=== PATIENT | female | born 1980 ===

== ENCOUNTER 2024-04-07 18:38 | Emergency (ER) | payer SELFPAY ==
[2024-04-07 18:41] VITALS: BP 190/98; PULSE 89; TEMP 37.2; O2SAT 98; BMI 36.6
[2024-04-07 18:57] LABS: Bilirubin Urine SMALL (NEGATIVE); Blood Urine LARGE (NEGATIVE); Clarity Urine CLEAR (CLEAR); Color Urine DK. BROWN (YELLOW); Glucose Urine UA NEGATIVE (NEGATIVE); Ketones Urine TRACE mg/dL (NEGATIVE); Leukocyte Esterase Urine TRACE (NEGATIVE); Nitrite Urine POSITIVE (NEGATIVE); Protein Urine >=300 mg/dL (NEG/TRACE); Specific Gravity Urine >=1.030 (1.005-1.025); pH Urine 6.5 (5.0-9.0)
[2024-04-07 18:58] LABS: Urine Microscopic Indicated YES
[2024-04-07 18:59] LABS: HCG Qualitative Urine* NEGATIVE (NEGATIVE); Internal Control Within Normal Limits
[2024-04-07] MEDS: PHENAZOPYRIDINE 100 MG TABLET 200 MG PO (19:05)
[2024-04-07 19:06] LABS: Bacteria Urine SMALL #/HPF (NONE SEEN); Mucus Urine NONE SEEN (NONE SEEN); RBC Urine >100 #/HPF (0-2)
[2024-04-07 19:08] LABS: Cast Seen? NONE SEEN #/LPF (NONE SEEN); Crystals Seen? None Seen #/HPF (None Seen); Squamous Epithelial Cell Urine RARE #/LPF (NONE/RARE); Urine Culture Indicated YES
[2024-04-07] MEDS: SULFAMETHOXAZOLE/TRIMETHOPRIM 800-160 MG TABLET 1 TAB PO (19:20)
--- NOTE | 2024-04-07 20:42 | ED_ITS ---
HPI - Female Genitourinary General Chief complaint: Urogenital-Female Stated complaint: UTI SYMPTOMS Time Seen by Provider: 04/07/24 18:43 Source: patient Mode of arrival: walk-in Limitations: no limitations History of Present Illness HPI Narrative: 43-year-old female presents to the emergency department with complaint of dysuria. Onset about an hour prior to arrival. Has had associated discolored urine, urinary frequency, constant pressure in her bladder region. Denies any fever, chills, nausea, vomiting, abdominal pain, back pain. History of urine infections in the past. Quality:?Burning, pressure Severity:?Moderate Timing:?As above, constant Context: Normal setting and activity? Modifying factors:?worse with urinating Associated symptoms: as above Related Data Previous Rx's ?Medication ?Instructions ?Recorded phenazopyridine 200 mg tablet 200 mg PO Q8H 6 doses #6 tabs 04/07/24 (Pyridium) sulfamethoxazole 800 1 tab PO BID 5 days #10 tabs 04/07/24 mg-trimethoprim 160 mg tablet (Bactrim DS) Allergies Allergy/AdvReac Type Severity Reaction Status Date / Time Penicillins Allergy Severe Hives Verified 04/07/24 18:45 Review of Systems ROS Constitutional Denies: fever or chills Cardiovascular Denies: chest pain Respiratory Denies: shortness of breath Gastrointestinal Denies: abdominal pain, nausea or vomiting Genitourinary Reports: painful urination, urinary frequency, blood in urine and pelvic pain; Denies: vaginal bleeding or vaginal discharge Exam Constitutional Vital Signs, click to edit/add: Last Vital Signs Temp 99.0 F 04/07/24 18:41 Pulse 89 04/07/24 18:41 Resp 18 04/07/24 18:41 BP 190/98 H 04/07/24 18:41 Pulse Ox 98 04/07/24 18:41 O2 Del Method Room Air 04/07/24 18:41 Documenting provider has reviewed patient's vital signs: yes Common normals: no apparent distress, oriented x3 and alert General appearance: not in distress [facility] Common normals: normocephalic and head/scalp atraumatic Head and scalp: normocephalic and atraumatic Respiratory Common normals: normal respiratory effort and clear to auscultation bilaterally Effort & inspection: able to speak in complete sentences Auscultation: clear to auscultation bilaterally Cardio Common normals: regular rate, regular rhythm and no murmurs Rate: regular rate Rhythm: regular rhythm GI Common normals: Normal to inspection, nondistended, normoactive bowel sounds present, soft to palpation and non-tender Palpation: soft Common normals: no CVA tenderness Bladder/kidney exam: no CVA tenderness Back & Pelvis Common normals: no CVA tenderness Neuro Common normals: oriented x3, moves all extremities, no focal motor deficits and gait normal Sensorium/orientation: alert Course Vital Signs Vital signs: Vital Signs Temperature 99.0 F 04/07/24 18:41 Pulse Rate 89 04/07/24 18:41 Respiratory Rate 18 04/07/24 18:41 Blood Pressure 190/98 H 04/07/24 18:41 Pulse Oximetry 98 04/07/24 18:41 Oxygen Delivery Method Room Air 04/07/24 18:41 Temperature 99.0 F 04/07/24 18:41 Pulse Rate 89 04/07/24 18:41 Respiratory Rate 18 04/07/24 18:41 Blood Pressure 190/98 H 04/07/24 18:41 Pulse Oximetry 98 04/07/24 18:41 Oxygen Delivery Method Room Air 04/07/24 18:41 MDM - Female Genitourinary MDM Narrative Medical decision making narrative: This is a pleasant 43-year-old female presents to the emergency department complete she chief complaint of dysuria. Described as burning. Has constant pressure in bladder region as well. Onset about an hour prior to arrival. Has had associated urinary frequency and discoloration of the urine. Denies any fever, chills, nausea, vomiting, back or flank pain, vaginal discharge. On arrival, afebrile, vital signs are stable. On exam, nontoxic, well-appearing patient in no distress. Heart regular rate and rhythm. Lung sounds clear and equal bilaterally. Abdomen soft, nontender. No CVA tenderness. Urinalysis reveals evidence of infection with nitrates, white blood cells, red blood cells. Culture was ordered. test was negative. Favor cystitis Kidney stones, pyelonephritis less likely based on history and physical exam Patient was given dose of Pyridium and Bactrim in the emergency department Disposition ? The patient was discharged. Plan: Patient will be discharged to home. Condition at time of disposition: stable Prescription for Bactrim and Pyridium sent to her pharmacy. Advised to follow up with primary provider. Advised to return for any worsening and/or development of new, concerning signs or symptoms PLEASE NOTE: Portions of the medical record may have been produced using electronic scientific laboratory supervisor and may contain errors with respect to translation of words which may not have been identified prior to finalization of the chart. Medical Records Attestation: I reviewed the patient's medical records. Lab Data Attestation: I reviewed the patient's lab results. Labs: Lab Results 04/07/24 Range/Units 18:46 Urine Color Dk. brown (YELLOW) Urine Clarity Clear (CLEAR) Urine pH 6.5 (5.0-9.0) Ur Specific [place] >=1.030 A (1.005-1.025) Urine Protein >=300 A (NEG/TRACE) mg/dL Urine Glucose (UA) Negative (NEGATIVE) mg/dL Urine Ketones Trace A (NEGATIVE) mg/dL Urine Occult Blood Large A (NEGATIVE) Urine Nitrite Positive A (NEGATIVE) Urine Bilirubin Small A (NEGATIVE) Urine Urobilinogen 1.0 (0.2-1.0) EU/dL Ur Leukocyte Esterase Trace A (NEGATIVE) Urine RBC >100 A (0-2) #/HPF Urine WBC 5-10 A (NONE SEEN) #/HPF Ur Squamous Epith Cells Rare (NONE/RARE) #/LPF Urine Crystals None seen (None Seen) #/HPF Urine Bacteria Small A (NONE SEEN) #/HPF Urine Casts None seen (NONE SEEN) #/LPF Urine Mucus None seen (NONE SEEN) Ur Culture Indicated? Yes Urine HCG, Qual Negative (NEGATIVE) Discharge Plan Discharge Stand Alone Forms: Portal Instructions Chief Complaint: Urogenital-Female Clinical Impression: Cystitis, Dysuria Patient Disposition: Home, Self-Care Time of Disposition Decision: 19:23 Condition: Good Mode of Transportation: Private Vehicle Prescriptions / Home Meds: New sulfamethoxazole-trimethoprim [Bactrim DS] 800-160 mg tablet 1 tab PO BID 5 Days Qty: 10 0RF phenazopyridine [Pyridium] 200 mg tablet 200 mg PO Q8H Qty: 6 0RF Print Language: Slovenian Instructions: Urinary Tract Infection in Women (ED) Referrals: Vu Childs MD [Physician] - 1 week Discharge Date/Time: 04/07/24 19:51
== END 2024-04-07 19:51 | disposition home or self-care (01) ==
PROVIDERS: Physician Assistant; Emergency Provider Emergency Medicine
DX: N30.90 Cystitis, unspecified without hematuria (principal); R30.0 Dysuria
CPT/HCPCS: 81001; 84703; 87086; 99283

== ENCOUNTER 2024-05-27 20:39 | Emergency (ER) | payer OTHER, SELFPAY ==
[2024-05-27 20:44] VITALS: BP 198/93; PULSE 79; TEMP 36.8; O2SAT 98; BMI 39.5
--- OUTSIDE RECORDS SUMMARY | 2024-05-27 20:48 | XMS_ITS | CCD ---
Author Organization [facility] Care Team Providers Care Skein Straightener Name Role Phone No, Physician Unavailable Unavailable Dilip Christensen Primary Care Provider Unavailable Primary Care Provider UnavailCYDNEY Plunkett Referring Unavailable No Family, Physician Primary Care Unavailable Dilip Christensen MD Primary Care Provider DILIP CHRISTENSEN Primary Care Unavailable SENAIT MINAYA Attending Unavailable NONA YUNG Admitting Unavailable NONA YUNG Referring Unavailable DILIP CHRISTENSEN Primary Care Unavailable FAZAL WALKER Attending Unavailable Dilip Christensen MD Primary Care Provider [phone] MANI SCHAFFER Attending Unavailable DILIP CHRISTENSEN Primary Care Unavailable MANI SCHAFFER Attending Unavailable FLORESITA JENKINS Referring Unavaila ble DILIP CHRISTENSEN Primary Care Unavailable Floresita Jenkins Primary Care Provider Renee Koehlera Lucrecia Unavailable Hi Hull Unavailable Unavailable Unavailable Unavailable Zakia DESIGN AGENT, CNM L Attending Unavailable ERIKA Koehler Ashyoava L Unavailable [phone] Jennifer King MD Unavailable [phone] Floresita Jenkins Primary Care Provider [phone] Zakia JAMES Asheena L Unavailable Jennifer King MD Unavailable VANDANA DUMONT Attending Unav ailable ONE, TRAUMA Consulting Unavailable DILIP CHRISTENSEN Primary Care Unavailable VANDANA DUMONT Admitting Unav ailable VANDANA DUMONT Referring Unav ailable DILIP CHRISTENSEN Primary Care Unavailable Sussy ULRICH, Dilip Primary Care Provider Dilip Christensen MD Unavailable [facility], sarah Schafer Unavailable [facility], Ye Unavailable *Insured Unavailable Unavailable Blanco CNM, Bhavya Unavailable DIET/NUTRITIONAL COUNSELING, *[facility] Unavailable Unavailable [facility] Unavailable [facility] Unavailable [facility] Unavailable Denzel LUGO, Sterling Unavailable BENEFITS MANAGER, *[facility] Unavailable [facility] Unavailable [employer], [facility], [place] Unavailab le Gregory PLANNER CHIEF, Floresita Unavailable [phone] [facility]ga Walsh Unavailable zzz. Farhana ULRICH, Isiah Unavailable Toya ROGEL, Melissa Unavailable Unavailable Brandi ROGEL, Lucie Unavailable Unavailable Jeff ROGEL, Abdisammjake Unavailable Unavailab le blas. Rex ROGEL, Garearl Unavailable Unavaila ble zzz. Yfn RETORT SETTER, Miranda Unavailable Unavailab le zzz. Jami ROGEL, Wendy Unavailable Unavailabl e param. Hattie Mayo Unavailable Unavailable zzz. Vishnu ROGEL, Ligia Unavailable Unavailable zneto. Sussy ULRICH, Dilip Unavailable [phone] [facility], Braeden Schafer Unavailable [facility], [place] Unavailable Unavailable Unavailable Kiko MA, Katarina Unavailable Unavailab le Patrick ROGEL, Patricia Unavailable YE Donald Referring Unavailable BENNY CRENSHAW Attending Unavailable Brian ROGEL, Mariel Unavailable Unavailable ADRIÁN TALBOT Attending Unavail able SUN, QIXIN Primary Care Unavailable ADRIÁN TALBOT Attending Unavail able SUN, QIXIN Primary Care Unavailable GREGORY FLORESITA, FLORESITA~[id number] GREGORY Primar y Care Unavailable MARY PADILLA~[id number] Attending Unavailable GREGORY FLORESITA, FLORESITA~[id number] GREGORY Primar y Care Unavailable JORGE LUIS GORDON Attending Unavailable GREGORY FLORESITA, FLORESITA~[id number] GREOGRY Primar y Care Unavailable TIGRE SONG Attending Unavailabl e GREGORY FLORESITA, FLORESITA~[id number] GREGORY Primar y Care Unavailable GREGORY FLORESITA, FLORESITA~[id number] GREGORY Primar y Care Unavailable PAPITO HOFFMAN Attending Unavailable GREGORY FLORESITA, FLORESITA~[id number] GREGORY Primar y Care Unavailable BEAR TREY~[id number], BEAR M ARCUS~[id number] BEAR Attending Unavailable Gregory [facility], Floresita Unavailable Veronika Merino MA, Mariel Unavailable [facility] nav[facility] z[facility]. Ye Dominguez CNP Unavailable zzz. Olga Garcia CNP Unavailable [phone] zzz. Brandi ROGEL, Lucie Unavailable Unavailab le zzz. Patrick ROGEL, Patricia Unavailable U navailable zzz. Veronika Merino MA Mariel Unavailable Unavailable zzz. Ora PLANNER CHIEF, [place] Unavailable NICHOLE HO Referring Unavaila ble NICHOLE HO Referring Unavaila ble Anna FRANCIS, Hardy Unavailable [facility] Derek JAMES Unavailable Ruben ROGEL, Patricia Unavailable Unavailable SUN, QIXIN Primary Care Unavailable ROSALIND LÓPEZ Attending Unavailable ONE, TRAUMA Consulting Unavailable SANTIAGO GARCIA Attending Un available SUN, QIXIN Primary Care Unavailable SUN, QIXIN Primary Care Unavailable JAYY CARRANZA Attending Unavai lable SUN, QIXIN Primary Care Unavailable SANTIAGO GARCIA Referring Un available SANTIAGO GARCIA Admitting Un available SUN, QIXIN Primary Care Unavailable SYSTEM, PROVIDER NOT IN Referring Unavaila ble SYSTEM, PROVIDER NOT IN Admitting Unavaila ble Unavailable Primary Care Provider UnavailEhsan Stone Attending Unavailable Christos Christian Attending Unavailable SASHA ALVAREZ Attending Unavailable Allergies Allergy Classification Reported Allergen(s) Allergy Type Date of Onset Reaction(s) Facility Penicillins (antibiotic) (3 sources) Penicillins; Translations: [PENICILLINS] Drug Allergy 5 [facility] (15 sources) Penicillins; Translations: [PENICILLINS] Propensity to adverse reactions to drug 5 [facility] (2 sources) Penicillins Propensity to adverse reactions to drug 5 [facility] (20 sources) Latex; Translations: [LATEX] Propensity to adverse reactions 2 Swelling [facility] (20 sources) Penicillins Propensity to adverse reactions 5 Hives [facility] (14 sources) Bee Venom Protein (Honey Bee); Translations: [BEE VENOM PROTEIN (HONEY BEE)] Propensity to adverse reactions 1 Angioedema, Unknown [facility] (12 sources) Bee pollen Drug Allergy 3 Other (See Comments) [facility]; [facility] @ [facility] Work Phone: (11 sources) Latex Gloves Small *MEDICAL DEVICES AND SUPPLIES* Chest pain [facility]; [facility] @ [facility] Work Phone: (4 sources) Penicillins [facility]; Armaan Hernandez Work Phone: (1 source) Bee pollen; Translations: [BEE POLLEN] Propensity to adverse reactions to drug (disorder) 3 [facility] (1 source) Bee/Wasp/Ant venom; Translations: [Bee Stings] Propensity to adverse reactions (disorder) [facility] Repository Medications Current Medications Medication Drug Class(es) Dates Sig (Normalized) Sig (Original) [id number] actuat albuterol 0.09 mg/actuat metered dose inhaler (5 sources) beta2-Adrenergic Agonist Start: 10-07-2019 take 2 puff(s) by inhalation every six hours as needed for wheezing albuterol 90 mcg/actuation inhaler Inhale 2 (two) puffs every 6 (six) hours as needed for wheezing . 1 Inhaler 0 10/07/2019 Active albuterol 90 mcg/actuation inhaler (3 sources) Start: 10-07-2019 take 2 puff(s) by inhalation every six hours as needed for wheezing albuterol 90 mcg/actuation inhaler Inhale 2 (two) puffs every 6 (six) hours as needed for wheezing . 1 Inhaler 0 10/07/2019 Active Start: 10-07-2019 End: 10-14-2019 take 2 puff(s) by inhalation every six hours as needed for wheezing albuterol 90 mcg/actuation inhaler Inhale 2 (two) puffs every 6 (six) hours as needed for wheezing . 1 Inhaler 0 10/07/2019 10/14/2019 Active cefdinir 300 mg oral capsule (2 sources) Cephalosporin Antibacterial Start: 01-12-2019 End: 01-22-2019 take 1 capsule by mouth twice daily cefdinir (OMNICEF) 300 MG capsule Take 1 (one) capsule (300 mg total) by mouth 2 (two) times a day for 10 days . 20 capsule 0 01/12/2019 01/22/2019 Active cephalexin 500 mg oral capsule (4 sources) Cephalosporin Antibacterial Start: 09-17-2023 End: 09-27-2023 take 1 capsule by mouth four times daily cephalexin (KEFLEX) 500 mg capsule Take 1 capsule (500 mg total) by mouth 4 (four) times a day for 10 days. 40 capsule 0 09/17/2023 09/27/2023 Active Start: 09-17-2023 End: 09-17-2023 take 500 mg by mouth once 500 mg, oral, Once, On Sat at 1135, For 1 dose Indication: Skin/Soft Tissue Start: 12-22-2019 End: 01-01-2020 take 1 capsule by mouth four times daily cephALEXin (KEFLEX) 500 MG capsule Take 1 (one) capsule (500 mg total) by mouth 4 (four) times a day for 10 days . 40 capsule 0 12/22/2019 01/01/2020 Active cholecalciferol 0.025 mg oral tablet (20 sources) Vitamin D Start: 09-22-2021 take 1 tablet by mouth once daily Vitamin D (Cholecalciferol) 25 MCG (1000 UT) Oral Tablet ; 1 (one) Tablet daily for 0 days Quantity: 90 {Tablet} Refills: 4 Ordered: 18-Apr-2023 ERIKA Jenkins Start: 18-Apr-2023 cyclobenzaprine hydrochloride 10 mg oral tablet (20 sources) Muscle Relaxant Start: 04-16-2023 take 1 tablet by mouth twice daily as needed Cyclobenzaprine HCl 10 MG Oral Tablet ; 1 (one) Tablet two times daily, as needed for 0 days Quantity: 60 {Tablet} Refills: 1 Ordered: 16-Apr-2023 ERIKA Nguyen Start: 16-Apr-2023 Comments: Medication taken as needed. Start: 01-15-2019 End: 04-15-2023 take 1 tablet by mouth three times daily as needed for muscle spasms cyclobenzaprine (FLEXERIL) 10 MG tablet Take 1 (one) tablet (10 mg total) by mouth 3 (three) times a day as needed for muscle spasms . 21 tablet 0 04/05/2019 04/15/2023 Discontinued Comment on above: Medication taken as needed. docusate sodium 100 mg oral capsule (1 source) Start: 2 End: 2 take 1 capsule by mouth twice daily docusate sodium (Colace) 100 mg capsule Take 1 capsule (100 mg total) by mouth 2 (two) times a day for 10 days. 20 each 0 02/24/2022 03/06/2022 Active doxycycline hyclate 100 mg oral tablet (1 source) Tetracycline-class Drug Start: 0 End: 0 take 1 tablet by mouth twice daily doxycycline hyclate (VIBRA-TABS) 100 MG tablet Take 1 (one) tablet (100 mg total) by mouth 2 (two) times a day for 10 days . 20 tablet 0 10/07/2019 10/17/2019 Active gabapentin 300 mg oral capsule (7 sources) Anti-epileptic Agent Start: 9 take 1 capsule by mouth three times daily gabapentin (NEURONTIN) 300 MG capsule Take 1 (one) capsule (300 mg total) by mouth 3 (three) times a day . 0 06/15/2019 Active ibuprofen 600 mg oral tablet (20 sources) Nonsteroidal Anti-inflammatory Drug Start: 2 End: 2 take 1 tablet by mouth every six hours as needed ibuprofen (ADVIL,MOTRIN) 600 mg tablet Take 1 tablet (600 mg total) by mouth every 6 (six) hours if needed for mild pain for up to 10 days. 40 tablet 0 02/24/2022 03/06/2022 Active Start: 02-21-2020 End: 02-21-2020 ibuprofen (ADVIL,MOTRIN) tab let 400 mg Start: 10-07-2019 End: 10-07-2019 ibuprofen (ADVIL,MOTRIN) tab let 400 mg Start: 02-19-2019 End: 04-05-2019 take 1 tablet by mouth every six hours as needed ibuprofen (ADVIL,MOTRIN) 600 MG tablet Take 1 (one) tablet (600 mg total) by mouth every 6 (six) hours as needed for pain . 20 tablet 0 02/19/2019 04/05/2019 Discontinued (Therapy completed) Start: 02-19-2019 End: 02-19-2019 ibuprofen (ADVIL,MOTRIN) tab let 400 mg Start: 01-08-2018 End: 01-28-2018 take 1 tablet by mouth three times daily as needed for headache IBU 600 MG Oral Tablet ; 1 (one) Tablet three times daily as needed for headache for 0 days Quantity: 30 {Tablet} Refills: 1 Ordered: 28-Jan-2018 LIANG Ramsay Start: 08-Jan-2018 End: 28-Jan-2018 Status: Inactive Comments: Medication taken as needed. Comment on above: Medication taken as needed. lidocaine hydrochloride 10 mg/ml topical lotion (7 sources) Antiarrhythmic, Amide Local Anesthetic Start: 09-21-2021 Minerin External Lotion ; 1 (one) application daily for 0 days Quantity: 1 {Milliliter} Refills: 2 Ordered: 21-Sep-2021 ERIKA Jenkins Start: 21-Sep-2021 Start: 01-12-2019 End: 02-11-2019 lidocaine (XYLOCAINE) 2 % je lly Apply topically 3 (three) times a day as needed . 30 mL 0 01/12/2019 02/11/2019 Active Start: 01-12-2019 End: 01-12-2019 lidocaine HCl (UROJET) 2 % a pplicator 1 application losartan potassium 25 mg oral tablet (1 source) Angiotensin 2 Receptor Mari Start: 12-31-2022 take 1 tablet by mouth once daily losartan (COZAAR) 25 MG tablet Take 1 (one) tablet (25 mg total) by mouth daily . 30 tablet 0 12/31/2022 Active meloxicam 15 mg oral tablet (20 sources) Nonsteroidal Anti-inflammatory Drug Start: 09-21-2021 take 1 tablet by mouth once daily Meloxicam 15 MG Oral Tablet ; 1 (one) Tablet daily for 0 days Quantity: 30 {Tablet} Refills: 1 Ordered: 21-Sep-2021 ERIKA Jenkins Start: 21-Sep-2021 take 1 tablet by mouth once sunny y meloxicam (MOBIC) 7.5 MG tablet Take 1 (one) tablet (7.5 mg total) by mouth daily . 0 Active metroNIDAZOLE 500 mg oral tablet (7 sources) Nitroimidazole Antimicrobial Start: 04-09-2022 take 1 tablet by mouth twice daily metroNIDAZOLE 500 MG Oral Tablet ; 1 (one) Tablet Tablet two times daily for 0 days Quantity: 14 {Tablet} Refills: 0 Ordered: 09-Apr-2022 MD Jennifer King Start: 09-Apr-2022 Start: 04-03-2022 take 1 tablet by [facility] twice daily metroNIDAZOLE 500 MG Oral Tablet ; 1 (one) Tablet two times daily for 7 days Quantity: 14 {Tablet} Refills: 0 Ordered: 03-Apr-2022 John Koehler Start: 03-Apr-2022 Minerin Creme External Cream (17 sources) Start: 04-18-2023 Minerin Creme External Cream ; 1 Application as directed for 0 days Quantity: 1 {Applicator} Refills: 2 Ordered: 18-Apr-2023 ERIKA Jenkins Start: 18-Apr-2023 Minerin External Lotion (14 sources) Start: 09-21-2021 Minerin Information Technology Specialist al Lotion ; 1 (one) application daily for 0 days Quantity: 1 {Milliliter} Refills: 2 Ordered: 21-Sep-2021 ERIKA Jenkins Start: 21-Sep-2021 naproxen 500 mg oral tablet (12 sources) Nonsteroidal Anti-inflammatory Drug Start: 05-25-2023 End: 06-01-2023 take 1 tablet by mouth twice daily at mealtime naproxen (NAPROSYN) 500 mg tablet Take 1 tablet (500 mg total) by mouth 2 (two) times a day with meals for 7 days. 14 each 0 05/25/2023 06/01/2023 Active Start: 04-05-2019 End: 04-12-2019 take 1 tablet by mouth twice daily at mealtime naproxen (EC NAPROSYN) 500 MG EC tablet Take 1 (one) tablet (500 mg total) by mouth 2 (two) times a day with meals for 7 days . 14 tablet 0 04/05/2019 04/12/2019 Active Start: 01-15-2019 End: 01-15-2019 naproxen (NAPROSYN) tablet 5 00 mg Start: 01-15-2019 End: 01-25-2019 take 1 tablet by mouth twice daily as needed naproxen (NAPROSYN) 500 MG tablet Take 1 (one) tablet (500 mg total) by mouth 2 (two) times a day as needed . 20 tablet 0 01/15/2019 01/25/2019 Active Start: 01-08-2019 End: 01-13-2019 take 1 tablet by mouth twice daily at mealtime naproxen (EC NAPROSYN) 500 MG EC tablet Take 1 (one) tablet (500 mg total) by mouth 2 (two) times a day with meals for 5 days . 10 tablet 0 01/08/2019 01/13/2019 Active take 1 tablet by mouth once napr oxen sodium (Aleve) 220 mg tablet Take 1 tablet (220 mg total) by mouth every 12 (twelve) hours if needed for mild pain. OTC 0 Active norethindrone 0.35 mg oral tablet (6 sources) Start: 04-13-2022 take 1 tablet by mouth once daily Norethindrone 0.35 MG Oral Tablet ; 1 (one) Tablet Tablet daily for 0 days Quantity: 28 {Tablet} Refills: 12 Ordered: 13-Apr-2022 Hi Hull Start: 13-Apr-2022 ondansetron 4 mg disintegrating oral tablet (1 source) Serotonin-3 Receptor Antagonist Start: 12-07-2022 End: 12-11-2022 apply 1 tablet topically every eight hours for nausea ondansetron ODT (ZOFRAN-ODT) 4 mg disintegrating tablet Dissolve 1 tablet (4 mg total) on top of the tongue every 8 (eight) hours if needed for nausea or vomiting for up to 4 days. 12 tablet 0 12/07/2022 12/11/2022 Active 24 hr oxybutynin chloride 10 mg extended release oral tablet (2 sources) Cholinergic Muscarinic Antagonist Start: 01-11-2024 oxyBUTYnin chloride ER 10 mg tablet,extended release 24 hr ; 1 (one) tablet daily for 90 days Quantity: 90 {Tablet} Refills: 1 Ordered: 21-Jan-2024 ERIKA Steele Start: 11-Jan-2024 oxyCODONE hydrochloride 5 mg oral tablet (8 sources) Opioid Agonist Start: 02-24-2022 End: 02-24-2022 take 1 tablet by mouth every four hours oxyCODONE (ROXICODONE) 5 mg immediate release tablet Take 1 tablet (5 mg total) by mouth every 4 (four) hours if needed (Breakthrough pain). Max Daily Amount: 30 mg 15 tablet 0 02/24/2022 Active petrolatum 610 mg/ml topical cream (4 sources) Start: 04-18-2023 Minerin Creme External Cream ; 1 Application as directed for 0 days Quantity: 1 {Applicator} Refills: 2 Ordered: 18-Apr-2023 ERIKA Jenkins Start: 18-Apr-2023 Start: 09-22-2021 Minerin Creme External Cream ; 1 Application as directed for 0 days Quantity: 1 {Applicator} Refills: 2 Ordered: 22-Sep-2021 JUAN F Isaac Start: 22-Sep-2021 predniSONE 20 mg oral tablet (3 sources) Start: 01-11-2024 take 3 tablets by mouth once daily, then take 2 tablets by mouth once daily, then take 1 tablet by mouth once daily predniSONE 20 mg tablet ; 1 (one) Tablet uad for 15 days Quantity: 30 {Tablet} Refills: 0 Ordered: 21-Jan-2024 ERIKA Steele Start: 11-Jan-2024 Comments: Take 3 tabs po daily x 5 days, then 2 tabs po daily x 5 days, then 1 tab po daily x 5 days Start: 04-15-2023 End: 04-24-2023 predniSONE (DELTASONE) 10 MG tablet Indications: Lateral epicondylitis of left elbow Take 4 tabs PO QD x 3d, then 2 tabs PO QD x 2, then 1 tab PO QD x 2d then stop . 18 tablet 0 04/15/2023 04/24/2023 Active Comment on above: Take 3 tabs po daily x 5 days, then 2 tabs po daily x 5 days, then 1 tab po daily x 5 days Rollator Ultra-Light Miscellaneous (14 sources) Start: 10-10-2021 Rollator Ultra-Light Miscellaneous ; as directed for 0 days Quantity: 1 {Each} Refills: 0 Ordered: 10-Oct-2021 JUAN F Isaac Start: 10-Oct-2021 Completed/Discontinued Medications Medication Drug Class(es) Dates Sig (Normalized) Sig (Original) albuterol 0.833 mg/ml / ipratropium bromide 0.167 mg/ml inhalant solution (1 source) Anticholinergic, beta2-Adrenergic Agonist Start: 10-07-2019 End: 10-07-2019 ipratropium-albute rol (DUO-NEB) 0.5-2.5 mg/3 ml nebulizer solution 3 mL amoxicillin 500 mg oral capsule (20 sources) Penicillin-class Antibacterial Start: 07-02-2018 End: 12-16-2018 take 1 capsule by mouth three times daily Amoxicillin 500 MG Oral Capsule ; 1 (one) Capsule Capsule three times daily for 0 days Quantity: 21 {Capsule} Refills: 0 Ordered: 16-Dec-2018 JUAN F Botello Start: 02-Jul-2018 End: 16-Dec-2018 Status: Inactive benzoyl peroxide 50 mg/ml medicated liquid soap (2 sources) Start: 12-07-2021 End: 04-15-2023 benzoyl peroxide (BENZAC AC) 5 % external wash Use as a wash to the affected areas once daily . 226 g 11 12/07/2021 04/15/2023 Discontinued blood pressure test kit-large cuff (17 sources) Start: 05-29-2023 End: 01-08-2024 blood pressure test kit-large cuff ; 1 (one) kit daily for 0 days Quantity: 1 Kit Refills: 0 Ordered: 08-Jan-2024 PENNY Castillo Start: 29-May-2023 End: 08-Jan-2024 Status: Inactive Start: 05-29-2023 blood pressure test kit-large cuff ; 1 (one) kit daily for 0 days Quantity: 1 Kit Refills: 0 Ordered: 29-May-2023 JUAN F Alfaro Start: 29-May-2023 Start: 05-29-2023 blood pressure test kit-large cuff ; 1 (one) kit daily for 0 days Quantity: 1 Kit Refills: 0 Ordered: 29-May-2023 JUAN F Collins Start: 29-May-2023 Start: 05-29-2023 blood pressure test kit-large cuff ; 1 (one) kit daily for 0 days Quantity: 1 Kit Refills: 0 Ordered: 29-May-2023 JUAN F Torres Start: 29-May-2023 Start: 05-29-2023 blood pressure test kit-large cuff ; 1 (one) kit daily for 0 days Quantity: 1 Kit Refills: 0 Ordered: 29-May-2023 ERIKA Dominguez Start: 29-May-2023 calcium chloride 0.0014 meq/ ml / potassium chloride 0.004 meq/ml / sodium chloride 0.103 meq/ml / sodium lactate 0.028 meq/ml injectable solution (1 source) Start: 02-24-2022 End: 02-24-2022 lactated Ringer's infusion Cane Miscellaneous (17 sources) Start: 07-24-2018 End: 03-12-2019 Cane Miscellaneous ; 1 (one) Each Each as directed for 0 days Quantity: 1 {Each} Refills: 0 Ordered: 12-Mar-2019 JUAN F Ospina Start: 24-Jul-2018 End: 12-Mar-2019 Status: Inactive Start: 07-24-2018 End: 03-12-2019 Cane Miscellaneous ; 1 (one) Each Each as directed for 0 days Quantity: 1 {Each} Refills: 0 Ordered: 12-Mar-2019 JUAN F Paz Start: 24-Jul-2018 End: 12-Mar-2019 Status: Inactive clindamycin 10 mg/ml topical lotion (4 sources) Lincosamide Antibacterial Start: 12-07-2021 End: 04-15-2023 clindamycin (CLEOCIN T) 1 % lotion AAA QD . 60 mL 3 12/07/2021 04/15/2023 Discontinued Start: 01-08-2019 End: 01-18-2019 take 2 capsules by mouth four times daily clindamycin (CLEOCIN) 150 MG capsule Take 2 (two) capsules (300 mg total) by mouth 4 (four) times a day for 10 days . 80 capsule 0 01/08/2019 01/12/2019 Discontinued codeine phosphate 2 mg/ml / guaiFENesin 20 mg/ml oral solution (8 sources) Opioid Agonist Start: 12-06-2014 End: 04-05-2019 take 10 mL by mouth four times daily as needed for cough guaiFENesin-codeine (TUSSI-ORGANIDIN NR) 10-100 mg/5 mL syrup Take 10 mL by mouth 4 (four) times a day as needed for cough. 240 mL 0 12/06/2014 04/05/2019 Discontinued (Therapy completed) dicyclomine hydrochloride 10 mg oral capsule (1 source) Anticholinergic Start: 01-12-2019 End: 01-12-2019 dicyclomine (BENTYL) capsule 10 mg diphenhydrAMINE (1 source) Histamine-1 Receptor Antagonist Start: 02-24-2022 End: 02-24-2022 diphenhydrAMINE (BENADRYL) injection 25 mg fluticasone propionate 0.05 mg/actuat metered dose nasal spray (1 source) Corticosteroid Start: 04-11-2022 End: 04-15-2023 take 2 spray(s) nasal route once daily fluticasone propionate (FLONASE) 50 mcg/actuation nasal spray Indications: Environmental and seasonal allergies Instill 2 (two) sprays into each nostril daily . 16 g 0 04/11/2022 04/15/2023 Discontinued 250 ml glucose 50 mg/ml / sodium chloride 9 mg/ml injection (1 source) Start: 02-24-2022 End: 02-24-2022 dextrose 5 % and sodium chloride 0.9 % bolus 1,000 mL 2 ml glycopyrrolate 0.2 mg/ml injection (1 source) Start: 02-24-2022 End: 02-24-2022 glycopyrrolate (ROBINUL) injection 0.1 mg hydroCHLOROthiazide 25 mg oral tablet (20 sources) Thiazide Diuretic take 1 mg by mouth once daily HydroCHLOROthiazide 25 MG Oral Tablet ; daily (25 MG) Status: Inactive hydroCHLOROthiazide 12.5 mg / lisinopril 20 mg oral tablet (20 sources) Thiazide Diuretic, Angiotensin Converting Enzyme Inhibitor Start: 03-17-2019 End: 09-16-2023 lisinopriL 20 mg-hydrochlorothiazide 12.5 mg tablet ; 2 (two) Tablet daily for 90 days Quantity: 180 {Tablet} Refills: 0 Ordered: 18-Jun-2023 ERIKA Sandoval Start: 18-Jun-2023 End: 16-Sep-2023 Status: Inactive Comments: Increase in dose. Start: 12-16-2018 End: 02-21-2020 lisinopril-hydrochlorothiazi de (PRINZIDE,ZESTORETIC) 10-12.5 mg per tablet Comment on above: Increase in dose. hydroCHLOROthiazide 25 mg / triamterene 37.5 mg oral capsule (20 sources) Potassium-sparin g Diuretic, Thiazide Diuretic Start: 07-02-20 End: 07-02-20 18 take 1 capsule by mouth once daily Dyazide 37.5-25 MG Oral Capsule ; 1 (one) Capsule daily for 0 days Quantity: 30 {Capsule} Refills: 3 Ordered: 02-Jul-2018 MD Dilip Balderrama Start: 02-Jul-2018 End: 02-Jul-2018 Status: Discontinued 0.5 ml HYDROmorphone hydrochloride 1 mg/ml prefilled syringe (3 sources) Opioid Agonist Start: 02-25-20 End: 02-25-20 HYDROmorphone (DILAUDID) injection 0.5 mg Start: 02-24-2022 End: 02-24-2022 HYDROmorphone (DILAUDID) 0.5 mg/0.5 mL injection - ADS Override Pull Start: 06-29-2018 End: 06-29-2018 HYDROmorphone (DILAUDID) inj ection 1 mg 1 ml ketorolac tromethamine 30 mg/ml injection (1 source) Nonsteroidal Anti-inflammatory Drug, Cyclooxygenase Inhibitor Start: 06-29-2018 End: 06-29-2018 ketorolac (TORADOL) injection 30 mg labetalol hydrochloride 5 mg/ml injectable solution (1 source) beta-Adrenergic Mari Start: 05-25-2023 End: 05-25-2023 labetalol (NORMODYNE) injection 10 mg lisinopril 5 mg oral tablet (20 sources) Angiotensin Converting Enzyme Inhibitor Start: 07-02-2018 End: 07-02-2018 take 1 tablet by mouth once daily Lisinopril 5 MG Oral Tablet ; 1 (one) Tablet daily for 0 days Quantity: 30 {Tablet} Refills: 1 Ordered: 02-Jul-2018 MD Dilip Balderrama Start: 02-Jul-2018 End: 02-Jul-2018 Status: Discontinued Start: 02-03-2018 End: 05-25-2023 take 1 tablet by mouth once daily lisinopriL (PRINIVIL,ZESTRIL) 20 mg tablet Take 1 tablet (20 mg total) by mouth 1 (one) time each day. 0 02/03/2018 05/25/2023 Discontinued (Entered in Error) 2 ml metoclopramide 5 mg/ml injection (1 source) Dopamine-2 Receptor Antagonist Start: 02-24-2022 End: 02-24-2022 metoclopramide (REGLAN) injection 10 mg Minerin lotion (3 sources) Start: 09-21-2021 End: 01-08-2024 Minerin lotion ; 1 (one) application daily for 0 days Quantity: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 mmol/L Normal 96 - 10 6 mmol/L [facility]; [address] Work Phone: Comment on above: PATIENT WAS FASTINGP ERFORMED BY: BELLO Labtere FletcherJmqsup1395 [address] RoadDublin [place] [id number] Information: SRC: Cholesterol [Mass/Vol] 176 mg/dL Normal 100 - 199 mg/dL [facility]; [address] Work Phone: Comment on above: PATIENT WAS FASTINGP ERFORMED BY: BELLO Labconasir FletcherPstunx3893 New RoadDublin [place] [id number] Cholesterol in HDL [Mass/Vol] 39 mg/dL Abnormal [facility]; [address] Work Phone: Comment on above: PATIENT WAS FASTINGP ERFORMED BY: BELLO Labconasir FletcherJbceiv4312 [address] RoadDublin [place] [id number] Cholesterol in LDL [Mass/Vol] 108 mg/dL Abnormal 0 - 99 mg/dL [facility]; [address] Work Phone: Comment on above: PATIENT WAS FASTINGP ERFORMED BY: BELLO [facility] Mdpxns1894 [address] RoadDublin [place] [id number] Cholesterol in VLDL [Mass/Vol] 29 mg/dL Normal 5 - 40 mg/dL [facility]; [address] Work Phone: Comment on above: PATIENT WAS FASTINGP ERFORMED BY: BELLO Pena6370 [facility] [id number] CO2 [Moles/Vol] 23 mmol/L Normal 20 - 29 mmol/L [facility]; [address] Work Phone: Comment on above: PATIENT WAS FASTINGP ERFORMED BY: BELLO Benitez Juhira3496 [facility] [id number] Information: SRC: Cobalamin (Vitamin B12) [Mass/Vol] 364 pg/mL Normal 232 - 1245 pg/mL [facility]; [address] Work Phone: Comment on above: PATIENT WAS FASTINGP ERFORMED BY: Eli Xzmcpo8803 [facility] [id number] Information: SRC: Creatinine [Mass/Vol] 0.65 mg/dL Normal 0.57 - 1.00 mg/dL [facility]; [address] Work Phone: Comment on above: PATIENT WAS FASTINGP ERFORMED BY: Eli Yeocio1149 [facility] [id number] Information: SRC: GFR/1.73 sq M.predicted among blacks CKD-EPI (S/P/Bld) [Vol rate/Area] 129 mL/min/1.73 Normal [facility]; [address] Work Phone: Comment on above: In accordance with recommendations from the NKF-ASN Task force, [facility] is in the process of updating its eGFR calculation to the 2020 CKD-EPI creatinine equation that estimates kidney function without a race variable. PATIENT WAS FASTINGP ERFORMED BY: BELLO Benitez Qrdkqu6129 [facility] [id number] Information: SRC: GFR/1.73 sq M.predicted among non-blacks CKD-EPI (S/P/Bld) [Vol rate/Area] 112 mL/min/1.73 Normal [facility]; [address] Work Phone: Comment on above: PATIENT WAS FASTINGP ERFORMED BY: [facility] LabsUnion County General HospitalWurkly6446 New UiTVWakeMed [facility] Hospital [id number] Information: SRC: Globulin (S) [Mass/Vol] 2.2 g/dL Normal 1.5 - 4.5 g/dL [facility]; [address] Work Phone: Comment on above: PATIENT WAS FASTINGP ERFORMED BY: [facility] MalibuIQWakeMed North Hospital [id number] Information: SRC: Glucose [Mass/Vol] 85 mg/dL Normal 65 - 99 mg/dL [facility]; [address] Work Phone: Comment on above: PATIENT WAS FASTINGP ERFORMED BY: [facility] Stemgent New UiTVWakeMed North Hospital [id number] Information: SRC: HCG.intact+Beta subunit Qn <1 Normal [facility]; [address] Work Phone: Comment on above: Female (Non- ) 0 - 5 (Postmenopausal) 0 - 8 . Female () Weeks of Gestation 3 6 - 71 4 10 - 750 5 217 - 1638 6 158 - 91448 7 9422 -504947 8 64933 -891973 9 67462 -646483 29560 -519730 12 03730 -834335 14 91626 - 95482 15 25561 - 92583 16 5305 - 17947 17 9229 - 10352 18 5936 - 68428Roche ECLIA methodology PATIENT WAS FASTINGP ERFORMED BY: [facility] Nzttpt9131 New UiTVWakeMed North Hospital [id number] Potassium [Moles/Vol] 4.7 mmol/L Normal 3.5 - 5.2 mmol/L [facility]; [address] Work Phone: Comment on above: PATIENT WAS FASTINGP ERFORMED BY: [facility] DevicesSouthPointe HospitalPqxfnp1813 [place] [id number] Information: SRC: Protein [Mass/Vol] 6.1 g/dL Normal 6.0 - 8.5 g/dL [facility]; [address] Work Phone: Comment on above: PATIENT WAS FASTINGP ERFORMED BY: BELLO Labconasir FletcherHimyam4085 [facility] [id number] Information: SRC: Sodium [Moles/Vol] 142 mmol/L Normal 134 - 144 mmol/L [facility]; [address] Work Phone: Comment on above: PATIENT WAS FASTINGP ERFORMED BY: BELLO [facility] Gratxp1507 [facility] [id number] Information: SRC: Triglyceride [Mass/Vol] 166 mg/dL Abnormal 0 - 149 mg/dL [facility]; [address] Work Phone: Comment on above: PATIENT WAS FASTINGP ERFORMED BY: BELLO [facility] Cuzzvb2326 [facility] [id number] TSH Qn 1.920 {uIU/mL} Normal 0.450 - 4.500 {uIU/mL} [facility]; [address] Work Phone: Comment on above: PATIENT WAS FASTINGP ERFORMED BY: BELLO Labconasir FletcherZyjddu1550 [facility] [id number] Urea nitrogen [Mass/Vol] 7 mg/dL Normal 6 - 20 mg/dL [facility]; [address] Work Phone: Comment on above: PATIENT WAS FASTINGP ERFORMED BY: BELLO [facility] [id number] [facility] [id number] Information: SRC: Urea nitrogen/Creatinine [Mass ratio] 11 mg/mg Normal 9 - 23 [facility]; [address] Work Phone: Comment on above: PATIENT WAS FASTINGP ERFORMED BY: BELLO [facility] Klsdcc6827 [facility] [id number] Information: SRC: Laboratory - Hematology and Cell countson 09-21-2021 Basophils (Bld) [#/Vol] 0.0 10*3/uL Normal 0.0 - 0.2 {x10E3/uL} [facility]; [address] Work Phone: Comment on above: PATIENT WAS FASTINGP ERFORMED BY: Marinelayer70 True Link FinancialWakeMed [facility] Hospital [id number] Information: SRC: Basophils/100 WBC (Bld) 0 % Normal [facility]; [address] Work Phone: Comment on above: PATIENT WAS FASTINGP ERFORMED BY: Proxible MalibuIQWakeMed North Hospital [id number] Information: SRC: Eosinophils (Bld) [#/Vol] 0.2 10*3/uL Normal 0.0 - 0.4 {x10E3/uL} [facility]; [address] Work Phone: Comment on above: PATIENT WAS FASTINGP ERFORMED BY: InstantQuestWakeMed North Hospital [id number] Information: SRC: Eosinophils/100 WBC (Bld) 3 % Normal [facility]; [address] Work Phone: Comment on above: PATIENT WAS FASTINGP ERFORMED BY: InstantQuestWakeMed North Hospital [id number] Information: SRC: Erythrocyte distribution width (RBC) [Ratio] 11.8 % Normal 11.7 - 15.4 % [facility]; [address] Work Phone: Comment on above: PATIENT WAS FASTINGP ERFORMED BY: Proxible Fitlci6772 True Link FinancialWakeMed North Hospital [id number] Information: SRC: HbA1c (Bld) [Mass fraction] 5.5 % Normal 4.8 - 5.6 % [facility]; [address] Work Phone: Comment on above: . Prediabetes: 5.7 - 6.4 Diabetes: >6.4 Glycemic control for adults with diabetes: <7.0 PATIENT WAS FASTINGP ERFORMED BY: BELLO [place] 1689370 [facility] [id number] Information: SRC: Hematocrit (Bld) [Volume fraction] 38.9 % Normal 34.0 - 46.6 % [facility]; [address] Work Phone: Comment on above: PATIENT WAS FASTINGP ERFORMED BY: [address] [id number] Information: SRC: Hemoglobin (Bld) [Mass/Vol] 13.3 g/dL Normal 11.1 - 15.9 g/dL [facility]; [address] Work Phone: Comment on above: PATIENT WAS FASTINGP ERFORMED BY: BELLO [place] 1689370 [facility] [id number] Information: SRC: Immature granulocytes (Bld) [#/Vol] 0.0 10*3/uL Normal 0.0 - 0.1 {x10E3/uL} [facility]; [address] Work Phone: Comment on above: PATIENT WAS FASTINGP ERFORMED BY: BELLO [place] 1689370 [facility] [id number] Information: SRC: Immature granulocytes/100 WBC (Bld) 0 % Normal [facility]; [address] Work Phone: Comment on above: PATIENT WAS FASTINGP ERFORMED BY: [place] [id number] [facility] [id number] Information: SRC: Lymphocytes (Bld) [#/Vol] 2.6 10*3/uL Normal 0.7 - 3.1 {x10E3/uL} [facility]; [address] Work Phone: Comment on above: PATIENT WAS FASTINGP ERFORMED BY: BELLO [place] 1689370 [facility] [id number] Information: SRC: Lymphocytes/100 WBC (Bld) 31 % Normal [facility]; [address] Work Phone: Comment on above: PATIENT WAS FASTINGP ERFORMED BY: [place] [id number] [facility] [id number] Information: SRC: MCH (RBC) [Entitic mass] 32.5 pg Normal 26.6 - 33.0 pg [facility]; [address] Work Phone: Comment on above: PATIENT WAS FASTINGP ERFORMED BY: Lab[address] [facility], [facility] [id number] Information: SRC: MCHC (RBC) [Mass/Vol] 34.2 g/dL Normal 31.5 - 35.7 g/dL [facility]; [address] Work Phone: Comment on above: PATIENT WAS FASTINGP ERFORMED BY: [address] [facility] [id number] Information: SRC: MCV (RBC) [Entitic vol] 95 fL Normal 79 - 97 fL [facility]; [address] Work Phone: Comment on above: PATIENT WAS FASTINGP ERFORMED BY: [place] [id number] [facility] [id number] Information: SRC: Monocytes (Bld) [#/Vol] 0.6 10*3/uL Normal 0.1 - 0.9 {x10E3/uL} [facility]; [address] Work Phone: Comment on above: PATIENT WAS FASTINGP ERFORMED BY: [place] [id number] [facility] [id number] Information: SRC: Monocytes/100 WBC (Bld) 6 % Normal [facility]; [address] Work Phone: Comment on above: PATIENT WAS FASTINGP ERFORMED BY: [place] 2730570 [place] [facility], [facility] [id number] Information: SRC: Neutrophils (Bld) [#/Vol] 5.1 10*3/uL Normal 1.4 - 7.0 {x10E3/uL} [facility]; [address] Work Phone: Comment on above: PATIENT WAS FASTINGP ERFORMED BY: [facility] Aspzkb5685 [facility] [id number] Information: SRC: Neutrophils/100 WBC (Bld) 60 % Normal [facility]; [address] Work Phone: Comment on above: PATIENT WAS FASTINGP ERFORMED BY: [facility]hed[facility] Cxqrdl1413 [facility] [id number] Information: SRC: Platelets (Bld) [#/Vol] 274 10*3/uL Normal 150 - 450 {x10E3/uL} [facility]; [address] Work Phone: Comment on above: PATIENT WAS FASTINGP ERFORMED BY: [address] [id number] Information: SRC: RBC (Bld) [#/Vol] 4.09 10*6/uL Normal 3.77 - 5.2 8 {x10E6/uL} [facility]; [address] Work Phone: Comment on above: PATIENT WAS FASTINGP ERFORMED BY: [facility] Qadedv6367 [facility] [id number] Information: SRC: WBC (Bld) [#/Vol] 8.6 10*3/uL Normal 3.4 - 10.8 {x10E3/uL} [facility]; [address] Work Phone: Comment on above: PATIENT WAS FASTINGP ERFORMED BY: [place] [id number] [facility] [id number] Information: SRC: Laboratory - Microbiology an d Antimicrobial susceptibilityon 09-21-2021 C. trachomatis rRNA ANA+probe Ql (Unsp spec) Negative Normal [facility]; [address] Work Phone: Comment on above: PERFORMED BY: = [employer] [address] [id number] Information: SRC:UR HCV IgG IA Ql <0.1 Normal 0.0 - 0.9 {s/co_ratio} [facility]; [address] Work Phone: Comment on above: PATIENT WAS FASTINGP ERFORMED BY: Nanoferencelin6370 [facility] [id number] HIV 1+2 Ab+HIV1 p24 Ag IA Ql Non-Reactive Normal [facility]; [address] Work Phone: Comment on above: HIV NegativeHIV-1/HI V-2 antibodies and HIV-1 p24 antigen were NOT detected.There is no laboratory evidence of HIV infection. PATIENT WAS FASTINGP ERFORMED BY: [employer]ics6370 [facility] [id number] N. gonorrhoeae rRNA ANA+probe Ql (Unsp spec) Negative Normal [facility]; [address] Work Phone: Comment on above: PERFORMED BY: =Banno[address] [id number] Information: SRC:UR T. vaginalis rRNA ANA+probe Ql (Unsp spec) Negative Normal [facility]; [address] Work Phone: Comment on above: PERFORMED BY: =Banno[address] [id number] Information: SRC:UR ED Pat Eduon 02-12-2021 ED Pat [address] [id number] Emergency Department Discharge Instructions LOW MARKHAM , Please provide this information to your Primary Care/Specialist Name : LOW MARKHAM Current Date : 02/11/2021 23:40:48 : 1980 Primary Care Physician : Dilip Christensen MD Diagnosis: Follow-Up Instructions: LOW MARKHAM has been given these follow-up instructions: FOLLOW-UP APPOINTMENTS: Provider: Specialty: Address: Date: Dilip Christensen MD Family [facility] [address] [address] (2) 1 to 2 days Comment: Call for an Appointment Laboratory Orders: Name: Status: CBC with Differential Completed Basic Metabolic Panel Completed Urinalysis with Microscopic Automatic Completed HCG Quantitative Completed Hepatic Function Panel Completed Lipase Completed Magnesium Level Completed Troponin I High Sensitivity Completed GFRaa Completed GFRbb Completed Urinalysis Microscopic Completed Radiology Orders: None Ordered Diagnostic Tests: Name: Status: ECG 12 Lead Completed Procedure(s) and Patient Education(s) : Gastritis, Adult EMERGENCY SERVICES MEDICATION LIST Lista de Medicaciones de los Servicios de Emergencia Name LOW MARKHAM [facility]N [facility]-[id number] PLEASE READ THE FOLLOWING REGARDING YOUR MEDICATIONS Based on the information available during your visit we have given you the medication instructions below. Continue taking medications you took prior to your visit unless you have been told to change. Please share this information with your own doctor. Carry a list of your medications with you in case of an emergency. Update it when medications are stopped, doses are changed, or new medications (including fuqz-mek-mhmmgft products) are added. If you have any questions, check with your doctor. Por la informaci??n disponible jenn moise visita, las instrucciones de medicaci??n aparecen debajo. Favor de continuar tomando las medicaciones Ud. kumar?? antes de moise visita por lo menos que hay cambios. Favor de compartir esta informaci??n con moise medico. Lleva laurent lista de medicaciones consigo por laura de emergenc??a. Actualiza la lista cuando Ud. maryann de jovanna las medicaciones, si cambian las dosis, o si hay nuevas medicaciones a??adidas (incluyendo medicaciones vendidas sin prescripci??n). Favor de preguntar a moise medico por cualquier kay. THESE ARE THE MEDICATIONS YOU SHOULD BE TAKING cyclobenzaprine (Flexeril 10 mg oral tablet) 1 Tab(s) By Mouth As Needed as needed for 30 Days. gabapentin (gabapentin 300 mg oral capsule) 1 Capsule By Mouth 3 Times a day. hydroCHLOROthiazide (hydroCHLOROthiazide 12.5 mg oral tablet) 1 Tab(s) By Mouth once a day for 7 Days. Refills: 0. lisinopril By Mouth once a day. meloxicam 15 Milligram By Mouth once a day. naproxen (Naprosyn 500 mg oral tablet) 1 Tab(s) By Mouth Twice a day as needed for pain. Refills: 0. Diagnosis: Acute bilateral low back pain [M54.5] ondansetron (Zofran 4 mg oral tablet) 1 Tab(s) By Mouth 3 Times a day as needed Nausea and Vomitting for 5 Days. Refills: 0. ondansetron (Zofran ODT 4 mg oral tablet, disintegrating) 1 Tab(s) By Mouth 3 Times a day as needed Nausea and Vomitting for 3 Days. Refills: 0. triamterene By Mouth Twice a day. MEDICATIONS GIVEN DURING MEDICAL VISIT Sodium Chloride 0.9% 1,000 mL last dose given on 02/11/2021 at 21:04 Route: Intravenous Bolus, Infuse over 60 mins ondansetron 4 mg last dose given on 02/11/2021 at 21:08 Route: IV Push Administer over 2 minutes (for IV Push) lidocaine topical 10 mL last dose given on 02/11/2021 at 22:22 Route: By Mouth Al hydroxide/Mg hydroxide/simethicone 30 mL last dose given on 02/11/2021 at 22:30 Route: By Mouth SHAKE WELL NON-MEDICATION PRESCRIPTION SCHEDULING PHONE NUMBER: MEDICATION CHANGE DETAILS (Not your Final Home Medication List) During the course of your visit, your home medication list was updated with the most current information. The details of those changes are shown below: NEW MEDICATIONS None UPDATED MEDICATIONS None UNCHANGED MEDICATIONS Other Medications cyclobenzaprine (Flexeril 10 mg oral tablet) 1 Tab(s) By Mouth As Needed as needed for 30 Days. Comment ____ gabapentin (gabapentin 300 mg oral capsule) 1 Capsule By Mouth 3 Times a day. Comment ____ hydroCHLOROthiazide (hydroCHLOROthiazide 12.5 mg oral tablet) 1 Tab(s) By Mouth once a day for 7 Days. Refills: 0. Comment ____ lisinopril By Mouth once a day. Comment ____ meloxicam 15 Milligram By Mouth once a day. Comment ____ naproxen (Naprosyn 500 mg oral tablet) 1 Tab(s) By Mouth Twice a day as needed for pain. Refills: 0. Comment ____ ondan (more content not included)... Normal [facility] Basic metabolic 2000 panelon 02-11-2021 Anion gap [Moles/Vol] 11.0 mmol/L Normal 6.0-18.0 [facility] Comment on above: Performed By: #### 5 7020-0, 89015-1 #### [facility] Calcium [Mass/Vol] 9.1 mg/dL Normal 8.9-10.3 [facility] Comment on above: Performed By: #### 5 7020-0, 84255-9 #### [facility] Chloride [Moles/Vol] 104 mmol/L Normal 98-107 [facility] Comment on above: Performed By: #### 5 7020-0, 18739-9 #### [place] [facility] CO2 [Moles/Vol] 25 mmol/L Normal 22-32 [facility] Comment on above: Performed By: #### 5 7020-0, 87538-8 #### [facility] Creatinine [Mass/Vol] 0.67 mg/dL Normal 0.60-1.30 [facility] Comment on above: Performed By: #### 5 7020-0, 54533-0 #### [facility] Glucose [Mass/Vol] 96 mg/dL Normal 70-99 [facility] Comment on above: Result Comment: U pdated ADA Reference Range A normal fasting glucose concentration is less than 100 mg/dL. An impaired fasting glucose concentration is 100-125 mg/dL. A provisional diagnosis of diabetes mellitus can be made when a fasting glucose concentration is greater than 125 mg/dL. Performed By: #### 5 7020-0, 11106-7 #### [facility] Potassium [Moles/Vol] 3.7 mmol/L Normal 3.6-5.1 [facility] Comment on above: Performed By: #### 5 7020-0, 82935-0 #### [facility] Sodium [Moles/Vol] 140 mmol/L Normal 136-145 [facility] Comment on above: Performed By: #### 5 7020-0, 15850-9 #### [facility] Urea nitrogen (BldV) [Mass/Vol] 13 mg/dL Normal 8-20 [facility] Comment on above: Performed By: #### 5 7020-0, 01597-5 #### ONEL L[facility] CBC W Auto Differential pane l (Bld)on 02-11-2021 Basophils (Bld) [#/Vol] 0.10 thou/mcL Normal 0.00-0.20 [facility] Comment on above: Performed By: #### 5 7021-8 #### [facility] [address], [place] Basophils/100 WBC (Bld) 0.4 % Normal 0.0-2.0 [facility] Comment on above: Performed By: #### 5 7021-8 #### [facility] [address] [place], [place] Eosinophils (Bld) [#/Vol] 0.20 thou/mcL Normal 0.00-0.70 [facility] Comment on above: Performed By: #### 5 7021-8 #### [facility] [address] [place], [place] Eosinophils/100 WBC (Bld) 1.8 % Normal 0.0-7.0 [facility] Comment on above: Performed By: #### 5 7021-8 #### [facility] [address] [place], [place] Erythrocyte distribution width (RBC) [Entitic vol] 13.1 % Normal 11.0-14.8 [facility] Comment on above: Performed By: #### 5 7021-8 #### [facility] [address] [place], [place] Hematocrit (Bld) [Volume fraction] 44.0 % Normal 35.0-45.0 [facility] Comment on above: Performed By: #### 5 7021-8 #### [address] [place], [place] Hemoglobin (Bld) [Mass/Vol] 15.1 g/dL Normal 12.0-16.0 [facility] Comment on above: Performed By: #### 5 7021-8 #### [facility] [address] [place] [address] Lymphocytes (Bld) [#/Vol] 2.20 thou/mcL Normal 1.00-4.80 [facility] Comment on above: Performed By: #### 5 7021-8 #### [facility] [address] [place], [place] Lymphocytes/100 WBC (Bld) 17.1 % Low 22.0-44.0 [facility] Comment on above: Performed By: #### 5 7021-8 #### [facility] [address] [place], [place] MCH (RBC) [Entitic mass] 33.2 Picograms Normal 27.0-34.0 [facility] Comment on above: Performed By: #### 5 7021-8 #### [facility] [address] [place], [place] MCHC (RBC) [Mass/Vol] 34.3 g/dL Normal 32.0-36.0 [facility] Comment on above: Performed By: #### 5 7021-8 #### [facility] [address] [place], [place] MCV (RBC) [Entitic vol] 96.7 fL Normal 80.0-97.0 [facility] Comment on above: Performed By: #### 5 7021-8 #### [facility] [address] [place], [place] Monocytes (Bld) [#/Vol] 0.90 thou/mcL Normal 0.00-0.90 [facility] Comment on above: Performed By: #### 7021-8 #### [address]LD[address] Monocytes/100 WBC (Bld) 7.3 % Normal 0.0-12.0 [facility] Comment on above: Performed By: #### 7021-8 #### [facility] Neutrophils (Bld) [#/Vol] 9.30 thou/mcL High 1.80-7.70 [facility] Comment on above: Performed By: #### 7021-8 #### [address] Neutrophils/100 WBC (Bld) 73.4 % High 40.0-70.0 [facility] Comment on above: Performed By: #### 5 7021-8 #### [facility] [address] [place] [address] Platelet mean volume (Bld) [Entitic vol] 8.7 fL Normal 6.2-12.1 [facility] Comment on above: Performed By: #### 5 7021-8 #### [facility] [address] [place], [place] Platelets (Bld) [#/Vol] 270 thou/mcL Normal 142-424 [facility] Comment on above: Performed By: #### 5 7021-8 #### [facility] RBC (Bld) [#/Vol] 4.55 million/mcL Normal 3.80-5.10 [facility] Comment on above: Performed By: #### 5 7021-8 #### [facility] [address] [place], [place] WBC (Bld) [#/Vol] 12.7 thou/mcL High 4.6-10.2 [facility] Comment on above: Performed By: #### 5 7021-8 #### [facility] [address] [place], [place] GFR/1.73 sq M.predicted (S/P /Bld) [Vol rate/Area]on 02-11-2021 GFR/1.73 sq M.predicted among blacks MDRD (S/P/Bld) [Vol rate/Area] mL/min/{1.73_m2} Normal [facility] Comment on above: Result Comment: The MDRD equation has not been validated for those over 70 years, women, patients with serious co-morbid conditions, or with extremes of body size, muscle mass of nutritional status. Performed By: #### 1 9123-9, 30927-7, 76540-8, CD:[id number], 07558-7, 3040-3, 61437-5m9, 11372-6 #### [facility] [address] [place], [place] GFRbbon 02-11-2021 GFR/1.73 sq M.predicted among non-blacks MDRD (S/P/Bld) [Vol rate/Area] mL/min/{1.73_m2} Normal [facility] Comment on above: Performed By: #### 5 7020-0, 45427-8 #### [facility] HCG.beta subunit Qnon 2020 HCG Qn m[IU]/mL Normal [facility] Comment on above: Result Comment: Preg jone Reference Ranges Negative = < 5 mIU/ml Positive = > OR EQUAL TO 5 mIU/ml The concentration of HCG rises rapidly during early . A maximum level of 5,000 to 200,000 mIU/ML is reached at 6-8 weeks. This is followed by a slow decline to levels of 1,000 to 50,000 mIU/ML during the third trimester. This test should be used only for the diagnosis and monitoring of . It should not be used for monitoring of neoplastic conditions including gestational trophoblastic disease(partial mole, complete hydatidiform mole, choriocarcinoma) or other tumors. For monitoring of neoplastic disease a Beta subunit HCG test should be ordered. Results obtained using different immunoassay methods are not interchangeable. Patient results should not be trended using values obtained with a different immunoassay method. Performed By: #### 5 7020-0, 14886-9 #### [facility] Hepatic function 2000 panelo n 02-11-2021 Albumin [Mass/Vol] 4.2 g/dL Normal 3.5-4.8 [facility] Comment on above: Performed By: #### 5 7020-0, 22811-5 #### [facility] ALP [Catalytic activity/Vol] 74 Units/L Normal 32-91 [facility] Comment on above: Performed By: ###Steph Michaud 7020-0, 91934-9 #### [facility] ALT [Catalytic activity/Vol] 17 Units/L Normal 7-52 [facility] Comment on above: Result Comment: Ray hernandez note: Change in reference range for ALT occurred on 07/07/20 at [facility] [place], [facility] [place], and [facility]. Performed By: #### 5 7020-0, 69257-7 #### [facility] AST [Catalytic activity/Vol] 17 Units/L Normal 15-41 [facility] Comment on above: Performed By: #### 5 7020-0, 99878-1 #### [facility] Bilirubin [Mass/Vol] 0.9 mg/dL Normal 0.3-1.2 [facility] Comment on above: Performed By: ###Steph 5 7020-0, 45600-5 #### [facility] Bilirubin.direct [Mass/Vol] 0.2 mg/dL Normal 0.1-0.5 [facility] Comment on above: Performed By: ###Steph 5 7020-0, 86528-5 #### [facility] Bilirubin.indirect [Mass/Vol] 0.7 mg/dL Normal 0.0-1.0 [facility] Comment on above: Performed By: #### 5 70-0, 84922-9 #### [facility] Protein [Mass/Vol] 7.2 g/dL Normal 6.1-7.9 [facility] Comment on above: Performed By: #### 5 70-0, 87592-3 #### [facility] Lipaseon 02-11-2021 Lipase [Catalytic activity/Vol] 16 Units/L Normal 11-82 [facility] Comment on above: Result Comment: Ray hernandez note: Change in reference range for LIP occurred on 07/07/20 at [facility] [place], [facility] [place], and [facility]. Performed By: #### 5 70-0, 27844-8 #### [facility] Magnesium Levelon 02-11-2021 Magnesium [Mass/Vol] 1.9 mg/dL Normal 1.8-2.5 [facility] Comment on above: Performed By: #### Keily 70-0, 56245-2 #### [facility] Microscopic method Nom (U)on 02-11-2021 Epithelial cells.squamous LM.HPF (Urine sed) [#/Area] FEW Normal FEW/LPF [facility] Comment on above: Performed By: #### 5 70-0, 26389-7 #### [facility] Mucus Ql (Urine sed) MANY Abnormal NONE/LPF [facility] Comment on above: Performed By: #### 5 70-0, 52103-2 ####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 (U) Negative Negative [facility] Interpretation and review of laboratory results Normal [facility] XR ANKLE RIGHT 3+ VIEWS (STA NDARD)on 02-19-2019 1. No acute osseous abnormality involving the right ankle. Workstation ID: [id number] [facility] EXAMINATION: 3 XRAY VIEWS OF THE RIGHT ANKLE 02/19/2019 10:08 am COMPARISON: None. HISTORY: ORDERING SYSTEM PROVIDED HISTORY: pain; TECHNOLOGIST PROVIDED HISTORY: Illness/Other Acuity: Acute Reason for Exam: pain Cancer History: n Surgery, Radiation History: n Type of Encounter: Initial Additional signs and symptoms: no known injury FINDINGS: The bone mineralization is within normal limits. The ankle mortise is stable. No acute fractures or dislocations are seen. There is no soft tissue swelling. There is a small calcaneal spur at the insertion site of the Achilles tendon. [facility] Interface, Rad In ji Speechq - 02/19/2019 10:30 AM EDT EXAMINATION: 3 XRAY VIEWS OF THE RIGHT ANKLE 02/19/2019 10:08 am COMPARISON: None. HISTORY: ORDERING SYSTEM PROVIDED HISTORY: pain; TECHNOLOGIST PROVIDED HISTORY: Illness/Other Acuity: Acute Reason for Exam: pain Cancer History: n Surgery, Radiation History: n Type of Encounter: Initial Additional signs and symptoms: no known injury FINDINGS: The bone mineralization is within normal limits. The ankle mortise is stable. No acute fractures or dislocations are seen. There is no soft tissue swelling. There is a small calcaneal spur at the insertion site of the Achilles tendon. IMPRESSION: 1. No acute osseous abnormality involving the right ankle. Workstation ID: [id number] [facility] POC , Urineon 01-15 Beta HCG ( test) Ql (U) Dilute urine specimens, as indicated by a low specific gravity (<1.010) may not contain jewelry sales representative levels of hCG. If is still suspected, a serum test or repeat urine test using a first morning urine specimen should be considered. [facility] HCG ( test) Ql (U) Negative Negative [facility] Interpretation and review of laboratory results Normal [facility] XR Shoulder Right 2+ Views ( Standard)on 01-15-2019 No acute abnormality . Workstation ID: [id number] [facility] EXAMINATION: 3 XRAY VIEWS OF THE RIGHT SHOULDER 01/15/2019 7:37 pm COMPARISON: None. HISTORY: ORDERING SYSTEM PROVIDED HISTORY: eval of pain after heavy lifting, throwing at work.; TECHNOLOGIST PROVIDED HISTORY: Reason for Exam: right shoulder pain Illness/Other Acuity: Acute Cancer History: n Surgery, Radiation History: n Type of Encounter: Initial Additional signs and symptoms: n FINDINGS: Glenohumeral joint is normally aligned. No evidence of acute fracture or dislocation. No abnormal periarticular calcifications. Moderate acromioclavicular degenerative changes. Visualized lung is unremarkable. [facility] Interface, [facility] In Fu ji Speechq - 01/15/2019 7:45 PM EDT EXAMINATION: 3 XRAY VIEWS OF THE RIGHT SHOULDER 01/15/2019 7:37 pm COMPARISON: None. HISTORY: ORDERING SYSTEM PROVIDED HISTORY: eval of pain after heavy lifting, throwing at work.; TECHNOLOGIST PROVIDED HISTORY: Reason for Exam: right shoulder pain Illness/Other Acuity: Acute Cancer History: n Surgery, Radiation History: n Type of Encounter: Initial Additional signs and symptoms: n FINDINGS: Glenohumeral joint is normally aligned. No evidence of acute fracture or dislocation. No abnormal periarticular calcifications. Moderate acromioclavicular degenerative changes. Visualized lung is unremarkable. IMPRESSION: No acute abnormality. Workstation ID: [id number] [facility] Laboratory - Chemistry and C hemistry - challengeon 12-17-2018 Albumin [Mass/Vol] 4.8 g/dL Normal 3.5 - 5.5 g/dL [facility]; [facility] Work Phone: Comment on above: PATIENT WAS FASTINGP ERFORMED BY: [employer] [facility] Bgsjyw8120 [address] RoadDublin [place] [id number] Albumin/Globulin [Mass ratio] 1.8 {ratio} Normal 1.2 - 2.2 [facility]; [address] Work Phone: Comment on above: PATIENT WAS FASTINGP ERFORMED BY: [employer] LabHelmedix[facility] Dzoueg0428 New RoadDublin [place] [id number] ALP [Catalytic activity/Vol] 88 U/L Normal 39 - 117 [iU]/L [facility]; [facility] Work Phone: Comment on above: PATIENT WAS FASTINGP ERFORMED BY: [employer] LabHelmedixrp Sojine6042 New RoadDublin [place] [id number] ALT [Catalytic activity/Vol] 12 U/L Normal 0 - 32 [iU]/L [facility]; [facility] Work Phone: Comment on above: PATIENT WAS FASTINGP ERFORMED BY: [employer] LabHelmedixrp Qeoyhr2473 [address] RoadDublin [place] [id number] AST [Catalytic activity/Vol] 18 U/L Normal 0 - 40 [iU]/L [facility]; [facility] Work Phone: Comment on above: PATIENT WAS FASTINGP ERFORMED BY: [employer] [facility] Qavswm7216 [address] RoadDublin [place] [id number] Bilirubin [Mass/Vol] 0.5 mg/dL Normal 0.0 - 1 .2 mg/dL [facility]; [address] Work Phone: Comment on above: PATIENT WAS FASTINGP ERFORMED BY: BELLO [facility] Txfzrg4882 [address] RoadDublin [place] [id number] Calcium [Mass/Vol] 10.4 mg/dL Abnormal 8.7 - 10. 2 mg/dL [facility]; [address] Work Phone: Comment on above: PATIENT WAS FASTINGP ERFORMED BY: CB [facility] Xtkper4974 [address] RoadDublin [place] [id number] Chloride [Moles/Vol] 103 mmol/L Normal 96 - 10 6 mmol/L [facility]; [address] Work Phone: Comment on above: PATIENT WAS FASTINGP ERFORMED BY: BELLO [facility] Hkhvng3782 New RoadDublin [place] [id number] Cholesterol [Mass/Vol] 212 mg/dL Abnormal 100 - 199 mg/dL [facility]; [address] Work Phone: Comment on above: PATIENT WAS FASTINGP ERFORMED BY: BELLO [facility] Ztrcyu2853 [address] RoadDublin [place] [id number] Cholesterol in HDL [Mass/Vol] 39 mg/dL Abnormal [facility]; [address] Work Phone: Comment on above: PATIENT WAS FASTINGP ERFORMED BY: BELLO [facility] Hkflrl2123 [address] RoadDublin [place] [id number] Cholesterol in LDL [Mass/Vol] 138 mg/dL Abnormal 0 - 99 mg/dL [facility]; [address] Work Phone: Comment on above: PATIENT WAS FASTINGP ERFORMED BY: CB [facility] Fbdoqi1301 [address] RoadDublin [place] [id number] Cholesterol in VLDL [Mass/Vol] 35 mg/dL Normal 5 - 40 mg/dL [facility]; [address] Work Phone: Comment on above: PATIENT WAS FASTINGP ERFORMED BY: CB [facility] Iuhfpl8934 [address] RoadDublin [place] [id number] CO2 [Moles/Vol] 21 mmol/L Normal 20 - 29 mmol/L [facility]; [address] Work Phone: Comment on above: PATIENT WAS FASTINGP ERFORMED BY: [facility]Hel[facility] Lpmhib6474 [facility] [id number] Creatinine [Mass/Vol] 0.86 mg/dL Normal 0.57 - 1.00 mg/dL [facility]; [address] Work Phone: Comment on above: PATIENT WAS FASTINGP ERFORMED BY: [facility] Qjcuix5828 [facility] [id number] GFR/1.73 sq M.predicted among blacks CKD-EPI (S/P/Bld) [Vol rate/Area] 101 mL/min/1.73 Normal [facility]; [address] Work Phone: Comment on above: PATIENT WAS FASTINGP ERFORMED BY: Magazino Ybtmjk4654 [facility] [id number] GFR/1.73 sq M.predicted among non-blacks CKD-EPI (S/P/Bld) [Vol rate/Area] 87 mL/min/1.73 Normal [facility]; [address] Work Phone: Comment on above: PATIENT WAS FASTINGP ERFORMED BY: [facility] Bmhmqg3023 New [facility] [id number] Globulin (S) [Mass/Vol] 2.7 g/dL Normal 1.5 - 4.5 g/dL [facility]; [address] Work Phone: Comment on above: PATIENT WAS FASTINGP ERFORMED BY: [facility] Dnyiju1375 [address] WhisperAt[facility] Healthin [place] [id number] Glucose [Mass/Vol] 91 mg/dL Normal 65 - 99 mg/dL [facility]; [address] Work Phone: Comment on above: PATIENT WAS FASTINGP ERFORMED BY: [facility] Brvmss0781 [facility], [facility] [id number] Potassium [Moles/Vol] 4.2 mmol/L Normal 3.5 - 5.2 mmol/L [facility]; [address] Work Phone: Comment on above: PATIENT WAS FASTINGP ERFORMED BY: BELLO [facility] Wrztan6062 [facility] [place] [id number] Protein [Mass/Vol] 7.5 g/dL Normal 6.0 - 8.5 g/dL [facility]; [address] Work Phone: Comment on above: PATIENT WAS FASTINGP ERFORMED BY: BELLO [facility] Zsthmq2732 [facility] [place] [id number] Sodium [Moles/Vol] 143 mmol/L Normal 134 - 144 mmol/L [facility]; [address] Work Phone: Comment on above: PATIENT WAS FASTINGP ERFORMED BY: BELLO [facility] Kpsodk2753 [facility] [place] [id number] Triglyceride [Mass/Vol] 176 mg/dL Abnormal 0 - 149 mg/dL [facility]; [address] Work Phone: Comment on above: PATIENT WAS FASTINGP ERFORMED BY: BELLO [facility] Xtlzqt5486 [facility]in [place] [id number] TSH Qn 1.970 {uIU/mL} Normal 0.450 - 4.500 {uIU/mL} [facility]; [address] [facility] Work Phone: Comment on above: PATIENT WAS FASTINGP ERFORMED BY: BELLO [facility] Rieprv5761 [facility] [place] [id number] Urea nitrogen [Mass/Vol] 12 mg/dL Normal 6 - 20 mg/dL [facility]; [address] Work Phone: Comment on above: PATIENT WAS FASTINGP ERFORMED BY: [facility] Evqgml5030 [facility] [place] [id number] Urea nitrogen/Creatinine [Mass ratio] 14 mg/mg Normal 9 - 23 [facility]; [address] Work Phone: Comment on above: PATIENT WAS FASTINGP ERFORMED BY: [place] [id number] [facility] [id number] Laboratory - Hematology and Cell countson 12-17-2018 Basophils (Bld) [#/Vol] 0.0 10*3/uL Normal 0.0 - 0.2 {x10E3/uL} [facility]; [address] Work Phone: Comment on above: PATIENT WAS FASTINGP ERFORMED BY: [address] [id number] Information: sst,lav Basophils/100 WBC (Bld) 0 % Normal [facility]; [address] Work Phone: Comment on above: PATIENT WAS FASTINGP ERFORMED BY: [address] [id number] Information: sst,lav Eosinophils (Bld) [#/Vol] 0.2 10*3/uL Normal 0.0 - 0.4 {x10E3/uL} [facility]; [address] Work Phone: Comment on above: PATIENT WAS FASTINGP ERFORMED BY: [address] [id number] Information: sst,lav Eosinophils/100 WBC (Bld) 2 % Normal [facility]; [address] Work Phone: Comment on above: PATIENT WAS FASTINGP ERFORMED BY: [address] [id number] Information: sst,lav Erythrocyte distribution width (RBC) [Ratio] 13.1 % Normal 12.3 - 15.4 % [facility]; [address] Work Phone: Comment on above: PATIENT WAS FASTINGP ERFORMED BY: [address] [id number] Information: sst,lav Hematocrit (Bld) [Volume fraction] 43.9 % Normal 34.0 - 46.6 % [facility]; [address] Work Phone: Comment on above: PATIENT WAS FASTINGP ERFORMED BY: LabRobert Ville [id number] [facility] [id number] Information: sst,lav Hemoglobin (Bld) [Mass/Vol] 15.3 g/dL Normal 11.1 - 15.9 g/dL [facility]; [facility] Work Phone: Comment on above: PATIENT WAS FASTINGP ERFORMED BY: Lab[address] [id number] Information: sst,lav Immature granulocytes (Bld) [#/Vol] 0.0 10*3/uL Normal 0.0 - 0.1 {x10E3/uL} [facility]; [facility] Work Phone: Comment on above: PATIENT WAS FASTINGP ERFORMED BY: [address] [id number] Information: sst,lav Immature granulocytes/100 WBC (Bld) 0 % Normal [facility]; [facility] Work Phone: Comment on above: PATIENT WAS FASTINGP ERFORMED BY: [address] [id number] Information: sst,lav Lymphocytes (Bld) [#/Vol] 3.4 10*3/uL Abnormal 0.7 - 3.1 {x10E3/uL} [facility]; [facility] Work Phone: Comment on above: PATIENT WAS FASTINGP ERFORMED BY: LabRobert V[place] 2634170 [facility] [id number] Information: sst,lav Lymphocytes/100 WBC (Bld) 33 % Normal [facility]; [facility] Work Phone: Comment on above: PATIENT WAS FASTINGP ERFORMED BY: LabRobert [place] 2634170 [facility] [id number] Information: sst,lav MCH (RBC) [Entitic mass] 33.0 pg Normal 26.6 - 33.0 pg [facility]; [address] Work Phone: Comment on above: PATIENT WAS FASTINGP ERFORMED BY: BELLO [facility] Iqxjjf[address] [id number] Information: sst,lav MCHC (RBC) [Mass/Vol] 34.9 g/dL Normal 31.5 - 35.7 g/dL [facility]; [address] Work Phone: Comment on above: PATIENT WAS FASTINGP ERFORMED BY: [address] [id number] Information: sst,lav MCV (RBC) [Entitic vol] 95 fL Normal 79 - 97 fL [facility]; [address] Work Phone: Comment on above: PATIENT WAS FASTINGP ERFORMED BY: [address] [id number] Information: sst,lav Monocytes (Bld) [#/Vol] 0.9 10*3/uL Normal 0.1 - 0.9 {x10E3/uL} [facility]; [address] Work Phone: Comment on above: PATIENT WAS FASTINGP ERFORMED BY: [place] [id number] [facility] [id number] Information: sst,lav Monocytes/100 WBC (Bld) 9 % Normal [facility]; [address] Work Phone: Comment on above: PATIENT WAS FASTINGP ERFORMED BY: [address] [id number] Information: sst,lav Neutrophils (Bld) [#/Vol] 5.7 10*3/uL Normal 1.4 - 7.0 {x10E3/uL} [facility]; [address] Work Phone: Comment on above: PATIENT WAS FASTINGP ERFORMED BY: [address] [id number] Information: sst,lav Neutrophils/100 WBC (Bld) 56 % Normal [facility]; [address] Work Phone: Comment on above: PATIENT WAS FASTINGP ERFORMED BY: [place] [id number] [facility] [id number] Information: sst,lav Platelets (Bld) [#/Vol] 352 10*3/uL Normal 150 - 379 {x10E3/uL} [facility]; [address] Work Phone: Comment on above: PATIENT WAS FASTINGP ERFORMED BY: [address] [id number] Information: sst,lav RBC (Bld) [#/Vol] 4.63 10*6/uL Normal 3.77 - 5.2 8 {x10E6/uL} [facility]; [address] Work Phone: Comment on above: PATIENT WAS FASTINGP ERFORMED BY: [place] [id number] [facility] [id number] Information: sst,lav WBC (Bld) [#/Vol] 10.2 10*3/uL Normal 3.4 - 10.8 {x10E3/uL} [facility]; [address] Work Phone: Comment on above: PATIENT WAS FASTINGP ERFORMED BY: [place] 4684770 [facility] [id number] Information: sst,lav CT LUMBAR SPINE WITHOUT CONT RASTon 06-29-2018 1. Circumferential disc bulge at level of L5/S1 and moderate left neural foraminal narrowing. 2. No fracture or dislocation. Workstation ID: [id number] Invalid Interpretation Code [email or web address] [facility] EXAMINATION: CT OF T HE LUMBAR SPINE WITHOUT CONTRAST 06/29/2018 TECHNIQUE: CT of the lumbar spine was performed without the administration of intravenous contrast. Multiplanar reformatted images are provided for review. Dose modulation, iterative reconstruction, and/or weight based adjustment of the mA/kV was utilized to reduce the radiation dose to as low as reasonably achievable. COMPARISON: None. HISTORY: ORDERING SYSTEM PROVIDED HISTORY: back pain; TECHNOLOGIST PROVIDED HISTORY: Reason for Exam: back pain Illness/Other Acuity: Chronic Type of Encounter: Initial Additional signs and symptoms: pain since epidural in 2001 FINDINGS: No evidence of fracture or dislocation of the lumbar spine. Vertebral body height and interspace appears be well maintained. There is circumferential disc bulge at level of L5/S1 resulting in mild effacement ventral thecal sac. There is moderate left neural foraminal narrowing at L5/S1. No evidence of lytic or blastic bone lesion. Invalid Interpretation Code [employer] [place] Interface, Rad In Fu ji Speechq - 06/29/2018 12:04 PM EST EXAMINATION: CT OF THE LUMBAR SPINE WITHOUT CONTRAST 06/29/2018 TECHNIQUE: CT of the lumbar spine was performed without the administration of intravenous contrast. Multiplanar reformatted images are provided for review. Dose modulation, iterative reconstruction, and/or weight based adjustment of the mA/kV was utilized to reduce the radiation dose to as low as reasonably achievable. COMPARISON: None. HISTORY: ORDERING SYSTEM PROVIDED HISTORY: back pain; TECHNOLOGIST PROVIDED HISTORY: Reason for Exam: back pain Illness/Other Acuity: Chronic Type of Encounter: Initial Additional signs and symptoms: pain since epidural in 2001 FINDINGS: No evidence of fracture or dislocation of the lumbar spine. Vertebral body height and interspace appears be well maintained. There is circumferential disc bulge at level of L5/S1 resulting in mild effacement ventral thecal sac. There is moderate left neural foraminal narrowing at L5/S1. No evidence of lytic or blastic bone lesion. IMPRESSION: 1. Circumferential disc bulge at level of L5/S1 and moderate left neural foraminal narrowing. 2. No fracture or dislocation. Workstation ID: [id number] Invalid Interpretation Code [employer] [place] POC Urine Pregnancyon 2017 HCG ( test) Ql (U) Negative Invalid Interpretation Code Negative [facility] Internal Control Pass Invalid Interpretation Code [facility] Interpretation and review of laboratory results Normal Invalid Interpretation Code [facility] Specific gravity Relative Density (U) Invalid Interpretation Code [facility] Laboratory - Chemistry and C hemistry - challengeon 01-21-2018 Bilirubin Ql (U) Negative Normal [facility]; [address] [facility] Work Phone: Ketones Ql (U) + / SMALL [facility]; [address] Work Phone: pH (U) 6 [pH] Normal [facility]; [address] Work Phone: Specific gravity (U) [Rel density] 1.030 Normal [facility]; [address] Work Phone: Laboratory - Hematology and Cell countson 01-21-2018 Hemoglobin Ql (U) ++ Abnormal [facility]; [address] [address] Work Phone: Laboratory - Urinalysison Glucose Test strip (U) [Mass/Vol] Negative Normal [facility]; [address] Work Phone: Leukocyte esterase Test strip Ql (U) +++ Abnormal [facility]; [address] Work Phone: Nitrite Ql (U) Negative Normal [facility]; [address] [address] Work Phone: Protein Ql (U) ++ Abnormal [facility]; [address] Work Phone: Laboratory - Chemistry and C hemistry - challengeon 06-19-2017 Albumin [Mass/Vol] 4.2 g/dL Normal 3.5 - 5.5 g/dL [facility]; [address] Work Phone: Comment on above: PATIENT NOT FASTINGP ERFORMED BY: BELLO [facility] [id number] Information: 2 lav sst ew Albumin/Globulin [Mass ratio] 1.8 {ratio} Normal 1.2 - 2.2 [facility]; [address] Work Phone: Comment on above: PATIENT NOT FASTINGP ERFORMED BY: BELLO Magazinonasir FletcherGnjzhk8286Oh My GlassesWakeMed North Hospital [id number] Information: 2 lav sst ew ALP [Catalytic activity/Vol] 72 U/L Normal 39 - 117 [iU]/L [facility]; [address] Work Phone: Comment on above: PATIENT NOT FASTINGP ERFORMED BY: BELLO [employer] Nthmlb7014Infinitin [place] [id number] Information: 2 lav sst ew ALT [Catalytic activity/Vol] 13 U/L Normal 0 - 32 [iU]/L [facility]; [address] Work Phone: Comment on above: PATIENT NOT FASTINGP ERFORMED BY: BELLO [facility] Izhvmo6668 [facility] [id number] Information: 2 lav sst ew AST [Catalytic activity/Vol] 17 U/L Normal 0 - 40 [iU]/L [facility]; [address] Work Phone: Comment on above: PATIENT NOT FASTINGP ERFORMED BY: BELLO [facility] Yadhnj1355 [facility] [id number] Information: 2 lav sst ew Bilirubin [Mass/Vol] 0.4 mg/dL Normal 0.0 - 1 .2 mg/dL [facility]; [address] Work Phone: Comment on above: PATIENT NOT FASTINGP ERFORMED BY: BELLO [facility] Scndvl1166 [facility] [id number] Information: 2 lav sst ew Calcium [Mass/Vol] 9.4 mg/dL Normal 8.7 - 10. 2 mg/dL [facility]; [address] Work Phone: Comment on above: PATIENT NOT FASTINGP ERFORMED BY: BELLO Benitez Ljgnak1301 [facility] [id number] Information: 2 lav sst ew Chloride [Moles/Vol] 102 mmol/L Normal 96 - 10 6 mmol/L [facility]; [address] Work Phone: Comment on above: PATIENT NOT FASTINGP ERFORMED BY: BELLO [facility] Xmypba2805 [facility] [id number] Information: 2 lav sst ew Cholesterol [Mass/Vol] 181 mg/dL Normal 100 - 199 mg/dL [facility]; [address] Work Phone: Comment on above: PATIENT NOT FASTINGP ERFORMED BY: BELLO Benitez Hlifnt1604 [address] RoadDublin [place] [id number] Cholesterol in HDL [Mass/Vol] 46 mg/dL Normal [facility]; [address] [facility] Work Phone: Comment on above: PATIENT NOT FASTINGP ERFORMED BY: BELLO [facility] Jnkmkq8093 [address] RoadDublin [place] [id number] Cholesterol in LDL [Mass/Vol] 110 mg/dL Abnormal 0 - 99 mg/dL [facility]; [address] [facility] Work Phone: Comment on above: PATIENT NOT FASTINGP ERFORMED BY: BELLO [facility] Pvxatc9622 [address] RoadDublin [place] [id number] Cholesterol in VLDL [Mass/Vol] 25 mg/dL Normal 5 - 40 mg/dL [facility]; [address] Work Phone: Comment on above: PATIENT NOT FASTINGP ERFORMED BY: BELLO [facility] Emqgav6066 [address] RoadDublin [place] [id number] CO2 [Moles/Vol] 22 mmol/L Normal 18 - 29 mmol/L [facility]; [address] Work Phone: Comment on above: PATIENT NOT FASTINGP ERFORMED BY: BELLO LabTere FletcherIvnbfu0228 New RoadDublin [place] [id number] Information: 2 lav sst ew Creatinine [Mass/Vol] 0.73 mg/dL Normal 0.57 - 1.00 mg/dL [facility]; [address] Work Phone: Comment on above: PATIENT NOT FASTINGP ERFORMED BY: BELLO [facility] Nhhhbu1890 [address] RoadDublin [place] [id number] Information: 2 lav sst ew GFR/1.73 sq M.predicted among blacks CKD-EPI (S/P/Bld) [Vol rate/Area] 124 mL/min/1.73 Normal [facility]; [address] Work Phone: Comment on above: PATIENT NOT FASTINGP ERFORMED BY: BELLO [facility] Vuuooc7499 [address] RoadDublin [place] [id number] Information: 2 lav sst ew GFR/1.73 sq M.predicted among non-blacks CKD-EPI (S/P/Bld) [Vol rate/Area] 108 mL/min/1.73 Normal [facility]; [address] [facility] Work Phone: Comment on above: PATIENT NOT FASTINGP ERFORMED BY: BELLO [facility] Pvuswf2116 [address] [facility], [facility] [id number] Information: 2 lav sst ew Globulin (S) [Mass/Vol] 2.3 g/dL Normal 1.5 - 4.5 g/dL [facility]; [address] Work Phone: Comment on above: PATIENT NOT FASTINGP ERFORMED BY: BELLO [facility] Jevife0522 [address] [facility], [facility] [id number] Information: 2 lav sst ew Glucose [Mass/Vol] 73 mg/dL Normal 65 - 99 mg/dL [facility]; [address] [facility] Work Phone: Comment on above: PATIENT NOT FASTINGP ERFORMED BY: BELLO Benitez Ahpaay2869 [address] [facility], [facility] [id number] Information: 2 lav sst ew Potassium [Moles/Vol] 4.3 mmol/L Normal 3.5 - 5.2 mmol/L [facility]; [address] Work Phone: Comment on above: PATIENT NOT FASTINGP ERFORMED BY: BELLO [facility] Tmusjh[address] Wh[facility]perNov[facility], [facility] [id number] Information: 2 lav sst ew Protein [Mass/Vol] 6.5 g/dL Normal 6.0 - 8.5 g/dL [facility]; [address] Work Phone: Comment on above: PATIENT NOT FASTINGP ERFORMED BY: BELLO LabMary Rpdjqs34[address] [id number] Information: 2 lav sst ew Sodium [Moles/Vol] 142 mmol/L Normal 134 - 144 mmol/L [facility]; [address] Work Phone: Comment on above: PATIENT NOT FASTINGP ERFORMED BY: CB [facility] Wuajxg1709 [facility] [id number] Information: 2 lav sst ew Triglyceride [Mass/Vol] 127 mg/dL Normal 0 - 149 mg/dL [facility]; [address] Work Phone: Comment on above: PATIENT NOT FASTINGP ERFORMED BY: CB [facility] Hiaqza0381 [facility] [id number] TSH Qn 3.160 {uIU/mL} Normal 0.450 - 4.500 {uIU/mL} [facility]; [address] Work Phone: Comment on above: PATIENT NOT FASTINGP ERFORMED BY: CB [facility] Eoetrr5171 [facility] [id number] Information: 2 lav sst ew Urea nitrogen [Mass/Vol] 10 mg/dL Normal 6 - 20 mg/dL [facility]; [address] Work Phone: Comment on above: PATIENT NOT FASTINGP ERFORMED BY: CB [facility] Iaiyag7839 [facility] [id number] Information: 2 lav sst ew Urea nitrogen/Creatinine [Mass ratio] 14 mg/mg Normal 9 - 23 [facility]; [address] Work Phone: Comment on above: PATIENT NOT FASTINGP ERFORMED BY: CB [facility] Jmzkqj1976 [facility] [id number] Information: 2 lav sst ew Laboratory - Hematology and Cell countson 06-19-2017 Erythrocyte distribution width (RBC) [Ratio] 13.0 % Normal 12.3 - 15.4 % [facility]; [address] Work Phone: Comment on above: PATIENT NOT FASTINGP ERFORMED BY: CB [facility] [id number] [facility] [id number] HbA1c (Bld) [Mass fraction] 5.4 % Normal 4.8 - 5.6 % [facility]; [address] Work Phone: Comment on above: . Pre-diabetes: 5.7 - 6.4 Diabetes: >6.4 Glycemic control for adults with diabetes: <7.0 PATIENT NOT FASTINGP ERFORMED BY: BELLO LabMary [id number] [facility] [id number] Hematocrit (Bld) [Volume fraction] 42.2 % Normal 34.0 - 46.6 % [facility]; [address] Work Phone: Comment on above: PATIENT NOT FASTINGP ERFORMED BY: BELLO LabRobert Ville [id number] [facility] [id number] Hemoglobin (Bld) [Mass/Vol] 13.9 g/dL Normal 11.1 - 15.9 g/dL [facility]; [address] Work Phone: Comment on above: PATIENT NOT FASTINGP ERFORMED BY: BELLO [place] [id number] [facility] [id number] MCH (RBC) [Entitic mass] 31.9 pg Normal 26.6 - 33.0 pg [facility]; [address] Work Phone: Comment on above: PATIENT NOT FASTINGP ERFORMED BY: [facility]O [facility] [id number] [facility] [id number] MCHC (RBC) [Mass/Vol] 32.9 g/dL Normal 31.5 - 35.7 g/dL [facility]; [address] Work Phone: Comment on above: PATIENT NOT FASTINGP ERFORMED BY: BELLO LabRobert Ville [id number] [facility] [id number] MCV (RBC) [Entitic vol] 97 fL Normal 79 - 97 fL [facility]; [address] Work Phone: Comment on above: PATIENT NOT FASTINGP ERFORMED BY: BELLO LabRobert Ville [id number] [facility] [id number] Platelets (Bld) [#/Vol] 341 10*3/uL Normal 150 - 379 {x10E3/uL} [facility]; [address] Work Phone: Comment on above: PATIENT NOT FASTINGP ERFORMED BY: [facility] [id number] [facility] [id number] RBC (Bld) [#/Vol] 4.36 10*6/uL Normal 3.77 - 5.2 8 {x10E6/uL} [facility]; [address] Work Phone: Comment on above: PATIENT NOT FASTINGP ERFORMED BY: [facility] [id number] [facility] [id number] WBC (Bld) [#/Vol] 11.5 10*3/uL Abnormal 3.4 - 10.8 {x10E3/uL} [facility]; [address] Work Phone: Comment on above: ADDENDA: monitor PATIENT NOT FASTINGP ERFORMED BY: [facility] [id number] [facility] [id number] Vital Signs Date Time Vital Sign Value Performing Clinician Facility 01-11-2024 10:51-0400 Body height 166.37 cm Patricia [facility]; [facility] 01-11-2024 10:51-0400 Body mass index (BMI) [Ratio] 36.38 kg/m2 Patricia Miranda [place] [facility]; [facility] 01-11-2024 10:51-0400 Body surface area Derived from formula 2.08 m2 Patricia KirbyKenzie JUAN F [facility]; [facility] 01-11-2024 10:51-0400 Body temperature 98.4 [degF] Patricia [facility] Comment on above: Method: Oral 01-11-2024 10:51-0400 Body weight 100.7 kg Patricia Miranda MA [facility]; [facility] 01-11-2024 10:51-0400 Diastolic blood pressure 100 mm[Hg] Patricia [facility]; [facility] Comment on above: Patient Position: Standing; Cuff Locatio n: Left Arm; Cuff Size: Standard 05-18-2024 10:51-0400 Heart rate 98 /min Patricia Miranda MA [facility]; [address] [facility] Comment on above: Pattern: Regular 01-11-2024 10:51-0400 Inhaled oxygen concentration 20 % Patricia Miranda [facility]; [address] [facility] Comment on above: Room air 01-11-2024 10:51-0400 Respiratory rate 16 /min Patricia Miranda [facility]; [address] [facility] Comment on above: Pattern: Unlabored 01-11-2024 10:51-0400 SaO2% (BldA) [Mass fraction] 98 % Patricia Miranda [facility]; [address] [facility] 01-11-2024 10:51-0400 Systolic blood pressure 160 mm[Hg] Patricia Miranda [facility]; [address] [facility] Comment on above: Patient Position: Standing; Cuff Locatio n: Left Arm; Cuff Size: Standard 09-17-2023 11:28-0500 Diastolic blood pressure 84 mm[Hg] Papito Hoffman MD Work Phone: [place] 09-17-2023 11:28-0500 Heart rate 91 /min Papito Hoffman MD Work Phone: [facility] 09-17-2023 11:28-0500 Respiratory rate 16 /min Papito Hoffman MD Work Phone: [facility] 09-17-2023 11:28-0500 SaO2% (BldA) [Mass fraction] 94 % Papito Hoffman MD Work Phone: [facility] 09-17-2023 11:28-0500 Systolic blood pressure 154 mm[Hg] Papito Hoffman MD Work Phone: [facility] 09-17-2023 10:53-0500 Body temperature 97.7 [degF] Papito Hoffman MD Work Phone: [facility] 09-17-2023 10:52-0500 Body height 165.1 cm Papito Hoffman MD Work Phone: [place] 09-17-2023 10:52-0500 Body mass index (BMI) [Ratio] 39.61 kg/m2 Papito Hoffman MD Work Phone: [facility] 09-17-2023 10:52-0500 Body weight 107.96 kg Papito Hoffman MD Work Phone: [facility] 06-18-2023 17:10-0400 Diastolic blood pressure 92 mm[Hg] Ye Dominguez PLANNER CHIEF Work Phone: [facility]; [facility] Comment on above: Patient Position: Sitting; Cuff Location : Left Arm; Cuff Size: Standard 06-18-2023 17:10-0400 Systolic blood pressure 162 mm[Hg] Ye Dominguez PLANNER CHIEF Work Phone: [facility]; [facility] Comment on above: Patient Position: Sitting; Cuff Location : Left Arm; Cuff Size: Standard 06-18-2023 16:36-0400 Body height 166.37 cm Mariel Torres MA [facility]; [facility] 06-18-2023 16:36-0400 Body mass index (BMI) [Ratio] 37.36 kg/m2 Mariel Torres MA [facility]; [facility] 06-18-2023 16:36-0400 Body surface area Derived from formula 2.1 m2 Mariel Torres MA [facility]; [facility] 06-18-2023 16:36-0400 Body temperature 98.7 [degF] Mariel Torres MA [facility]; [facility] Comment on above: Method: Thermal Scan 06-18-2023 16:36-0400 Body weight 103.42 kg [facility]; [facility] 06-18-2023 16:36-0400 Diastolic blood pressure 84 mm[Hg] Mariel Torres MA [facility]; [facility] Comment on above: Patient Position: Sitting; Cuff Location : Left Arm; Cuff Size: Standard 06-18-2023 16:36-0400 Heart rate 94 /min [facility]; [facility] Comment on above: Pattern: Regular 06-18-2023 16:36-0400 Inhaled oxygen concentration 20 % Mariel Torres MA [facility]; [facility] Comment on above: Room air 06-18-2023 16:36-0400 Respiratory rate 17 /min Mariel Torres MA [facility]; [facility] Comment on above: Pattern: Unlabored 06-18-2023 16:36-0400 SaO2% (BldA) [Mass fraction] 99 % Mariel Torres MA [facility]; [facility] 06-18-2023 16:36-0400 Systolic blood pressure 150 mm[Hg] Mariel Torres MA [facility]; [facility] Comment on above: Patient Position: Sitting; Cuff Location : Left Arm; Cuff Size: Standard 05-29-2023 16:36-0400 Diastolic blood pressure 90 mm[Hg] Consert Work Phone: [facility]; [facility] Comment on above: Patient Position: Sitting; Cuff Location : Left Arm; Cuff Size: Standard 05-29-2023 16:36-0400 Systolic blood pressure 168 mm[Hg] Consert Work Phone: [facility]; [facility] Comment on above: Patient Position: Sitting; Cuff Location : Left Arm; Cuff Size: Standard 05-29-2023 16:14-0400 Body height 166.37 cm Consert Work Phone: [facility]; [facility] 05-29-2023 16:14-0400 Body mass index (BMI) [Ratio] 38.35 kg/m2 Consert Work Phone: [facility]; [facility] 05-29-2023 16:14-0400 Body surface area Derived from formula 2.13 m2 Consert Work Phone: [facility]; [facility] 05-29-2023 16:14-0400 Body temperature 98.4 [degF] Consert Work Phone: [facility]; [facility] Comment on above: Method: Temporal 05-29-2023 16:14-0400 Body weight 106.14 kg Ye Dominguez PLANNER CHIEF Work Phone: [facility]; [facility] 05-29-2023 16:14-0400 Diastolic blood pressure 90 mm[Hg] Ye Dominguez PLANNER CHIEF Work Phone: [facility]; [facility] Comment on above: Patient Position: Sitting; Cuff Location : Left Arm; Cuff Size: Standard 05-29-2023 16:14-0400 Heart rate 94 /min Ye Dominguez PLANNER CHIEF Work Phone: [facility]; [facility] Comment on above: Pattern: Regular 05-29-2023 16:14-0400 Inhaled oxygen concentration 20 % Ye Dominguez PLANNER CHIEF Work Phone: [facility]; [facility] Comment on above: Room air 05-29-2023 16:14-0400 Respiratory rate 16 /min Ye Dominguez PLANNER CHIEF Work Phone: [facility]; [facility] Comment on above: Pattern: Unlabored 05-29-2023 16:14-0400 SaO2% (BldA) [Mass fraction] 98 % Ye Dominguez PLANNER CHIEF Work Phone: [facility]; [facility] 05-29-2023 16:14-0400 Systolic blood pressure 174 mm[Hg] Ye Dominguez PLANNER CHIEF Work Phone: [facility]; [facility] Comment on above: Patient Position: Sitting; Cuff Location : Left Arm; Cuff Size: Standard 05-28-2023 18:15-0400 Heart rate 86 /min Mary Sunmichaelerman DO Work Phone: [facility] [place] 05-28-2023 18:15-0400 Respiratory rate 17 /min Mary Sunmichaelerman DO Work Phone: [facility] [place] 05-28-2023 18:15-0400 SaO2% (BldA) [Mass fraction] 96 % Mary Dinomichaelerman DO Work Phone: [place] 05-28-2023 14:05-0400 Body height 165.1 cm Mary Perez DO Work Phone: [place] 05-28-2023 14:05-0400 Body mass index (BMI) [Ratio] 38.44 kg/m2 Mary Perez DO Work Phone: [place] 05-28-2023 14:05-0400 Body weight 104.78 kg Mary Perez DO Work Phone: [facility] 05-28-2023 14:03-0400 Body temperature 98.2 [degF] Mary Perez DO Work Phone: [facility] 05-28-2023 14:03-0400 Diastolic blood pressure 107 mm[Hg] Mary Perez DO Work Phone: [facility] 05-28-2023 14:03-0400 Systolic blood pressure 195 mm[Hg] Mary Perez DO Work Phone: [facility] 05-27-2023 20:43-0400 Body height 162.6 cm Floresita Jenkins Work Phone: [facility] 05-27-2023 20:43-0400 Body mass index (BMI) [Ratio] 39.65 kg/m2 Floresita Jenkins Work Phone: [facility] 05-27-2023 20:43-0400 Body temperature 97.5 [degF] Floresita [place] Work Phone: [place] 05-27-2023 20:43-0400 Body weight 104.78 kg Floresitakalpana RomeroPueblo Work Phone: [place] 05-27-2023 20:43-0400 Diastolic blood pressure 98 mm[Hg] Floresita Romeroledge Work Phone: [facility] 05-27-2023 20:43-0400 Heart rate 103 /min Floresitakalpana RomeroPueblo Work Phone: [place] 10-02-2023 20:43-0400 Respiratory rate 18 /min Floresita Jenkins Work Phone: [facility] 05-27-2023 20:43-0400 SaO2% (BldA) [Mass fraction] 95 % Floresita Jenkins Work Phone: [facility] 05-27-2023 20:43-0400 Systolic blood pressure 181 mm[Hg] Floresita Jenkins Work Phone: [facility] 05-25-2023 15:15-0400 Diastolic blood pressure 73 mm[Hg] Trey Bear DO Work Phone: [facility] 05-25-2023 15:15-0400 Heart rate 78 /min Trey Bear DO Work Phone: [facility] 05-25-2023 15:15-0400 Respiratory rate 18 /min Trey Bear DO Work Phone: [facility] [place] 05-25-2023 15:15-0400 SaO2% (BldA) [Mass fraction] 97 % Trey Bear DO Work Phone: [place] 05-25-2023 15:15-0400 Systolic blood pressure 151 mm[Hg] Trey Bear DO Work Phone: [facility] 05-25-2023 11:45-0400 Body temperature 97.9 [degF] Trey Bear DO Work Phone: [place] 05-25-2023 11:36-0400 Body height 165.1 cm Trey Bear DO Work Phone: [facility] 05-25-2023 11:36-0400 Body mass index (BMI) [Ratio] 38.56 kg/m2 Trey Bear DO Work Phone: [facility] 05-25-2023 11:36-0400 Body weight 105.1 kg Trey Bear DO Work Phone: [facility] 04-18-2023 13:26-0400 Body height 166.37 cm [facility] Work Phone: 04-18-2023 13:26-0400 Body mass index (BMI) [Ratio] 38.02 kg/m2 [facility] [email or web address]; [facility] im[facility]ji Work Phone: 04-18-2023 13:26-0400 Body surface area Derived from formula 2.12 m2 [facility] [email or web address]; [facility] [employer] Work Phone: 04-18-2023 13:26-0400 Body temperature 98.7 [degF] [facility]ina [facility] [email or web address]; [facility] [employer] Work Phone: Comment on above: Method: Thermal Scan 04-18-2023 13:26-0400 Body weight 105.24 kg [facility]ina [facility] [email or web address]; [facility] [employer] Work Phone: 04-18-2023 13:26-0400 Diastolic blood pressure 94 mm[Hg] [facility]ina [facility] [email or web address]; [facility] [employer] Work Phone: Comment on above: Patient Position: Sitting; Cuff Location : Left Arm; Cuff Size: Standard 04-18-2023 13:26-0400 Heart rate 99 /min Katarina Hoover [place] [email or web address]; [facility] [employer] Work Phone: Comment on above: Pattern: Regular 04-18-2023 13:26-0400 Inhaled oxygen concentration 20 % [facility]ina [facility] [email or web address]; [facility] Comment on above: Room air 04-18-2023 13:26-0400 Respiratory rate 16 /min [facility] [email or web address]; [facility] [employer] Work Phone: Comment on above: Pattern: Unlabored 04-18-2023 13:26-0400 SaO2% (BldA) [Mass fraction] 95 % [facility] [email or web address]; [facility] [employer] Work Phone: Comment on above: Room air 04-18-2023 13:26-0400 Systolic blood pressure 154 mm[Hg] Katarina [facility]; [facility] Work Phone: Comment on above: Patient Position: Sitting; Cuff Location : Left Arm; Cuff Size: Standard 04-16-2023 14:58-0400 Body height 166.37 cm Madison Payan CNP Work Phone: [facility]; [address] Work Phone: 04-16-2023 14:58-0400 Body mass index (BMI) [Ratio] 40.48 kg/m2 Madison Payan CNP Work Phone: [facility]; [address] Work Phone: 04-16-2023 14:58-0400 Body surface area Derived from formula 2.18 m2 Madison Payan CNP Work Phone: [facility] [place]; [address] Work Phone: 04-16-2023 14:58-0400 Body weight 112.04 kg Madison Payan CNP Work Phone: [facility] [place]; [address] Work Phone: 04-16-2023 14:58-0400 Diastolic blood pressure 100 mm[Hg] Madison Payan CNP Work Phone: [facility] [place]; [address] Work Phone: Comment on above: Patient Position: Sitting; Cuff Location : Left Arm; Cuff Size: Standard 04-16-2023 14:58-0400 Systolic blood pressure 167 mm[Hg] Madison Payan CNP Work Phone: [facility] [place]; [address] Work Phone: Comment on above: Patient Position: Sitting; Cuff Location : Left Arm; Cuff Size: Standard 04-15-2023 20:24-0400 Diastolic blood pressure 100 mm[Hg] Adrián Talbot DO Work Phone: [facility] 04-15-2023 20:24-0400 Systolic blood pressure 187 mm[Hg] Ebunolricardoa Wion DO Work Phone: [facility] 04-15-2023 20:21-0400 Body mass index (BMI) [Ratio] 40.17 kg/m2 Ebunolricardoa Wion DO Work Phone: [facility] 04-15-2023 20:21-0400 Body temperature 98.01 [degF] Ebunolricardoa Wion DO Work Phone: [facility] 04-15-2023 20:21-0400 Body weight 106.14 kg Ebunolricardoa Artemioon DO Work Phone: [facility] 04-15-2023 20:21-0400 Heart rate 81 /min Ebunolricardoa Wion DO Work Phone: [facility] 04-15-2023 20:21-0400 Respiratory rate 16 /min Ebunolricardoa Wion DO Work Phone: [facility] 04-15-2023 20:21-0400 SaO2% (BldA) [Mass fraction] 97 % Ebunolricardoa Wion DO Work Phone: [facility] 04-15-2023 17:54-0400 Body height 162.6 cm Tigre Song DO Work Phone: [facility] [place] 04-15-2023 17:54-0400 Body mass index (BMI) [Ratio] 40.34 kg/m2 Tigre Song DO Work Phone: [facility] 04-15-2023 17:54-0400 Body weight 106.59 kg Tigre Song DO Work Phone: [facility] 04-15-2023 17:52-0400 Body temperature 97.9 [degF] Tigre Song DO Work Phone: [facility] 04-15-2023 17:52-0400 Diastolic blood pressure 92 mm[Hg] Tigre Nohemi DO Work Phone: [facility] 04-15-2023 17:52-0400 Heart rate 88 /min Tigre Song DO Work Phone: [facility] 04-15-2023 17:52-0400 Respiratory rate 17 /min Tigre Song DO Work Phone: [facility] 04-15-2023 17:52-0400 SaO2% (BldA) [Mass fraction] 95 % Tigre Song DO Work Phone: [facility] 04-15-2023 17:52-0400 Systolic blood pressure 176 mm[Hg] Tigre Song DO Work Phone: [facility] 12-07-2022 18:23-0400 Body height 162.6 cm Jorge Luis Gordon MD Work Phone: [facility] 12-07-2022 18:23-0400 Body mass index (BMI) [Ratio] 41.71 kg/m2 Jorge Luis Gordno MD Work Phone: [facility] 12-07-2022 18:23-0400 Body weight 110.22 kg Jorge Luis Gordon MD Work Phone: [facility] 12-07-2022 18:21-0400 Body temperature 98.2 [degF] Jorge Luis Gordon MD Work Phone: [facility] 12-07-2022 18:21-0400 Diastolic blood pressure 96 mm[Hg] Jorge Luis Gordon MD Work Phone: [facility] [place] 12-07-2022 18:21-0400 Heart rate 105 /min Jorge Luis Gordon MD Work Phone: [facility] 12-07-2022 18:21-0400 Respiratory rate 16 /min Jorge Luis Gordon MD Work Phone: [facility] 12-07-2022 18:21-0400 SaO2% (BldA) [Mass fraction] 98 % Jorge Luis Gordon MD Work Phone: [facility] 12-07-2022 18:21-0400 Systolic blood pressure 159 mm[Hg] Jorge Luis Gordon MD Work Phone: [facility] 07-05-2022 09:12-0500 Body temperature 96.5 [degF] Hi [facility]; [facility] @ [facility] 07-05-2022 09:12-0500 Body weight 106.68 kg [facility]; [facility] @ [facility] 07-05-2022 09:12-0500 Diastolic blood pressure 76 mm[Hg] Hi [facility]; [facility] @ [facility] Comment on above: Patient Position: Sitting; Cuff Location : Left Arm; Cuff Size: Standard 07-05-2022 09:12-0500 Heart rate 99 /min [facility]; [facility] @ [facility] Comment on above: Pattern: Regular 07-05-2022 09:12-0500 Respiratory rate 17 /min [facility]; [facility] @ [facility] Comment on above: Pattern: Unlabored 07-05-2022 09:12-0500 SaO2% (BldA) [Mass fraction] 99 % [facility]; [facility] @ [facility] Comment on above: Room air 07-05-2022 09:12-0500 Systolic blood pressure 132 mm[Hg] [facility]; [facility] @ [facility] Comment on above: Patient Position: Sitting; Cuff Location : Left Arm; Cuff Size: Standard 04-13-2022 11:45-0400 Diastolic blood pressure 83 mm[Hg] John Koehler Work Phone: [facility]; [facility] @ [facility] Work Phone: Comment on above: Patient Position: Sitting; Cuff Location : Left Arm; Cuff Size: Large 04-13-2022 11:45-0400 Systolic blood pressure 144 mm[Hg] John Koehler Work Phone: [facility]; [facility] @ [facility] Work Phone: Comment on above: Patient Position: Sitting; Cuff Location : Left Arm; Cuff Size: Large 04-13-2022 11:04-0400 Body weight 109.03 kg Hi Hull [facility]; [facility] @ [facility] [employer] Phone: 04-13-2022 11:04-0400 Diastolic blood pressure 95 mm[Hg] Hi [place] [facility]; [employer] @ [facility] Work Phone: Comment on above: Patient Position: Sitting; Cuff Location : Left Arm; Cuff Size: Standard 04-13-2022 11:04-0400 Heart rate 106 /min Hi [place] [facility]; [employer] @ [facility] Work Phone: Comment on above: Pattern: Regular 04-13-2022 11:04-0400 Respiratory rate 17 /min Hi [place] [facility]; [employer] @ [facility] Work Phone: Comment on above: Pattern: Unlabored 04-13-2022 11:04-0400 SaO2% (BldA) [Mass fraction] 96 % [place] [facility]; [employer] @ [facility] Work Phone: Comment on above: Room air 04-13-2022 11:04-0400 Systolic blood pressure 152 mm[Hg] Hi [place] [facility]; [employer] @ [facility] Work Phone: Comment on above: Patient Position: Sitting; Cuff Location : Left Arm; Cuff Size: Standard 03-30-2022 15:20-0400 Body weight 108.47 kg Hi Hull [facility]; [facility] @ [facility] Work Phone: 03-30-2022 15:20-0400 Diastolic blood pressure 72 mm[Hg] Hi [place] [facility]; [employer] @ [facility] Work Phone: Comment on above: Patient Position: Sitting; Cuff Location : Left Arm; Cuff Size: Standard 03-30-2022 15:20-0400 Heart rate 99 /min Hi Hull [facility]; [facility] @ [facility] Work Phone: Comment on above: Pattern: Regular 03-30-2022 15:20-0400 Respiratory rate 99 /min Hi Hull [facility]; [facility] @ [facility] Work Phone: Comment on above: Pattern: Unlabored 03-30-2022 15:20-0400 Systolic blood pressure 136 mm[Hg] Hi [place] [facility]; [facility] @ [facility] Work Phone: Comment on above: Patient Position: Sitting; Cuff Location : Left Arm; Cuff Size: Standard 02-24-2022 12:25-0400 Body temperature 97.7 [degF] Yenni Rutledge MD Work Phone: [facility] 02-24-2022 12:20-0400 Diastolic blood pressure 96 mm[Hg] Yenni Rutledge MD Work Phone: [facility] 02-24-2022 12:20-0400 Heart rate 98 /min Yenni Rutledge MD Work Phone: [facility] 02-24-2022 12:20-0400 Respiratory rate 24 /min Yenni Rutledge MD Work Phone: [facility] 02-24-2022 12:20-0400 SaO2% (BldA) [Mass fraction] 97 % Yenni Rutledge MD Work Phone: [facility] 02-24-2022 12:20-0400 Systolic blood pressure 155 mm[Hg] Yenni Rutledge MD Work Phone: [facility] 02-24-2022 00:32-0400 Body height 162.6 cm Yenni Rutledge MD Work Phone: [facility] 02-24-2022 00:32-0400 Body mass index (BMI) [Ratio] 41.71 kg/m2 Yenni Rutledge MD Work Phone: [facility] 02-24-2022 00:32-0400 Body weight 110.22 kg Yenni Rutledge MD Work Phone: [facility] 01-17-2022 12:27-0400 Body height 166.37 cm Gavin Goodman MA [facility]; [address] Work Phone: 01-17-2022 12:27-0400 Body mass index (BMI) [Ratio] 40.48 kg/m2 Gavin Goodman MA [facility] [place]; [address] Work Phone: 01-17-2022 12:27-0400 Body surface area Derived from formula 2.18 m2 Gavin Goodman MA [facility]; [address] Work Phone: 01-17-2022 12:27-0400 Body temperature 97.9 [degF] Gavin Goodman MA [facility]; [address] Work Phone: 01-17-2022 12:27-0400 Body weight 112.04 kg Gavin Goodman MA [facility]; [address] Work Phone: 01-17-2022 12:27-0400 Diastolic blood pressure 80 mm[Hg] Gavin Goodman MA [facility]; [address] Work Phone: Comment on above: Patient Position: Sitting; Cuff Location : Left Arm; Cuff Size: Standard 01-17-2022 12:27-0400 Heart rate 97 /min Gavin Goodman MA [facility]; [address] Work Phone: Comment on above: Pattern: Regular 01-17-2022 12:27-0400 Inhaled oxygen concentration 20 % Gavin Goodman MA [facility]; [address] Comment on above: Room air 01-17-2022 12:27-0400 Respiratory rate 16 /min Gavin Goodman MA [facility]; [address] Work Phone: Comment on above: Pattern: Unlabored 01-17-2022 12:27-0400 SaO2% (BldA) [Mass fraction] 98 % Gavin Goodman [facility]; [address] Work Phone: Comment on above: Room air 01-17-2022 12:27-0400 Systolic blood pressure 140 mm[Hg] Gavin fairbanksigorDomingo Goodman [facility]; [address] Work Phone: Comment on above: Patient Position: Sitting; Cuff Location : Left Arm; Cuff Size: Standard 09-21-2021 10:10-0500 Body height 166.37 cm [facility]; [address] Work Phone: 09-21-2021 10:10-0500 Body mass index (BMI) [Ratio] 40.15 kg/m2 [facility]; [address] Work Phone: 09-21-2021 10:10-0500 Body surface area Derived from formula 2.17 m2 [facility]; [address] Work Phone: 09-21-2021 10:10-0500 Body temperature 96.7 [degF] [facility]; [address] Work Phone: 09-21-2021 10:10-0500 Body weight 111.13 kg [facility]; [address] Work Phone: 09-21-2021 10:10-0500 Diastolic blood pressure 94 mm[Hg] [facility]; [address] Work Phone: Comment on above: Patient Position: Sitting; Cuff Location : Left Arm; Cuff Size: Standard 09-21-2021 10:10-0500 Heart rate 90 /min [facility]; [address] Work Phone: Comment on above: Pattern: Regular 09-21-2021 10:10-0500 Inhaled oxygen concentration 20 % [facility] Comment on above: Room air 09-21-2021 10:10-0500 Respiratory rate 16 /[facility] [address] Work Phone: Comment on above: Pattern: Unlabored 09-21-2021 10:10-0500 SaO2% (BldA) [Mass fraction] 95 % [facility]; [address] Work Phone: Comment on above: Room air 09-21-2021 10:10-0500 Systolic blood pressure 156 mm[Hg] [facility]; [address] Work Phone: Comment on above: Patient Position: Sitting; Cuff Location : Left Arm; Cuff Size: Standard 06-26-2021 12:35-0400 Body height 166.37 cm sarah Bains PLANNER CHIEF Work Phone: [facility]; [address] Work Phone: 06-26-2021 12:35-0400 Body mass index (BMI) [Ratio] 38.51 kg/m2 sarah Bains PLANNER CHIEF Work Phone: [facility]; [address] Work Phone: 06-26-2021 12:35-0400 Body surface area Derived from formula 2.13 m2 sarah Rhoadesu PLANNER CHIEF Work Phone: [facility]; [address] Work Phone: 06-26-2021 12:35-0400 Body weight 106.6 kg sarah Bains PLANNER CHIEF Work Phone: [facility]; [address] Work Phone: 06-26-2021 12:35-0400 Diastolic blood pressure 88 mm[Hg] Braeden Bains PLANNER CHIEF Work Phone: [facility]; [address] Work Phone: Comment on above: Patient Position: Sitting; Cuff Location : Left Arm; Cuff Size: Standard 06-26-2021 12:35-0400 Systolic blood pressure 140 mm[Hg] Braeden Bains PLANNER CHIEF Work Phone: [facility]; [address] Work Phone: Comment on above: Patient Position: Sitting; Cuff Location : Left Arm; Cuff Size: Standard 04-03-2021 09:15-0400 Body height 166.37 cm Braeden Bains PLANNER CHIEF Work Phone: [facility]; [address] Work Phone: 04-03-2021 09:15-0400 Body mass index (BMI) [Ratio] 37.69 kg/m2 sarah Bains PLANNER CHIEF Work Phone: [facility]; [address] Work Phone: 04-03-2021 09:15-0400 Body surface area Derived from formula 2.11 m2 Braeden Bains PLANNER CHIEF Work Phone: [facility]; [address] Work Phone: 04-03-2021 09:15-0400 Body weight 104.33 kg Braeden Bains PLANNER CHIEF Work Phone: [facility]; [address] Work Phone: 04-03-2021 09:15-0400 Diastolic blood pressure 90 mm[Hg] Braeden Bains PLANNER CHIEF Work Phone: [facility]; [address] Work Phone: Comment on above: Patient Position: Sitting; Cuff Location : Left Arm; Cuff Size: Standard 04-03-2021 09:15-0400 Systolic blood pressure 142 mm[Hg] Braeden Bains PLANNER CHIEF Work Phone: [facility]; [address] Work Phone: Comment on above: Patient Position: Sitting; Cuff Location : Left Arm; Cuff Size: Standard 02-21-2020 07:28-0400 BMI (Body Mass Index) 35.78 kg/m2 [facility] 02-21-2020 07:28-0400 Body weight 97.52 kg [facility] 02-21-2020 07:28-0400 Height 165.1 cm [facility] 02-21-2020 07:25-0400 Body Temperature 98.29 [degF] [facility] 02-21-2020 07:25-0400 BP Diastolic 103 mm[Hg] [facility] 02-21-2020 07:25-0400 BP Systolic 167 mm[Hg] [facility] 02-21-2020 07:25-0400 Pulse (Heart Rate) 96 /min [facility] 02-21-2020 07:25-0400 Pulse Oximetry 95 % [facility] 02-21-2020 07:25-0400 Respiratory Rate 18 /min [facility] 12-22-2019 11:08-0400 BMI (Body Mass Index) 37.44 kg/m2 [facility] 12-22-2019 11:08-0400 Body Temperature 98.8 [degF] [facility] 12-22-2019 11:08-0400 Body weight 102.06 kg [facility] 12-22-2019 11:08-0400 BP Diastolic 87 mm[Hg] [facility] Comment on above: did not take B/P medication 12-22-2019 11:08-0400 BP Systolic 164 mm[Hg] [facility] Comment on above: did not take B/P medication 12-22-2019 11:08-0400 Height 165.1 cm [facility] 12-22-2019 11:08-0400 Pulse (Heart Rate) 100 /min [facility] 12-22-2019 11:08-0400 Pulse Oximetry 96 % [facility] 12-22-2019 11:08-0400 Respiratory Rate 18 /min [facility] 10-07-2019 14:59-0500 BMI (Body Mass Index) 40.1 kg/m2 [facility] 10-07-2019 14:59-0500 Body Temperature 98.8 [degF] [facility] 10-07-2019 14:59-0500 Body weight 109.32 kg [facility] 10-07-2019 14:59-0500 BP Diastolic 98 mm[Hg] [facility] Comment on above: pt hasn't taken bp meds in 2 days 10-07-2019 14:59-0500 BP Systolic 149 mm[Hg] [facility] Comment on above: pt hasn't taken bp meds in 2 days 10-07-2019 14:59-0500 Height 165.1 cm [facility] 10-07-2019 14:59-0500 Pulse (Heart Rate) 125 /min [facility] 10-07-2019 14:59-0500 Pulse Oximetry 92 % [facility] 10-07-2019 14:59-0500 Respiratory Rate 20 /min [facility] 08-27-2019 12:46-0500 Body height 166.37 cm Wenyd Farrell [facility]; [address] Work Phone: 08-27-2019 12:46-0500 Body mass index (BMI) [Ratio] 40.48 kg/m2 Wendy Farrell MA [facility]; [address] Work Phone: 08-27-2019 12:46-0500 Body surface area Derived from formula 2.18 m2 Wendy Farrell MA [facility]; [address] Work Phone: 08-27-2019 12:46-0500 Body temperature 97.8 [degF] Wendy Farrell [facility]; [address] Work Phone: Comment on above: Method: Oral 08-27-2019 12:46-0500 Body weight 112.04 kg Wendy Goldmaner [facility]; [address] Work Phone: 08-27-2019 12:46-0500 Diastolic blood pressure 86 mm[Hg] Wendy zzz. Goldmaner [facility]; [address] Work Phone: Comment on above: Patient Position: Sitting; Cuff Location : Left Arm; Cuff Size: Standard 08-27-2019 12:46-0500 Heart rate 78 /min Wendy Goldmaner [facility]; [address] Work Phone: Comment on above: Pattern: Regular 08-27-2019 12:46-0500 Inhaled oxygen concentration 20 % Wendy Goldmaner [facility]; [facility] Comment on above: Room air 08-27-2019 12:46-0500 Respiratory rate 16 /min Wendy Goldmaner [facility]; [address] Work Phone: Comment on above: Pattern: Unlabored 08-27-2019 12:46-0500 SaO2% (BldA) [Mass fraction] 98 % Wendy Goldmaner [facility]; [address] Work Phone: Comment on above: Room air 08-27-2019 12:46-0500 Systolic blood pressure 136 mm[Hg] Wendy Goldmaner [facility]; [address] Work Phone: Comment on above: Patient Position: Sitting; Cuff Location : Left Arm; Cuff Size: Standard 04-05-2019 15:08-0400 BMI (Body Mass Index) 37.44 kg/m2 Kristine Ware [facility] 04-05-2019 15:08-0400 Body Temperature 98.49 [degF] Kristine Ware [facility] 04-05-2019 15:08-0400 Body weight 102.06 kg Kristine Ware [facility] 04-05-2019 15:08-0400 BP Diastolic 89 mm[Hg] [facility] 04-05-2019 15:08-0400 BP Systolic 139 mm[Hg] Kristine Ware [facility] 04-05-2019 15:08-0400 Height 165.1 cm [facility] 04-05-2019 15:08-0400 Pulse (Heart Rate) 103 /min [facility] 04-05-2019 15:08-0400 Pulse Oximetry 96 % Kristine Ware [facility] 04-05-2019 15:08-0400 Respiratory Rate 18 /min [facility] 03-17-2019 14:02-0400 Body height 166.37 cm Wendy Farrell [facility]; [address] Work Phone: 03-17-2019 14:02-0400 Body mass index (BMI) [Ratio] 38.67 kg/m2 Wendy Farrell [facility]; [address] Work Phone: 03-17-2019 14:02-0400 Body surface area Derived from formula 2.13 m2 Wendy Farrell [facility]; [address] Work Phone: 03-17-2019 14:02-0400 Body temperature 98.5 [degF] Wendy Farrell [facility]; [address] Work Phone: Comment on above: Method: Oral 03-17-2019 14:02-0400 Body weight 107.05 kg Wendy Farrell MA [facility]; [address] Work Phone: 03-17-2019 14:02-0400 Diastolic blood pressure 82 mm[Hg] Wendy Farrell [facility]; [address] Work Phone: Comment on above: Patient Position: Sitting; Cuff Location : Left Arm; Cuff Size: Standard 03-17-2019 14:02-0400 Heart rate 118 /min Wendy Farrell [facility]; [address] Work Phone: Comment on above: Pattern: Regular 03-17-2019 14:02-0400 Inhaled oxygen concentration 20 % Wendy Farrell [facility]; [facility] Comment on above: Room air 03-17-2019 14:02-0400 Respiratory rate 16 /min Wendy Farrell [facility]; [address] Work Phone: Comment on above: Pattern: Unlabored 03-17-2019 14:02-0400 SaO2% (BldA) [Mass fraction] 98 % Wendy Farrell [facility]; [address] Work Phone: Comment on above: Room air 03-17-2019 14:02-0400 Systolic blood pressure 124 mm[Hg] Wendy Farrell [facility]; [address] Work Phone: Comment on above: Patient Position: Sitting; Cuff Location : Left Arm; Cuff Size: Standard 03-12-2019 14:54-0400 Body height 166.37 cm [facility]ie [facility]az [facility] [facility]; [address] Work Phone: 03-12-2019 14:54-0400 Body mass index (BMI) [Ratio] 38.67 kg/m2 Lucie Paz [facility]; [address] Work Phone: 03-12-2019 14:54-0400 Body surface area Derived from formula 2.13 m2 Lucie Paz [facility]; [address] Work Phone: 03-12-2019 14:54-0400 Body temperature 98.3 [degF] Lucie Paz [facility]; [address] Work Phone: Comment on above: Method: Oral 03-12-2019 14:54-0400 Body weight 107.05 kg Lucie Paz [place] [facility]; [address] Work Phone: 03-12-2019 14:54-0400 Diastolic blood pressure 90 mm[Hg] Lucie Paz [facility]; [address] Work Phone: Comment on above: Patient Position: Sitting; Cuff Location : Left Arm; Cuff Size: Standard 03-12-2019 14:54-0400 Heart rate 96 /min Lucie Paz [facility]; [address] Work Phone: Comment on above: Pattern: Regular 03-12-2019 14:54-0400 Respiratory rate 14 /min Lucie Paz [facility]; [address] Work Phone: Comment on above: Pattern: Unlabored 03-12-2019 14:54-0400 Systolic blood pressure 136 mm[Hg] Lucie Paz MA [facility]; [address] Work Phone: Comment on above: Patient Position: Sitting; Cuff Location : Left Arm; Cuff Size: Standard 03-12-2019 10:39-0400 BMI (Body Mass Index) 37.39 kg/m2 [facility] 03-12-2019 10:39-0400 Body weight 108.27 kg [facility] 03-12-2019 10:39-0400 Height 170.2 cm [facility] 03-09-2019 10:54-0400 Body height 166.37 cm Melissaorville Smartshubham ROGEL [facility] ; [address] Work Phone: 03-09-2019 10:54-0400 Body mass index (BMI) [Ratio] 38.39 kg/m2 Melissa Pittman MA [facility]; [address] Work Phone: 03-09-2019 10:54-0400 Body surface area Derived from formula 2.13 m2 Melissa Toya ROGEL [facility]; [address] Work Phone: 03-09-2019 10:54-0400 Body temperature 97.8 [degF] Melissa Smartshubham JUAN F [facility]; [address] Work Phone: Comment on above: Method: Oral 03-09-2019 10:54-0400 Body weight 106.26 kg Melissa Toya ROGEL [facility]; [address] Work Phone: 03-09-2019 10:54-0400 Diastolic blood pressure 106 mm[Hg] Melissa Pittman MA [facility]; [address] Work Phone: Comment on above: Patient Position: Sitting; Cuff Location : Left Arm; Cuff Size: Standard 03-09-2019 10:54-0400 Heart rate 86 /min Melissa Pittman MA [facility]; [address] Work Phone: Comment on above: Pattern: Regular 03-09-2019 10:54-0400 Inhaled oxygen concentration 20 % Melissa Pittman [facility]; [facility] Comment on above: Room air 03-09-2019 10:54-0400 Respiratory rate 16 /min Melissa [facility] [address] Work Phone: Comment on above: Pattern: Unlabored 03-09-2019 10:54-0400 SaO2% (BldA) [Mass fraction] 97 % Melissa Pittman [facility]; [address] Work Phone: Comment on above: Room air 03-09-2019 10:54-0400 Systolic blood pressure 150 mm[Hg] Melissa Pittman [facility]; [address] Work Phone: Comment on above: Patient Position: Sitting; Cuff Location : Left Arm; Cuff Size: Standard 02-20-2019 13:11-0400 Body Temperature 97.81 [degF] [facility] 02-20-2019 13:11-0400 BP Diastolic 86 mm[Hg] [facility] 02-20-2019 13:11-0400 BP Systolic 147 mm[Hg] [facility] 02-20-2019 13:11-0400 Pulse (Heart Rate) 91 /min [facility] 02-20-2019 13:11-0400 Pulse Oximetry 98 % [facility] 02-20-2019 13:11-0400 Respiratory Rate 16 /min [facility] 02-19-2019 09:23-0400 BMI (Body Mass Index) 36.81 kg/m2 [facility] 02-19-2019 09:23-0400 Body Temperature 98.4 [degF] Pacheco [facility] 02-19-2019 09:23-0400 Body weight 106.59 kg Pacheco [facility] 02-19-2019 09:23-0400 BP Diastolic 88 mm[Hg] P[facility]co [facility] 02-19-2019 09:23-0400 BP Systolic 134 mm[Hg] [facility] 02-19-2019 09:23-0400 Height 170.2 cm Pacheco [facility] 02-19-2019 09:23-0400 Pulse (Heart Rate) 100 /min P[facility]co [facility] 02-19-2019 09:23-0400 Pulse Oximetry 97 % Pacheco [facility] 02-19-2019 09:23-0400 Respiratory Rate 15 /min Pacheco [facility] 01-15-2019 17:18-0400 BMI (Body Mass Index) 39.48 kg/m2 [facility] 01-15-2019 17:18-0400 Body Temperature 98.2 [degF] [facility] 01-15-2019 17:18-0400 Body weight 104.33 kg [facility] 01-15-2019 17:18-0400 BP Diastolic 75 mm[Hg] [facility] 01-15-2019 17:18-0400 BP Systolic 119 mm[Hg] [facility] 01-15-2019 17:18-0400 Height 162.6 cm [facility] 01-15-2019 17:18-0400 Pulse (Heart Rate) 94 /min [facility] 01-15-2019 17:18-0400 Pulse Oximetry 97 % [facility] 01-15-2019 17:18-0400 Respiratory Rate 18 /min [facility] 01-11-2019 23:38-0400 Body Temperature 97.81 [degF] Sheyla Patel [facility] 01-11-2019 23:38-0400 BP Diastolic 101 mm[Hg] Sheyla Patel [facility] 01-11-2019 23:38-0400 BP Systolic 145 mm[Hg] Sheyla Patel [facility] 01-11-2019 23:38-0400 Pulse (Heart Rate) 91 /min Sheyla Patel [facility] 01-11-2019 23:38-0400 Pulse Oximetry 98 % Sheyla Patel [facility] 01-11-2019 23:38-0400 Respiratory Rate 16 /min Sheyla Patel [facility] 01-08-2019 22:44-0400 BMI (Body Mass Index) 39.11 kg/m2 [facility] 01-08-2019 22:44-0400 Body Temperature 98.29 [degF] [facility] 01-08-2019 22:44-0400 BP Diastolic 89 mm[Hg] [facility] 01-08-2019 22:44-0400 BP Systolic 137 mm[Hg] [facility] 01-08-2019 22:44-0400 Height 165.1 cm [facility] 01-08-2019 22:44-0400 Pulse (Heart Rate) 119 /min [facility] 01-08-2019 22:44-0400 Pulse Oximetry 93 % [facility] 01-08-2019 22:44-0400 Respiratory Rate 18 /min [facility] 01-08-2019 22:44-0400 Weight 106.59 kg [facility] 12-16-2018 17:13-0400 Body height 166.37 cm Wendy Farrell MA [facility]; [address] Work Phone: 12-16-2018 17:13-0400 Body mass index (BMI) [Ratio] 38.84 kg/m2 Wendy Farrell MA [facility]; [address] Work Phone: 12-16-2018 17:13-0400 Body surface area Derived from formula 2.14 m2 Wendy Farrell MA [facility]; [address] Work Phone: 12-16-2018 17:13-0400 Body temperature 98 [degF] Wendy Farrell MA [facility]; [address] Work Phone: Comment on above: Method: Oral 12-16-2018 17:13-0400 Body weight 107.5 kg Wendy Farrell MA [facility]; [address] Work Phone: 12-16-2018 17:13-0400 Diastolic blood pressure 96 mm[Hg] [facility] [email or web address]; [address] Work Phone: Comment on above: Patient Position: Sitting; Cuff Location : Left Arm; Cuff Size: Standard 12-16-2018 17:13-0400 Heart rate 94 /min [facility] [place]; [address] Work Phone: Comment on above: Pattern: Regular 12-16-2018 17:13-0400 Respiratory rate 16 /min [facility] [place]; [address] Work Phone: Comment on above: Pattern: Unlabored 12-16-2018 17:13-0400 Systolic blood pressure 136 mm[Hg] [facility] [place]; [address] Work Phone: Comment on above: Patient Position: Sitting; Cuff Location : Left Arm; Cuff Size: Standard 07-02-2018 13:07-0500 Body height 166.37 cm Hattiesal vrigenDomingo Mayo [facility]; [address] Work Phone: 07-02-2018 13:07-0500 Body mass index (BMI) [Ratio] 38.51 kg/m2 [facility] wil[facility] [place]; [address] Work Phone: 07-02-2018 13:07-0500 Body surface area Derived from formula 2.13 m2 Hattie wilburn [facility] [place]; [address] Work Phone: 07-02-2018 13:07-0500 Body temperature 98.1 [degF] Hatt[facility] wilburn [facility]; [address] Work Phone: Comment on above: Method: Oral 07-02-2018 13:07-0500 Body weight 106.6 kg Hattie [facility]; [address] Work Phone: 07-02-2018 13:07-0500 Diastolic blood pressure 90 mm[Hg] Hattie kevin [place] [facility] [place]; [address] Work Phone: Comment on above: Patient Position: Sitting; Cuff Location : Left Arm; Cuff Size: Standard 07-02-2018 13:07-0500 Heart rate 94 /min Hattiesal wiblurn [facility]; [address] Work Phone: Comment on above: Pattern: Regular 07-02-2018 13:07-0500 Inhaled oxygen concentration 20 % Hattie [place] [facility]; [facility] Comment on above: Room air 07-02-2018 13:07-0500 Respiratory rate 16 /min Hattiesal [facility]; [address] Work Phone: Comment on above: Pattern: Unlabored 07-02-2018 13:07-0500 SaO2% (BldA) [Mass fraction] 97 % [facility]ie [facility] [place]; [address] Work Phone: Comment on above: Room air 07-02-2018 13:07-0500 Systolic blood pressure 144 mm[Hg] Hattie [facility] [place]; [address] Work Phone: Comment on above: Patient Position: Sitting; Cuff Location : Left Arm; Cuff Size: Standard 06-29-2018 09:50-0500 Body Temperature 98.2 [degF] [facility] 06-29-2018 09:50-0500 BP Diastolic 94 mm[Hg] [facility] 06-29-2018 09:50-0500 BP Systolic 175 mm[Hg] [facility] 06-29-2018 09:50-0500 Pulse (Heart Rate) 90 /min [facility] 06-29-2018 09:50-0500 Pulse Oximetry 97 % [facility] 06-29-2018 09:50-0500 Respiratory Rate 18 /min [facility] 01-28-2018 15:38-0400 Diastolic blood pressure 84 mm[Hg] Miranda Coulter [facility]; [address] Work Phone: Comment on above: Patient Position: Sitting; Cuff Location : Left Arm; Cuff Size: Standard 01-28-2018 15:38-0400 Systolic blood pressure 118 mm[Hg] Miranda Coulter RETORT SETTER [facility]; [address] Work Phone: Comment on above: Patient Position: Sitting; Cuff Location : Left Arm; Cuff Size: Standard 01-28-2018 15:26-0400 Body height 166.37 cm Miranda Coulter RETORT SETTER [facility]; [address] Work Phone: 01-28-2018 15:26-0400 Body mass index (BMI) [Ratio] 38.35 kg/m2 Miranda Coulter [facility]; [address] Work Phone: 01-28-2018 15:26-0400 Body surface area Derived from formula 2.13 m2 Miranda Coulter [facility]; [address] Work Phone: 01-28-2018 15:26-0400 Body temperature 98.3 [degF] Miranda Coulter [facility]; [address] Work Phone: Comment on above: Method: Oral 01-28-2018 15:26-0400 Body weight 106.14 kg Miranda Coulter [facility]; [address] Work Phone: 01-28-2018 15:26-0400 Diastolic blood pressure 80 mm[Hg] Miranda Coulter [facility]; [address] Work Phone: Comment on above: Patient Position: Sitting; Cuff Location : Left Arm; Cuff Size: Standard 01-28-2018 15:26-0400 Heart rate 84 /min Miranda Coulter [facility]; [address] Work Phone: Comment on above: Pattern: Regular 01-28-2018 15:26-0400 Inhaled oxygen concentration 20 % [facility] Comment on above: Room air 01-28-2018 15:26-0400 SaO2% (BldA) [Mass fraction] 98 % Miranda Coulter [facility]; [address] Work Phone: Comment on above: Room air 01-28-2018 15:26-0400 Systolic blood pressure 142 mm[Hg] Miranda Coulter [facility]; [address] Work Phone: Comment on above: Patient Position: Sitting; Cuff Location : Left Arm; Cuff Size: Standard 01-21-2018 14:10-0400 Body height 166.37 cm Hattie kevinzz. [facility] Pr[facility]; [address] Work Phone: 01-21-2018 14:10-0400 Body mass index (BMI) [Ratio] 22.94 kg/m2 Hattie wilburn [facility]; [address] Work Phone: 01-21-2018 14:10-0400 Body surface area Derived from formula 1.71 m2 Hattie wilburn [facility]; [address] Work Phone: 01-21-2018 14:10-0400 Body temperature 98.2 [degF] Hattie brownnetoDomingo [facility] leesa; [address] Work Phone: Comment on above: Method: Oral 01-21-2018 14:10-0400 Body weight 63.5 kg Hattie Mayo [facility] alth; [address] Work Phone: 01-21-2018 14:10-0400 Diastolic blood pressure 88 mm[Hg] Hattie wilburn [facility]; [address] Work Phone: Comment on above: Patient Position: Sitting; Cuff Location : Left Arm; Cuff Size: Standard 01-21-2018 14:10-0400 Heart rate 97 /min Hattie Mayo [facility]; [address] Work Phone: Comment on above: Pattern: Regular 01-21-2018 14:10-0400 Inhaled oxygen concentration 20 % Hattie Mayo [facility]; [facility] Comment on above: Room air 01-21-2018 14:10-0400 Respiratory rate 16 /min Hattie wiblurn [facility] ealth; [address] Work Phone: Comment on above: Pattern: Unlabored 01-21-2018 14:10-0400 SaO2% (BldA) [Mass fraction] 98 % Hattie wilburn [facility]; [address] Work Phone: Comment on above: Room air 01-21-2018 14:10-0400 Systolic blood pressure 138 mm[Hg] Hattie wilburn [facility]; [address] Work Phone: Comment on above: Patient Position: Sitting; Cuff Location : Left Arm; Cuff Size: Standard 01-08-2018 11:34-0400 Body height 166.37 cm Sterling LUGO Work Phone: [facility]; [address] Work Phone: 01-08-2018 11:34-0400 Body mass index (BMI) [Ratio] 39.33 kg/m2 Sterling LUGO Work Phone: [facility] [place]; [address] Work Phone: 01-08-2018 11:34-0400 Body surface area Derived from formula 2.15 m2 Sterling LUGO Work Phone: [facility] [place]; [address] Work Phone: 01-08-2018 11:34-0400 Body weight 108.86 kg Sterling LUGO Work Phone: [facility] [place]; [address] Work Phone: 01-08-2018 10:38-0400 Body height 166.37 cm Hattie Mims alth; [address] Work Phone: 01-08-2018 10:38-0400 Body mass index (BMI) [Ratio] 39.33 kg/m2 Hattie Mayo [facility]; [address] Work Phone: 01-08-2018 10:38-0400 Body surface area Derived from formula 2.15 m2 Hattie Mayo [facility]; [address] Work Phone: 01-08-2018 10:38-0400 Body temperature 98 [degF] Hattie [facility]; [address] Work Phone: 01-08-2018 10:38-0400 Body weight 108.86 kg Hattie Mims alth; [address] Work Phone: 01-08-2018 10:38-0400 Diastolic blood pressure 72 mm[Hg] Hattie Mayo [facility]; [address] Work Phone: Comment on above: Patient Position: Sitting; Cuff Location : Left Arm; Cuff Size: Standard 01-08-2018 10:38-0400 Heart rate 97 /min Hattie Mims alth; [address] Work Phone: Comment on above: Pattern: Regular 01-08-2018 10:38-0400 Inhaled oxygen concentration 20 % [facility]att[facility] wilburn [facility]; [facility] Comment on above: Room air 01-08-2018 10:38-0400 Respiratory rate 16 /min Hattie [facility] Robreto e[facility]; [address] Work Phone: Comment on above: Pattern: Unlabored 01-08-2018 10:38-0400 SaO2% (BldA) [Mass fraction] 98 % [facility] [place]; [address] Work Phone: Comment on above: Room air 01-08-2018 10:38-0400 Systolic blood pressure 138 mm[Hg] [facility]burn [facility] [place]; [address] Work Phone: Comment on above: Patient Position: Sitting; Cuff Location : Left Arm; Cuff Size: Standard 12-04-2017 16:06-0400 Body height 166.37 cm Hattie Mims alth; [address] Work Phone: 12-04-2017 16:06-0400 Body mass index (BMI) [Ratio] 37.92 kg/m2 Hattie wilburn [facility] [email or web address]; [address] Work Phone: 12-04-2017 16:06-0400 Body surface area Derived from formula 2.12 m2 Hattie wilburn [facility]; [address] Work Phone: 12-04-2017 16:06-0400 Body temperature 98.6 [degF] Hattie [facility]; [address] Work Phone: Comment on above: Method: Oral 12-04-2017 16:06-0400 Body weight 104.95 kg Hattie brownnetoDomingo Mims alth; [address] Work Phone: 12-04-2017 16:06-0400 Diastolic blood pressure 110 mm[Hg] Hattie wilburn [facility] [place]; [address] Work Phone: Comment on above: Patient Position: Sitting; Cuff Location : Left Arm; Cuff Size: Standard 12-04-2017 16:06-0400 Heart rate 110 /min Hattie brown Gael Mims alth; [address] Work Phone: Comment on above: Pattern: Regular 12-04-2017 16:06-0400 Inhaled oxygen concentration 20 % Hattie brown [facility] [email or web address]; [facility] Comment on above: Room air 12-04-2017 16:06-0400 Respiratory rate 16 /min Hattie wilburn [facility] j[facility]ny; [address] Work Phone: Comment on above: Pattern: Unlabored 12-04-2017 16:06-0400 SaO2% (BldA) [Mass fraction] 96 % Hattie wilburn [facility]; [address] Work Phone: Comment on above: Room air 12-04-2017 16:06-0400 Systolic blood pressure 154 mm[Hg] Hattie wilburn [facility]; [address] Work Phone: Comment on above: Patient Position: Sitting; Cuff Location : Left Arm; Cuff Size: Standard 06-19-2017 08:29-0400 Body height 166.37 cm sarah Bains CNP Work Phone: [facility]; [address] Work Phone: 06-19-2017 08:29-0400 Body mass index (BMI) [Ratio] 37.59 kg/m2 sarah Bains CNP Work Phone: [facility]; [address] Work Phone: 06-19-2017 08:29-0400 Body surface area Derived from formula 2.11 m2 sarah Bains CNP Work Phone: [facility]; [address] Work Phone: 06-19-2017 08:29-0400 Body temperature 98 [degF] sarah Bains CNP Work Phone: [facility]; [address] Work Phone: Comment on above: Method: Oral 06-19-2017 08:29-0400 Body weight 104.06 kg sarah Bains CNP Work Phone: [facility]; [address] Work Phone: 06-19-2017 08:29-0400 Diastolic blood pressure 94 mm[Hg] sarah Bains CNP Work Phone: [facility]; [address] Work Phone: Comment on above: Patient Position: Sitting; Cuff Location : Left Arm; Cuff Size: Standard 06-19-2017 08:29-0400 Heart rate 86 /min Braeden Bains CNP Work Phone: [facility] [place]; [address] Work Phone: Comment on above: Pattern: Regular 06-19-2017 08:29-0400 Inhaled oxygen concentration 20 % Braeden Bains CNP Work Phone: [facility]; [facility] Comment on above: Room air 06-19-2017 08:29-0400 SaO2% (BldA) [Mass fraction] 98 % Braeden Bains PLANNER CHIEF Work Phone: [facility]; [address] Work Phone: Comment on above: Room air 06-19-2017 08:29-0400 Systolic blood pressure 112 mm[Hg] Braeden Bains PLANNER CHIEF Work Phone: [facility]; [address] Work Phone: Comment on above: Patient Position: Sitting; Cuff Location : Left Arm; Cuff Size: Standard Encounters Encounter Date Encounter Type Care Provider Facility Start: 05-20-2024 End: 05-20-2024 ambulatory SASHA ALVAREZ Not Available Start: 05-11-2024 End: 05-11-2024 Emergency department patient visit [facility] Facility:[facility] Start: 04-23-2024 End: 04-23-2024 ambulatory Ehsan MARBLE Facility:[facility] Start: 01-11-2024 Depression screening Braeden Bains CNP Work Phone: [facility] Start: 01-11-2024 End: 01-21-2024 Office outpatient visit 15 minutes Braeden Bains CNP Work Phone: [facility] Start: 01-08-2024 End: 01-08-2024 Transitional Care Management Braeden Bains CNP Work Phone: [facility] Start: 01-04-2024 End: 01-08-2024 ambulatory [facility] Start: 01-04-2024 End: 01-05-2024 Emergency department patient visit [facility] Start: 01-03-2024 End: 01-03-2024 ambulatory NICHOLE HO Facility:[facility] Start: 01-03-2024 End: 01-03-2024 Subsequent hospital visit by physician Chan Whitaker (Lg Br/Open/1.5t) Work Phone: Radiology Start: 12-15-2023 End: 12-15-2023 Emergency department patient visit [facility] Start: 12-06-2023 End: 12-10-2023 Emergency department patient visit [facility] Start: 09-17-2023 End: 09-17-2023 Emergency department patient visit FLORESITA~[id number] GREGORY CESPEDESNA [facility] Start: 09-17-2023 End: 09-17-2023 Emergency department patient visit Papito Hoffman MD Work Phone: [facility] Comment on above: Cellulitis of head e xcept face (Primary Dx) Start: 09-17-2023 End: 09-17-2023 Evaluation and management of inpatient Papito Hoffman MD Work Phone: [facility] Start: 07-01-2023 End: 07-01-2023 ambulatory [facility] Start: 06-18-2023 End: 06-18-2023 Office outpatient visit 15 minutes Braeden Bains CNP Work Phone: [facility] Start: 06-06-2023 ambulatory YE DOMINGUEZ Facili ty:[facility] Start: 06-04-2023 ambulatory YE Vinnie DOMINGUEZ Faci lity:[facility] Start: 06-03-2023 ambulatory YE DOMINGUEZ Facili ty:[facility] Start: 05-31-2023 ambulatory YE DOMINGUEZ Facili ty:[facility] Start: 05-30-2023 End: 05-30-2023 Orders Only Braeden Bains PLANNER CHIEF Work Phone: [facility] Start: 05-29-2023 End: 05-29-2023 Office outpatient visit 15 minutes Braeden Bains PLANNER CHIEF Work Phone: [facility] Start: 05-28-2023 End: 05-28-2023 Emergency department patient visit Mary Rakesh Garridoolivia DO Work Phone: [facility] Comment on above: Chest pain, unspecif ied type (Primary Dx) Start: 05-28-2023 End: 05-28-2023 Evaluation and management of inpatient Mary Bob Dinojaneth DO Work Phone: [facility] Start: 05-28-2023 Emergency department [facility] visit [facility] Facility[facility] Start: 05-27-2023 End: 05-28-2023 Emergency department patient visit FLORESITA~[id number] GREGORY CANAS [facility] Start: 05-27-2023 End: 05-27-2023 Emergency department patient visit Floresita Jenkins Work Phone: [facility] Start: 05-27-2023 End: 05-27-2023 Evaluation and management of inpatient Floresita Gregory Work Phone: [facility] Start: 05-25-2023 End: 05-25-2023 Emergency department patient visit FLORESITA~[id number] GREGORY CANAS [facility] Start: 05-25-2023 End: 05-25-2023 Emergency department patient visit Trey Bear DO Work Phone: [facility] Comment on above: Chest wall pain (Naty bal Dx) Start: 05-25-2023 End: 05-25-2023 Evaluation and management of inpatient Trey Bear DO Work Phone: [facility] Start: 04-18-2023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 Appointment Request [facility] Start: 06-18-2023 Patient Education [facility]; [facility] Start: 05-30-2023 Hemoglobin glycosyla julia a1c HEMOGLOBIN GLYCLATED (HGB A1C) (47890) Start: 30-May-2023 9:04 [facility] Start: 05-29-2023 Urine albumin quantitative Microalb/Creat Ratio, Rand Ur ([id number]) Start: 29-May-2023 16:23 [facility]; [facility] Start: 05-29-2023 Assay of thyroid stimulating hormone tsh TSH (THYROID STIMULATING HORMONE) ([id number]) Start: 29-May-2023 16:23 [facility]; [facility] Start: 05-29-2023 Blood count complete auto&auto difrntl wbc CBC, PLATELETS & AUT DIFF (12723) Start: 29-May-2023 16:23 [facility]; [facility] Start: 05-29-2023 Lipid panel LIPID PANEL (8 0061) Start: 29-May-2023 16:23 [facility]; [facility] Start: 05-29-2023 Comprehensive metabo lic panel COMPREHENSIVE METABOLIC PANEL ([id number]) Start: 29-May-2023 16:23 [facility]; [facility] Start: 05-29-2023 End: 06-17-2023 Screening mammography bi 2-[facility]; [facility] Start: 04-26-2023 COVID-19 Vaccine ( season) COVID-19 Vaccine ( season) [facility] Start: 04-26-2023 Influenza vaccination [facility] Start: 04-18-2023 Follow-up encounter Medical; F fabian Up - hypertension [facility] Start: 18-Apr-2023 11:00 ERIKA Jenkins Appointment Request [facility] Start: 04-13-2023 History and physical examination, annual for health maintenance Wellness Visit [facility] Start: 02-24-2023 Hypertension/CHF/CAD Annual BMP Blood Test Hypertension/CHF/CAD Annual BMP Blood Test [facility] Start: 09-26-2022 Screening for malign ant neoplasm of breast Mammogram Screening [facility] Start: 2022 Screening for malign ant neoplasm of breast Mammogram [facility] Start: 07-16-2022 Patient encounter procedure Medical; Phone Visit (15 minutes) - Test resulttttttt [facility] Start: 16-Jul-2022 10:15 Christine ULRICH, Jennifer Montemayor Appointment Request [facility] Start: 07-05-2022 Mental status assessed ASSESSM ENT AND MONITORING OF MENTAL STATUS () Start: 05-Jul-2022 Intent Heart [facility]; [facility] @ [facility] Start: 07-05-2022 Level i surg patholo gy gross examination only TISSUE EXAM BY PATHOLOGIST, LEVEL I ([id number]) Start: 05-Jul-2022 10:01 Request [facility]; [facility] @ [facility] Start: 07-05-2022 Urine test visual color cmprsn meths Urine HCG Test (IN HOUSE) ([id number]) Start: 05-Jul-2022 9:12 Request [facility]; [facility] @ [facility] Start: 05-01-2022 FQHC visit new patient Medical ; Adult New Patient - irritable bowel [facility] Start: 01-May-2022 13:15 ERIKA Ramires Appointment Request [facility] Start: 04-26-2022 Influenza vaccination [facility] Start: 04-13-2022 Hpv, dna, dir probe Pap with H PV 16/18/45 (Above 30) Start: 13-Apr-2022 11:18 Request [facility]; [facility] @ [facility] Work Phone: Start: 04-13-2022 Manual pelvic examination Medical; Well Woman/Pap/Pelvic Pain (30) - WWV [facility] @ [facility] Start: 13-Apr-2022 11:15 John Koehler Appointment Request [facility] @ [facility] Start: 03-30-2022 Gonadotropin chorion ic quantitative BHCG (HUMAN CHORIONIC GONADOTROPIN - BETA) (15207) Start: 30-Mar-2022 15:45 Request [facility]; [facility] @ [facility] Work Phone: Start: 03-30-2022 Iadna gardnerella vaginalis direct probe tq GARDNERELLA VAG, NUCLEIC ACID DIR PROBE ([id number]) Start: 30-Mar-2022 15:44 Request [facility]; [facility] @ [facility] Work Phone: Start: 03-30-2022 Iadna vikki specie s amplified probe tq Vikki Sp, DNA Probe, Amplified ([id number]) Start: 30-Mar-2022 15:44 Request [facility]; [facility] @ [facility] Work Phone: Start: 03-08-2022 End: 03-08-2022 Patient encounter procedure 03/08/2022 Office Visit Dermatology Mani Schaffer MD [address] [address] [facility] Start: 02-24-2022 End: 02-24-2022 LAPAROSCOPY ECTOPIC LAPAROSCOPY ECTOPIC MISSED AB 02/24/2022 9:13 AM EDT [facility] Start: 12-07-2021 End: 12-07-2021 Patient encounter procedure 12/07/2021 Initial consult Dermatology Mani Schaffer MD [address] [address] [facility] Start: 09-26-2021 End: 09-26-2021 Screening mammography bi 2-view breast inc cad MAMMOGRAM, SCREENING ([id number]) Date: 26-Sep-2021 [facility]; Armaan Hernandez Work Phone: Start: 08-01-2021 COVID-19 Vaccine (3 - Booster for Pfizer series) COVID-19 Vaccine (3 - Booster for Pfizer series) [facility] Start: 05-27-2021 HPV Vaccine (2 - 3-d ose SCDM series) HPV Vaccine (2 - 3-dose SCDM series) [facility] Start: 05-27-2021 HPV Vaccines (2 - 3-dose SCDM series) HPV Vaccines (2 - 3-dose SCDM series) [facility] Start: 04-26-2021 COVID-19 Vaccine (3 - Booster for Pfizer series) COVID-19 Vaccine (3 - Booster for Pfizer series) [facility] Start: 04-26-2021 COVID-19 Vaccine (3 - Pfizer series) COVID-19 Vaccine (3 - Pfizer series) [facility] Start: 04-26-2021 Influenza vaccination [facility] Start: 03-01-2021 COVID-19 Vaccine (2 - Pfizer 2-dose series) COVID-19 Vaccine (2 - Pfizer 2-dose series) [facility] Start: 03-01-2021 End: 03-01-2021 ambulatory 03/01/2021 Immunization Primary Care Nona Yung MD [address] [place] [address] [phone] [facility] Start: 04-26-2020 Influenza vaccinatio n given Sequential Influenza Vaccine (Season Ended) [facility] Start: 09-10-2019 Adolescent depressio n screening assessment Depression Screening [facility] Start: 09-10-2019 Hepatitis C screening Hepatitis C Sc reening [facility] Start: 09-10-2019 HIV screening HIV Screening [facility] Start: 09-10-2019 Lipid panel Cholesterol Sc reening (Lipid Panel) [facility] Start: 09-10-2019 Social Influencers o f Health Screening Social Influencers of Health Screening [facility] Start: 04-26-2019 Influenza vaccinatio n given [facility] Start: 02-23-2019 End: 02-23-2019 Office Visit 02/23/2019 Office Visit Orthopedic Surgery David Tucker, DPM [address] [place] [address] [phone] [facility] Start: 04-26-2018 Influenza vaccination SEQUENTI AL INFLUENZA VACCINE (#1) [facility] [facility] Start: 2003 Screening for malign ant neoplasm of cervix [facility] Start: 2001 Hepatitis A Vaccines (1 of 2 - Risk 2-dose series) Hepatitis A Vaccines (1 of 2 - Risk 2-dose series) [facility] Start: 2001 Hepatitis B Vaccine (1 of 3 - 19+ 3-dose series) Hepatitis B Vaccine (1 of 3 - 19+ 3-dose series) [facility] Start: 2000 Anxiety Screening Anxiety Screening [facility] Start: 2000 Depression Screening Depression Scre ening [facility] Start: 2000 Hepatitis C screening Hepatitis C Sc reening [facility] Start: 2000 HIV screening HIV Screening [facility] Start: 1997 HIV screening HIV Screening [facility] Start: 1994 Depression screening using PHQ-9 (Patient Health Questionnaire 9) score [facility] Start: 1988 Pneumococcal Vaccine : Ped or At-Risk (1 - PCV) Pneumococcal Vaccine: Ped or At-Risk (1 - PCV) [facility] Start: 1988 Pneumococcal Vaccine : Ped or At-Risk (1 of 2 - PPSV23) Pneumococcal Vaccine: Ped or At-Risk (1 of 2 - PPSV23) [facility] Start: 1988 Pneumococcal Vaccine : Pediatrics (0 to 5 Years) and At-Risk Patients (6 to 64 Years) (1 - PCV) Pneumococcal Vaccine: Pediatrics (0 to 5 Years) and At-Risk Patients (6 to 64 Years) (1 - PCV) [facility] Start: 1985 History and physical examination, annual for health maintenance Wellness Visit [facility] Start: 1983 Hepatitis A Vaccines (1 of 2 - Risk 2-dose series) Hepatitis A Vaccines (1 of 2 - Risk 2-dose series) [facility] Start: 1982 Hepatitis B Vaccines (1 of 3 - 3-dose series) Hepatitis B Vaccines (1 of 3 - 3-dose series) [facility] Start: 1982 Screening for malign ant neoplasm of cervix PAP SMEAR [facility] Start: 1982 Tetanus vaccination [facility] End: 04-14-2020 Assay of lead LEAD INDUSTRIAL EXPOSURE PANEL Lab Routine Once for 1 Occurrences starting 04/14/2020 until 04/14/2020 [facility], [place] Comment on above: Once for 1 Occurrenc es starting 04/14/2020 until 04/14/2020 Assay of lead LEAD INDUSTRIAL EXPOSURE PANEL Lab Routine 04/14/2020 12:45 PM EDT [place], [place] End: 12-07-2022 Creatinine [Mass/volume] in Serum or Plasma Creatinine, serum Lab Routine Encounter for long-term (current) use of high-risk medication 1 Occurrences starting 12/07/2021 until 12/07/2022 [facility] Comment on above: 1 Occurrences starti ng 12/07/2021 until 12/07/2022 Pathology study Tissue exam Path ology and Cytology Timed Ectopic , unspecified location, unspecified whether intrauterine present Release Upon Ordering for 1 Occurrences starting 02/24/2022 [facility] Work Phone: Comment on above: Release Upon Orderin g for 1 Occurrences starting 02/24/2022 End: 12-07-2022 Potassium [Moles/volume] in Serum or Plasma Potassium Level Lab Routine Encounter for long-term (current) use of high-risk medication 1 Occurrences starting 12/07/2021 until 12/07/2022 [facility] Work Phone: Comment on above: 1 Occurrences starti ng 12/07/2021 until 12/07/2022 XR Shoulder Left 2+ Views (Standard) XR Shoulder Left 2+ Views (Standard) Imaging [facility] 02/21/2020 7:42 AM EDT [facility] Immunizations Immunization Date Immunization Notes Care Provider Niki spann 04-29-2021 Human Papillomavirus 9-valent vaccine John Koehler Work Phone: [facility]; [facility] Work Phone: 04-29-2021 HPV, unspecified formulation Tigre Song DO Work Phone: [facility] 03-01-2021 Pfizer SARS-CoV-2 Vaccination Fazal Ferrari RN [facility] 02-08-2021 Pfizer SARS-CoV-2 Vaccination Senait Minaya LPN [facility] 06-19-2017 influenza virus vacc ine, unspecified formulation Braeden Bains PLANNER CHIEF Work Phone: [facility]; [address] Work Phone: Comment on above: Declined flu vaccine . 09-20-1995 measles, mumps and rubella virus vaccine John Koehler Work Phone: [facility]; [facility] Work Phone: Payers Date Payer Category Payer Unknown [id number] 2023 Blue Cross Blue Shield [place] ([place] BCBS [facility] HMO [id number] 2023-Present [address] [place] [address] [id number] 2023 Unknown [id number] 2021 Medicaid FORMERLY [facility] MEDICAID ADVANTAGE [facility] MEDICAID ADVANTAGE [id number] 2021-Present [address] [place] [address] [id number] 2019 Unknown [employer] [place] [employer] PLAN xxxxxxxxxxxx 2019-Present xxxxxxxxxxxx [id number] 2019 Unknown [place] [employer] [place] [employer] PLAN [id number] 2019-Present [id number]. [id number] 2019 Unknown [id number] [id number]. [id number] 2018 Medicaid [employer] MEDICAID [employer] MEDICAID xxxxxxxxxxx 2018-Present xxxxxxxxxxx [id number] 2018 Medicaid [id number] 2003 Unknown [id number] 1982 Unknown [id number] 2.16.840.1.882730.3.579.2. 903 1982 Unknown [id number] 2.16.840.1.065207.3.579.2. 903 1982 Unknown [id number] 2.16.840.1.715540.3.579.2. 903 1982 Unknown [id number] 2.16.840.1.942249.3.579.2. 903 1982 Unknown [id number] 2.16.840.1.690229.3.579.5. 176 1982 Unknown [id number] 2.16.840.1.855570.3.579.2. 594 1982 Unknown [id number] 2.16.840.1.302922.3.579.2. 594 1982 Unknown [id number] 2.16.840.1.153055.3.579.2. 594 1982 Unknown [id number] 2.16.840.1.927845.3.579.2. 594 1982 Unknown [id number] 2.16.840.1.373111.3.579.2. 594 1982 Unknown [id number] 2.16.840.1.833890.3.579.2. 903 1982 Unknown [id number] 2.16.840.1.337804.3.579.2. 903 1982 Unknown [id number] 2.16.840.1.658116.3.579.2. 1143 1982 Unknown [id number] 2.16.840.1.433262.3.579.2. 1143 1982 Unknown [id number] 2.16.840.1.553317.3.579.2. 1143 1982 Unknown [id number] 2.16.840.1.703815.3.579.2. 1143 1982 Unknown [id number] 2.16.840.1.624483.3.579.2. 1143 1982 Unknown [id number] 2.16.840.1.909664.3.579.2. 1143 1982 Unknown [id number] 2.16.840.1.093924.3.579.2. 902 1982 Unknown [id number] 2.16.840.1.440672.3.579.2. 902 1982 Unknown [id number] 2.16.840.1.059766.3.579.2. 902 1982 Unknown [id number] 2.16.840.1.333780.3.579.2. 902 1982 Unknown [id number] 2.16.840.1.037080.3.579.2. 902 1982 Unknown [id number] 2.16.840.1.378396.3.579.2. 727 1982 Unknown [id number] 2.16.840.1.672076.3.579.2. 1259 Social History Date Type Detail Facility Start: 06-29-2018 End: 05-25-2023 Tobacco smoking status NJIS Current every day smoker [facility] Start: 1980 Sex Assigned At Not on file [facility] Start: 06-29-2018 Alcohol Comment occasionally [facility] History of tobacco use Cigarette Smoker [facility] Start: 02-19-2019 End: 05-28-2023 Cigarettes smoked current (pack per day) - Reported [facility] Start: 04-05-2019 End: 09-17-2023 Alcohol intake Current drinker of alcohol (finding) [facility] Start: 11-27-2021 End: 12-07-2022 Exposure to SARS-CoV-2 (event) Not sure [facility] Start: 02-21-2020 End: 05-28-2023 Tobacco use and exposure Never used [facility] Start: 02-24-2022 Tobacco smoking status NHIS Never smoked tobacco [facility] Abuse: Abuse: ; Feels s afe at home. [facility]; [facility] [employer] Phone: Alcohol use: Alcohol use: ; H eavy alcohol use. [facility]; [facility] Phone: Country of Origin: Country of Or igin: ; [place]. [facility]; [facility] Phone: Illicit drug use: Illicit drug u se: ; None. [facility]; [facility] Phone: Living situation: Living situati on: ; Lives with spouse. [facility]; [facility] Phone: Marital status: Marital status: ; Single. [facility]; [facility] Phone: Pets/Animals: Pets/Animals: ; Dog. [facility]; [facility] Phone: Tobacco use: Tobacco use: ; C urrent every day smoker. [facility]; [facility] Phone: Female [facility]; [facility] Phone: Start: 04-15-2023 Tobacco smoking status NHIS Ex-smoker [facility] History of tobacco use Current smoker [facility] Start: 04-11-2022 Tobacco use panel [facility] Start: 02-19-2019 Gender identity Identifies as female gender (finding) [facility] Start: 03-01-2022 Sexual orientation Heterosexual (finding) [facility] Alcohol Use: Alcohol Use: ; D rinks wine. Drinks hard liquor. Occasional alcohol use. [facility]; [facility] Work Phone: Tobacco use: Tobacco use: ; F ormer smoker. Recently quit tobacco use. [facility]; [facility] Work Phone: Start: 05-27-2023 Alcohol intake Ex-drinker (finding) [facility] Start: 05-28-2023 Tobacco smoking status NHIS Occasional tobacco smoker [facility] Drinks hard liquor [facility]; [facility] Work Phone: Drinks wine [facility]; [facility] Work Phone: Occasional alcohol use [facility]; [facility] Work Phone: None [facility]; [facility] Work Phone: Recently quit to bacco use [facility]; [facility] Work Phone: Uses marijuana [facility]; [facility] Work Phone: Tobacco smoking stat us NJIS Tobacco smoking consumption unknown [facility] Goals Date Patient Goal Desired Activity /State Clinical Notes 07-27-2020 to 05-11-2024 Gustavo Draper, RT(R) - 01/03/2024 10:00 AM Gustavo Padilla RT(R) - 01/03/2024 9:20 AM Angelita Hoffman MD - 09/17/2023 10:47 AM [facility] InstructionsAttachmentsPatient Instructions Note Date & Type Note Facility 05-11-2024 Note ED Patient Education Note Mental and Behavioral Health Chronic Pain, Adult Chronic pain is a type of pain that lasts or keeps coming back for at least 3?6 months. You may have headaches, pain in the abdomen, or pain in other areas of the body. Chronic pain may be related to an illness, injury, or a health condition. Sometimes, the cause of chronic pain is not known. Chronic pain can make it hard for you to do daily activities. If it is not treated, chronic pain can lead to anxiety and depression. Treatment depends on the cause of your pain and how severe it is. You may need to work with a pain specialist to come up with a treatment plan. Many people benefit from two or more types of treatment to control their pain. Follow these instructions at home: Treatment plan Follow your treatment plan as told by your health care provider. This may include: ? Gentle, regular exercise. ? Eating a healthy diet that includes foods such as vegetables, fruits, fish, and lean meats. ? Mental health therapy (cognitive or behavioral therapy) that changes the way you think or act in response to the pain. This may help improve how you feel. ? Doing physical therapy exercises to improve movement and strength. ? Meditation, yoga, acupuncture, or massage therapy. ? Using the oils from plants in your environment or on your skin (aromatherapy). Other treatments may include: ? Hqtk-nnl-npdtyji or prescription medicines. ? Color, light, or sound therapy. ? Local electrical stimulation. The electrical pulses help to relieve pain by temporarily stopping the nerve impulses that cause you to feel pain. ? Injections. These deliver numbing or pain-relieving medicines into the spine or the area of pain. Medicines ? Take nizu-ixi-jdntunk and prescription medicines only as told by your health care provider. ? Ask your health care provider if the medicine prescribed to you: ? Requires you to avoid driving or using machinery. ? Can cause constipation. You may need to take these actions to prevent or treat constipation: ? Drink enough fluid to keep your urine pale yellow. ? Take aldu-riv-vecfjqi or prescription medicines. ? Eat foods that are high in fiber, such as beans, whole grains, and fresh fruits and vegetables. ? Limit foods that are high in fat and processed sugars, such as fried or sweet foods. Lifestyle ? Ask your health care provider whether you should keep a pain diary. Your health care provider will tell you what information to write in the diary. This may include: ? When you have pain. ? What the pain feels like. ? How medicines and other behaviors or treatments help to reduce the pain. ? Consider talking with a mental health care provider about how to help manage chronic pain. ? Consider joining a chronic pain support group. ? Try to control or lower your stress levels. Talk with your health care provider about ways to do this. General instructions ? Learn as much as you can about how to manage your chronic pain. Ask your health care provider if an intensive pain rehabilitation program or a chronic pain specialist would be helpful. ? Check your pain level as told by your health care provider. Ask your health care provider if you should use a pain scale. Contact a health care provider if: ? Your pain is not controlled with treatment. ? You have new pain. ? You have side effects from pain medicine. ? You feel weak or you have trouble doing your normal activities. ? You have trouble sleeping or you develop confusion. ? You lose feeling or have numbness in your body. ? You lose control of your bowels or bladder. Get help right away if: ? Your pain suddenly gets much worse. ? You develop chest pain. ? You have trouble breathing or shortness of breath. ? You faint, or another person sees you faint. These symptoms may be an emergency. Get help right away. Call 911. ? Do not wait to see if the symptoms will go away. ? Do not drive yourself to the hospital. Also, get help right away if: ? You have thoughts about hurting yourself or others. Take one of these steps if you feel like you may hurt yourself or others, or have thoughts about taking your own life: ? Go to your nearest emergency room. ? Call 911. ? Call the National Suicide Prevention Lifeline at or 907. This is open 24 hours a day. ? Text the Crisis Text Line at 913311. This information is not intended to replace advice given to you by your health care provider. Make sure you discuss any questions you have with your health care provider. Document Revised: 04/03/2023 Document Reviewed: 03/06/2023 [employer] Patient Education ? 2023 [employer]. [facility] 01-03-2024 Note HNO ID: [id number] Author: GUSTAVO DRAPER RT(Prisca) Service: ? Author Type: Technologist Type: Progress Notes Filed: 01/03/2024 10:42 Note Text: Radiology Service Progress Note PATIENT NAME: Low Markham DATE OF SERVICE: January 03, 2024 TIME: 10:41 AM PATIENT IDENTITY VERIFICATION COMPLETED USING TWO (2) IDENTIFIERS: Name and Date of confirmed by patient verbally. FALL SCREENING: Has the patient had 2 falls in the last year or 1 fall with injury or currently using an Ambulatory Assistive Device (Walker, Cane, Wheelchair, Crutches, etc.)? No PATIENT GENDER DATA: Female. status: : No status: NO. PATIENT RELEVANT IMPLANT DATA REVIEWED: Not Applicable PATIENT PRESENTS WITH AN IMPLANTABLE OR ATTACHED GROUND LAYER: No RADIOLOGY DEPARTMENT: MR; Exam(s) Completed: Lower MSK: Knee, right PERIPHERAL IV DATA: Not applicable SIGNED BY: RT Cortney(R) January 03, 2024 10:41 AM [facility] 01-03-2024 Note HNO ID: [id number] Author: GUSTAVO DRAPER RT(R) Service: ? Author Type: Technologist Type: Progress Notes Filed: 01/03/2024 10:41 Note Text: Radiology Service Progress Note PATIENT NAME: Low Markham DATE OF SERVICE: January 03, 2024 TIME: 10:40 AM PATIENT IDENTITY VERIFICATION COMPLETED USING TWO (2) IDENTIFIERS: Name and Date of confirmed by patient verbally. FALL SCREENING: Has the patient had 2 falls in the last year or 1 fall with injury or currently using an Ambulatory Assistive Device (Walker, Cane, Wheelchair, Crutches, etc.)? No PATIENT GENDER DATA: Female. status: : No status: NO. PATIENT RELEVANT IMPLANT DATA REVIEWED: Not Applicable PATIENT PRESENTS WITH AN IMPLANTABLE OR ATTACHED GROUND LAYER: No RADIOLOGY DEPARTMENT: MR; Exam(s) Completed: Spine: Lumbar spine PERIPHERAL IV DATA: Not applicable SIGNED BY: RT Cortney(R) January 03, 2024 10:40 AM [facility] 01-03-2024 History of Present illness Narrative Radiology Service Progress Note PATIENT NAME: Low Markham DATE OF SERVICE: January 03, 2024 TIME: 10:41 AM PATIENT IDENTITY VERIFICATION COMPLETED USING TWO (2) IDENTIFIERS: Name and Date of confirmed by patient verbally. FALL SCREENING: Has the patient had 2 falls in the last year or 1 fall with injury or currently using an Ambulatory Assistive Device (Walker, Cane, Wheelchair, Crutches, etc.)? No PATIENT GENDER DATA: Female. status: : No status: NO. PATIENT RELEVANT IMPLANT DATA REVIEWED: Not Applicable PATIENT PRESENTS WITH AN IMPLANTABLE OR ATTACHED GROUND LAYER: No RADIOLOGY DEPARTMENT: MR; Exam(s) Completed: Lower MSK: Knee, right PERIPHERAL IV DATA: Not applicable SIGNED BY: RT Cortney(R) January 03, 2024 10:41 AM documented in this encounter [facility] 01-03-2024 History of Present illness Narrative Radiology Service Progress Note PATIENT NAME: Low Markham DATE OF SERVICE: January 03, 2024 TIME: 10:40 AM PATIENT IDENTITY VERIFICATION COMPLETED USING TWO (2) IDENTIFIERS: Name and Date of confirmed by patient verbally. FALL SCREENING: Has the patient had 2 falls in the last year or 1 fall with injury or currently using an Ambulatory Assistive Device (Walker, Cane, Wheelchair, Crutches, etc.)? No PATIENT GENDER DATA: Female. status: : No status: NO. PATIENT RELEVANT IMPLANT DATA REVIEWED: Not Applicable PATIENT PRESENTS WITH AN IMPLANTABLE OR ATTACHED GROUND LAYER: No RADIOLOGY DEPARTMENT: MR; Exam(s) Completed: Spine: Lumbar spine PERIPHERAL IV DATA: Not applicable SIGNED BY: RT Cortney(R) January 03, 2024 10:40 AM documented in this encounter [facility] 09-17-2023 History of Present illness Narrative HPI Patient is a 43 y.o. year old female, complaining of pain behind her left ear onset yesterday. States she noticed an abscess in the area last night. States it is painful to touch. Denies any known trauma prior to onset. Denies any fever. No nausea or vomiting. No additional complaints today. Review of Systems All other systems reviewed and are negative except as noted. Nursing triage notes were reviewed by me and I agree. Past Medical History: Diagnosis Date Hypertension Past Surgical History: Procedure Laterality Date DILATION AND CURETTAGE OF UTERUS SALPINGECTOMY Right Allergies Allergen Reactions Bee Venom Protein (Honey Bee) Angioedema Reports facial swelling as a child with close contact with a bee . Mom reports that patient wasn't stung. Latex Penicillins Hives Not sure of the reaction. She was told in the past that she is allergic. Social History Socioeconomic History Marital status: Single Spouse name: Not on file Number of children: Not on file Years of education: Not on file Highest education level: Not on file Occupational History Not on file Tobacco Use Smoking status: Some Days Packs/day: 0.25 Years: 15.00 Additional pack years: 0.00 Total pack years: 3.75 Types: Cigarettes Smokeless tobacco: Never Vaping Use Vaping Use: Never used Substance and Sexual Activity Alcohol use: Yes Drug use: Not Currently Sexual activity: Yes Other Topics Concern Not on file Social History Narrative Not on file Home Medications cholecalciferol (VITAMIN D-3) 25 mcg (1,000 unit) tablet Take 1 tablet (1,000 Units total) by mouth 1 (one) time each day. cyclobenzaprine (FLEXERIL) 10 mg tablet Take 1 tablet (10 mg total) by mouth 2 (two) times a day if needed for muscle spasms. lisinopril-hydroCHLOROthiazide (PRINZIDE,ZESTORETIC) 20-12.5 mg per tablet Take 1 tablet by mouth 1 (one) time each day. naproxen sodium (Aleve) 220 mg tablet Take 1 tablet (220 mg total) by mouth every 12 (twelve) hours if needed for mild pain. OTC oxyCODONE (ROXICODONE) 5 mg immediate release tablet Take 1 tablet (5 mg total) by mouth every 4 (four) hours if needed (Breakthrough pain). Max Daily Amount: 30 mg Physical Exam Visit Vitals BP (!) 170/76 Pulse 98 Temp 36.5 C (97.7 F) (Oral) Resp 16 Ht 1.651 m (65 ) Wt 108 kg (238 lb) SpO2 97% BMI 39.61 kg/m OB Status Having periods Smoking Status Some Days BSA 2.13 m CONSTITUTIONAL: Well-appearing and well-nourished. HEAD: Normocephalic, atraumatic. EYES: No conjunctival injection, no icterus. EARS: External ears appear normal. NOSE: Nose appears normal. No rhinorrhea. NECK: Trachea midline. RESPIRATORY: Normal chest excursion with respiration, no stridor. CARDIOVASCULAR: Regular rhythm. No cyanosis. GASTROINTESTINAL: Abdomen soft, non-distended, NEUROLOGICAL: Awake, alert and oriented. PSYCHOLOGICAL: The patient's mood and manner are appropriate. Grooming and personal hygiene are appropriate. INTEGUMENTARY: Warm and dry. No rash noted. Behind the patient's left ear there is a tender spot it is not erythematous. There is some mild swelling there compared to the other side. I do not detect fluctuance. MSK: no deformity Medical Decision Making No orders to display Patient appears to have an early cellulitis behind her left ear. I do not think this is consistent with. Patient is not having difficulty with hearing or balance. There is no tenderness to the mastoid prominence inferior to this area. There is no tenderness to traction of the auricle considered and attempted drainage but I do not feel a discrete abscess at this time and I do not feel the drainage would be successful. I think the patient can be treated as an outpatient with Keflex I do not think antibiotics are necessary although I did consider them at this time. The patient will be discharged home on oral antibiotics. Labs Reviewed - No data to display Medications cephalexin (KEFLEX) capsule 500 mg (has no administration in time range) Clinical Impressions as of 09/17/23 1120 Cellulitis of head except face Impression 1. Cellulitis of head except face Procedures @PROCEDURES@ Papito Hoffman MD 09/17/23 1121 documented in this encounter [facility] 05-28-2023 Hospital Discharge instructions Mary Perez DO - 05/28/2023 7:21 PM EDT Please continue taking your medications as previously prescribed. Please call your PCP in the next 1 to 2 days to arrange close follow-up in the outpatient setting. Return to the ED for reevaluation of any worse or concerning symptoms including worsening chest pain, shortness of breath, or any episodes of passing out. The following attachments cannot be sent through Care Everywhere.Chest Pain (Serbian)documented in this encounter [facility] 05-28-2023 History of Present illness Narrative [facility] Patient Name: Low Markham Initial Evaluation: 05/28/2023 : 1980 Patient's PCP: Floresita Jenkins PIT RAFI: SHARAD Dhaliwal PIT Evaluation Note Low Markham is a 42 y.o. female who presents with chief complaint of chest pain, shortness of breath, weakness, headache. Patient states that her symptoms have been going on for the last several days. She has had increased stress recently with the recent passing of her father. Patient states that she takes lisinopril for blood pressure, but her pressure has been close to the 200s for the last several days as well. Patient has never seen a accounting bookkeeper before she denies fever, chills, nausea, vomiting. We will obtain CBC, BMP, troponin, EKG, BNP and the patient will be seen on the major side of the department. Vitals are as noted below: Vitals: 05/28/23 1405 BP: Pulse: Resp: 16 Temp: SpO2: PIT process initiated and next provider will perform detailed history and physical exam. Chief Complaint Patient presents with Chest Pain Pt has chest pain that has been increasing since night Shortness of Breath Hypertension vision changes Pt states that she has white floating spots that come and go History of Present Illness: Low Markham is a 42 y.o. female who presents to the ED via private vehicle from home for evaluation of chest pain, shortness of breath, and elevated blood pressure. The patient was initially seen by the provider in triage and work-up was ordered. When I went to evaluate the patient myself she is very frustrated about the wait time in the emergency department and refuses to discuss her symptoms with me. She tells me you can read my chart . She tells me she has been seen in the emergency department multiple times for the symptoms in the past couple of days and that I should be able to read this information in her medical chart. PHYSICAL EXAM: ED Triage Vitals Temp Heart Rate Resp BP 05/28/23 1403 05/28/23 1403 05/28/23 1405 05/28/23 1403 36.8 C (98.2 F) 97 16 (!) 195/107 SpO2 Temp Source Heart Rate Source Patient Position 05/28/23 1403 05/28/23 1403 -- -- 93 % Oral BP Location FiO2 (%) -- -- CONSTITUTIONAL: Well-appearing. No apparent distress. HENT: Mucous membranes moist. CARDIOVASCULAR: No cyanosis. PULMONARY/THORAX: Patient is speaking in full sentences without any evidence of increased work of breathing. No signs of respiratory distress. MUSCULOSKELETAL: Moves all extremities spontaneously. No pedal edema. NEURO: The patient is alert and oriented. No gross neurologic deficits appreciated. ED STUDIES: Labs Reviewed BASIC METABOLIC PANEL - Abnormal Result Value Sodium 139 Potassium 3.9 Chloride 106 CO2 26 Anion Gap 7 Glucose 141 (*) BUN 11 Creatinine 0.66 eGFR 114 BUN/Creatinine Ratio 16.7 Calcium 8.9 B-TYPE NATRIURETIC PEPTIDE - Normal BNP 56 Narrative: <100: CHF is unlikely 100-400: Possible left ventricular dysfunction-unlikely acute decompensation >400: Suspicious for decompensated heart failure. TROPONIN I HIGH SENSITIVITY - Normal High Sensitivity Troponin I 6 CBC WITH AUTO DIFFERENTIAL - Normal WBC 8.3 RBC 4.06 Hemoglobin 13.0 Hematocrit 39.0 MCV 96.1 MCH 32.0 MCHC 33.3 RDW 12.5 Platelets 321 MPV 10.8 Neutrophils Relative 57.3 Lymphocytes Relative 32.0 Monocytes Relative 5.9 Eosinophils Relative 4.0 Basophils Relative 0.6 Immature Granulocytes Relative 0.2 Neutrophils Absolute 4.73 Lymphocytes Absolute 2.65 Monocytes Absolute 0.49 Eosinophils Absolute 0.33 Basophils Absolute 0.05 Immature Granulocytes Absolute 0.02 CBC AND DIFFERENTIAL Narrative: The following orders were created for panel order CBC and differential. Procedure Abnormality Status --------- ------ CBC auto differential[[id number]] Normal Final result Please view results for these tests on the individual orders. ED COURSE: Visit Vitals BP (!) 195/107 Pulse 86 Temp 36.8 C (98.2 F) (Oral) Resp 17 ED Course as of 05/28/231921e May 28, 2023 1750 EKG-NSR, rate 88. Normal axis. Normal intervals. No acute ST-T wave segment changes. Compared to prior EKG from yesterday, which shows a sinus tachycardia. No other changes noted. [LW] ED Course User Index [LW] Mary Perez DO Clinical Impressions as of 05/28/231921 Chest pain, unspecified type In summary, Low Markham is a 42 y.o. female who presents to the ED for above stated complaint. When I enter the patient's room, she is visibly upset and yelling. She is upset that she has been in the emergency department for 5.5 hours for her current complaint. I did try to explain to the patient that we have had multiple trauma alerts and stroke alerts, which is why she was not seen by physician sooner. I did review the provider in triage note and work-up ordered by the provider in triage which is unremarkable. I did try to discuss the patient's symptoms at bedside but she declines further discussion. She states that she would like to go home and follow-up with her doctor as she does not feel like we are helping her and we are wasting her time. The patient was not amenable to a full physical exam and a limited exam was provided. As the patient has been seen in the emergency department for this complaint more than once and does have a normal work-up again, I do feel she is stable for outpatient follow-up with her PCP. Work note was provided at her request. Return precautions for the ED were discussed. She did not have questions or concerns at time of discharge. DIAGNOSTIC IMPRESSION: 1. Chest pain, unspecified type DISPOSITION: Discharge Mary Perez DO 05/28/231923 documented in this encounter [facility] 05-27-2023 History of Present illness Narrative Pt eloped without telling triage with her IV. RN called pt on phone and pt states she is @ [employer]. Patient Name: Low Markham Initial Evaluation: 05/27/2023 : 1980 Patient's PCP: Floresita Jenkins [facility] Physician Cristiane Brooks PA-C, [facility] Evaluation Note Low Markham is a 42 y.o. female with a history of HTN who presents with chief complaint of left-sided chest pain. Patient states that she was sitting at home when she suddenly developed sharp pain on the left side of her chest. States that folic her heart was racing and she was going to pass out. Patient states that she got diaphoretic. Present she was evaluated for similar symptoms 2 days ago and was discharged home with naproxen however this medications not helping her. Denies any shortness of breath. She has no additional concerns this time. Brief Exam General- NAD, Resp-nonlabored breathing, breath sounds are clear and equal bilaterally Cardiac-normal rate, extremities are well-perfused Brief Plan Vitals are as noted below: Vitals: 05/27/232042 BP: (!) 181/98 Pulse: 103 Resp: 18 Temp: 36.4 C (97.5 F) SpO2: 95% Pit process initiated and next physician will perform detailed history and physical exam. documented in this encounter [facility] 05-25-2023 Emergency department Note Bed: AP-46 Expected date: Expected time: Means of arrival: Comments: Triage, clean [facility] 05-25-2023 Miscellaneous Notes Bed: AP-46 Expected date: Expected time: Means of arrival: Comments: Triage, clean documented in this encounter [facility] 05-25-2023 History of Present illness Narrative Images from the original note were not included. Low Markham is a 42 y.o. female with a past medical history of hypertension presenting to the emergency department for evaluation of chest pain this been going on for the past 2 days but worse today. Patient reports a central constant squeezing-like pain. Occasional radiation in the left shoulder. Denies nausea, vomiting, shortness of breath, calf pain. Denies history of cardiac disease. Father from heart disease in his 60s. Admits to smoking. Denies drug use. Drank alcohol yesterday evening. No exacerbating or alleviating factors. REVIEW OF SYSTEMS: A ten point review of systems was conducted and was negative aside from as noted in the HPI and/or in other provider documentation. Past Medical History: Diagnosis Date Hypertension Past Surgical History: Procedure Laterality Date DILATION AND CURETTAGE OF UTERUS SALPINGECTOMY Right Allergies Allergen Reactions Bee Venom Protein (Honey Bee) Angioedema Reports facial swelling as a child with close contact with a bee . Mom reports that patient wasn't stung. Latex Penicillins Hives Not sure of the reaction. She was told in the past that she is allergic. Social History Socioeconomic History Marital status: Single Spouse name: Not on file Number of children: Not on file Years of education: Not on file Highest education level: Not on file Occupational History Not on file Tobacco Use Smoking status: Every Day Packs/day: 0.25 Years: 15.00 Additional pack years: 0.00 Total pack years: 3.75 Types: Cigarettes Smokeless tobacco: Never Vaping Use Vaping Use: Never used Substance and Sexual Activity Alcohol use: Yes Drug use: Never Sexual activity: Yes Other Topics Concern Not on file Social History Narrative Not on file Home Medications oxyCODONE (ROXICODONE) 5 mg immediate release tablet Take 1 tablet (5 mg total) by mouth every 4 (four) hours if needed (Breakthrough pain). Max Daily Amount: 30 mg Physical Exam Physical Exam Visit Vitals BP (!) 169/97 Pulse 98 Temp 36.6 C (97.9 F) (Oral) Resp 21 Ht 1.651 m (65 ) Wt 105 kg (231 lb 11.3 oz) SpO2 96% BMI 38.56 kg/m OB Status Unknown Smoking Status Every Day BSA 2.1 m CONSTITUTIONAL: Patient appears uncomfortable. NAD EYES: PERRL. EOMI. No conjunctival injection. No icterus. HENT: External ears normal, external nose normal. Mouth and throat clear. Neck supple non-tender. Head atraumatic. RESPIRATORY: Normal chest excursion with respiration. Clear to auscultation, no wheezes. CARDIOVASCULAR: Regular rhythm. No murmurs. No cyanosis. No peripheral edema. CHEST WALL: Chest pain is reproducible on exam with palpation of the left chest wall. GASTROINTESTINAL: Abdomen soft, non-distended, non-tender, no guarding or rigidity. NEUROLOGICAL: Awake, alert and oriented. CN II-XII grossly intact, no extremity weakness or sensory deficit. PSYCHOLOGICAL: The patient's mood and manner are appropriate. Grooming and personal hygiene are appropriate. INTEGUMENTARY: Warm and dry. No rash noted. MUSCULOSKELETAL: There are no deformities noted, grossly normal strength. Medical Decision Making Patient is a 42 y.o. female presenting to the ED for evaluation of chest pain. He is hypertensive. She underwent work-up in which her EKG showed sinus tach but no ischemic change. Troponin and delta troponin within normal range. On examination patient has reproducible left-sided chest pain. Seems to be more so a costochondritis versus musculoskeletal type pain rather than chest pain. Improved after analgesia. Blood pressure improved slightly to 169/97. Discussed with patient recommendations for follow-up with her primary care physician to reassess her blood pressure to see if she needs to be on antihypertensive medications. Recommended anti-inflammatories for chest pain and return precautions. Independent interpretation of EKG, rhythm strip, or radiology study? Yes, EKG: My interpretation is EKG performed at 11: 23 shows sinus tachycardia at 109 bpm. Normal axis. Intervals within normal limits. No STEMI. Clinical Impressions as of 05/25/23 1450 Chest wall pain DIAGNOSTIC IMPRESSION: 1. Chest wall pain DISPOSITION: Discharge Trey Milligan DO 05/25/23 1148 Trey Milligan, 05/25/23 1155 Trey Milligan, 05/25/23 1156 Trey Milligan, 05/25/23 1443 Trey Milligan, 05/25/23 1450 documented in this encounter [facility] 04-15-2023 Instructions Adrián Talbot DO - 04/15/2023 8:45 PM EDT Follow up with your PCP in 7 days or sooner if not improving. Recommend discussing physical therapy with your PCP Go to Emergency Room immediately for worsening symptoms or development of new concerning symptoms. See handout given today on tennis elbow Elevate, and rest affected joint as instructed Apply ice to the affected joint 3-4 times daily for the next 3-4 days Cold packs (bagged frozen peas or corn) work well for pain and/or swelling. If you use ice, always place a towel between the ice and your skin (to avoid frostbite) or use an ice bag. Apply ice/cold pack for 10-20 minutes at a time, with at least 20 minutes between applications. A prescription for Prednisone or other oral steroids was given today. Please be aware that your glucose levels will be elevated while on this medication but should return to baseline after you stop the medication. Monitor your glucose level closely if you are diabetic. Steroids can offer side effects of anxiety, depression, nervousness, jitteryness, insomnia, stomach upset, stomach ulceration, worsening blood sugar or blood pressure, among others Avoid taking Ibuprofen, Meloxicam or other similar medications such as Advil, Naprosyn, Aleve while taking prednisone. You may take Tylenol up to 1000 mg every 8 hours for pain or fever if needed while on prednisone Please fill your prescriptions and take all medications as directed even if you begin to feel better before you run out of medicine. Risks, benefits, and side effects of medicine(s) discussed, go to ER for severe reaction. The following attachments cannot be sent through Care Everywhere.Elbow: Tennis (Serbian)documented in this encounter [facility] 04-15-2023 History of Present illness Narrative Images from the original note were not included. Patient Name: [facility] Location: [facility] [address] [address] Date Of : Date Of Visit: 1980 04/15/2023 MRN# Provider: [id number] Adrián Talbot DO Chief Complaint Patient presents with Elbow Pain States has a new job at [employer] and she is doing repetitive work that's making her L elbow hurt. NKI. Pain x 1 mos. Has been using a compression sleeve. States needs a work note for today and tomorrow so she can rest her elbow Assessment & Plan Diagnoses and all orders for this visit: Lateral epicondylitis of left elbow - predniSONE (DELTASONE) 10 MG tablet; Take 4 tabs PO QD x 3d, then 2 tabs PO QD x 2, then 1 tab PO QD x 2d then stop . Return for Follow up with your PCP. Medical Decision Making Low Markham is a 42 y.o. female presents with complaint(s) of persisting left elbow pain due to repetitive duties at her new job with [employer]. Care Everywhere review does show that patient was seen earlier today a few hours ago at a [facility] and was recommended to go on light duty. Patient is here requesting a work note to be off of work even though she is ready been given an excuse for light duty. Suspect lateral epicondylitis for which a prescription of prednisone taper will be provided since Tylenol ibuprofen is not helping. Patient was advised to continue to wear her elbow band and to return to work with light duty. Work excuse with light duty for the next 7 days was provided. Home care and follow up instructions were reviewed with pt. Pt was given the opportunity ask questions. All questions were answered. Patient gave verbal understanding and agreement with this plan. This note was partially created using voice recognition software and is inherently subject to errors including those of syntax and sound-alike substitutions which may escape proofreading. In such instances, original meaning may be extrapolated by contextual derivation Additional Clinical Comments Discussed over the counter medications for symptomatic management and side effects of medications. Recommended taking all medications with food and to stop medications if they develop any signs of an allergic reaction. Educated patient and/or guardian about signs and symptoms that would warrant further immediate evaluation. Recommended that they should return to urgent care, make an appointment with their family physician, or go to the emergency room if symptoms persist or get acutely worse. Recommended follow up within the next week with their PCP or to get established with a PCP soon in order to follow up appropriately. Subjective Low Markham is a 42 y.o. female presents with Elbow Pain ( has a new job at [employer] and she is doing repetitive work that's making her L elbow hurt. NKI. Pain x 1 mos. Has been using a compression sleeve. needs a work note for today and tomorrow so she can rest her elbow ) Low Myers I here for L elbow pain x 1 week. 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 She is right-handed primarily. She was seen at the medical clinic at her [employer] plant with recommendations for icing/heat/Tylenol/ibuprofen use. They also recommended an elbow band which she has been using without relief. Patient was seen in the ER at [place] earlier today was recommended to for return to work with light duty but was not given a note to present to her employer. She was also recommended take Tylenol ibuprofen which she has been taking without relief. Review Of Systems Review of Systems Constitutional: Negative for chills and fever. Musculoskeletal: Positive for arthralgias. Skin: Negative for color change and wound. Neurological: Negative for numbness. All other systems reviewed and are negative. Medical History Past Medical History: Diagnosis Date Back pain History of dental problems Hypertension There is no problem list on file for this patient. Past Surgical History: Procedure Laterality Date DILATION AND CURETTAGE OF UTERUS TUBAL LIGATION ALLERGIES/INTOLERANCES Allergies: Bee pollen, Bee venom protein (honey bee), and Penicillins Social History Social History Socioeconomic History Marital status: Single Tobacco Use Smoking status: Former Packs/day: .5 Types: Cigarettes Smokeless tobacco: Never Vaping Use Vaping Use: Every day Substance and Sexual Activity Alcohol use: Yes Comment: occasionally Drug use: No Family History Family History Problem Relation Age of Onset Skin cancer Neg Hx MEDICATIONS PRIOR TO VISIT Current Outpatient Medications on File Prior to Visit Medication Sig Dispense Refill lisinopriL-hydrochlorothiazide (PRINZIDE,ZESTORETIC) 20-12.5 mg per tablet Take by mouth daily with dinner . losartan (COZAAR) 25 MG tablet Take 1 (one) tablet (25 mg total) by mouth daily . 30 tablet 0 spironolactone (ALDACTONE) 100 MG tablet Take 1 (one) tablet (100 mg total) by mouth 2 (two) times a day . 60 tablet 3 albuterol 90 mcg/actuation inhaler Inhale 2 (two) puffs every 6 (six) hours as needed for wheezing . 1 Inhaler 0 gabapentin (NEURONTIN) 300 MG capsule Take 1 (one) capsule (300 mg total) by mouth 3 (three) times a day . meloxicam (MOBIC) 7.5 MG tablet Take 1 (one) tablet (7.5 mg total) by mouth daily . [DISCONTINUED] benzoyl peroxide (BENZAC AC) 5 % external wash Use as a wash to the affected areas once daily . (Patient not taking: Reported on 04/15/2023 .) 226 g 11 [DISCONTINUED] clindamycin (CLEOCIN T) 1 % lotion AAA QD . (Patient not taking: Reported on 04/15/2023 .) 60 mL 3 [DISCONTINUED] cyclobenzaprine (FLEXERIL) 10 MG tablet Take 1 (one) tablet (10 mg total) by mouth 3 (three) times a day as needed for muscle spasms . (Patient not taking: Reported on 04/15/2023 .) 21 tablet 0 [DISCONTINUED] fluticasone propionate (FLONASE) 50 mcg/actuation nasal spray Instill 2 (two) sprays into each nostril daily . (Patient not taking: Reported on 04/15/2023 .) 16 g 0 No current facility-administered medications on file prior to visit. Objective Physical Exam BP (!) 187/100 Pulse 81 Temp 98 F (36.7 C) (Tympanic) Resp 16 Wt 106.1 kg (234 lb) SpO2 97% BMI 40.17 kg/m Vitals: 04/15/23202004/15/232023 BP: (!) 177/100 (!) 187/100 Pulse: 81 Resp: 16 Temp: 98 F (36.7 C) TempSrc: Tympanic SpO2: 97% Weight: 106.1 kg (234 lb) Vision/Hearing Exam:No results found. Physical Exam Vitals and nursing note reviewed. Constitutional: General: She is not in acute distress. Appearance: Normal appearance. She is well-developed. She is obese. She is not ill-appearing, toxic-appearing or diaphoretic. HENT: Head: Normocephalic and atraumatic. Eyes: General: No scleral icterus. Conjunctiva/sclera: Conjunctivae normal. Cardiovascular: Pulses: Normal pulses. Pulmonary: Effort: Pulmonary effort is normal. No respiratory distress. Musculoskeletal: General: Tenderness present. Right elbow: Normal. Left elbow: No swelling or lacerations. Normal range of motion. Tenderness present in lateral epicondyle. No medial epicondyle or olecranon process tenderness. Right forearm: Normal. Left forearm: Normal. Right hand: Normal. Left hand: Normal. Skin: General: Skin is warm and dry. Capillary Refill: Capillary refill takes less than 2 seconds. Coloration: Skin is not jaundiced. Findings: No bruising, erythema or rash. Neurological: Mental Status: She is alert and oriented to person, place, and time. Psychiatric: Behavior: Behavior normal. Orders Placed This Visit No orders of the defined types were placed in this encounter. Lab Results No results found for this or any previous visit (from the past 168 hour(s)). Xray Results: No orders to display Procedure Notes Procedures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 Number of children: Not on file Years of education: Not on file Highest education level: Not on file Occupational History Not on file Tobacco Use Smoking status: Never Smoker Smokeless tobacco: Never Used Vaping Use Vaping Use: Never used Substance and Sexual Activity Alcohol use: Yes Drug use: Not on file Sexual activity: Not on file Other Topics Concern Not on file Social History Narrative Not on file Allergies Allergen Reactions Bee Venom Protein (Honey Bee) Angioedema Reports facial swelling as a child with close contact with a bee . Mom reports that patient wasn't stung. Latex Penicillins Hives Not sure of the reaction. She was told in the past that she is allergic. (Not in a hospital admission) Review of Systems: Constitutional (+as noted in HPI) Eyes (negative for vision changes) ENT (- ringing, loss of hearing) Cardiovascular (no LE edema or leg pain with walking, denies PND, orthopnea) Respiratory (no cough, SOB) Gastrointestinal (no abd pain, constipation, diarrhea) Genitourinary (- dysuria, gross hematuria) Integumentary (no rash) Musculoskeletal (+as noted in HPI) Psych: no depressed mood Objective: Physical Exam: Vitals: 02/24/22 0032 BP: (!) 192/77 Pulse: 99 Resp: 17 Temp: 36.8 C (98.2 F) SpO2: 98% Weight: 110 kg Height: 1.626 m (64 ) General: No acute distress. Well appearing. Abdomen: Soft, non-tender, non-distended Extremities: No tenderness nor erythema bilaterally Psychiatric: normal mood, behavior, speech, dress, and thought processes Labs: Latest Reference Range & Units 02/24/22 00:39 hCG Quant mIU/mL 4,340 Auto WBC 4.6 - 10.2 K/mcL 14.9 (H) RBC 3.80 - 5.10 M/mcL 4.32 Hemoglobin 12.0 - 16.0 g/dL 13.8 Hematocrit 35.0 - 45.0 % 41.7 MCV 80.0 - 97.0 FL 96.6 MCH 27.0 - 34.0 pcg 32.0 MCHC 32.0 - 36.0 g/dL 33.1 RDW 11.0 - 14.8 % 13.5 Platelets 142 - 424 K/mcL 290 MPV 6.2 - 12.1 FL 8.8 (H): Data is abnormally high A+ Imaging: The uterus measures 9.4 x 5.9 x 5.2 cm. Endometrial thickness is 1 cm. No gestational sac is seen in the endometrial cavity. Right ovary measures 65 x 34 x 32 mm and contains a hemorrhagic cyst measuring 36 mm. Medial to the right ovary there is an abnormal ringlike mass consistent with an abnormal fallopian tube containing a yolk sac and a slightly deformed gestational sac. The findings are consistent with right fallopian tubal ectopic . Left ovary measures 57 x 38 x 34 mm and contains a 28 mm cyst/follicle. No free fluid in the pelvic cul-de-sac. IMPRESSION: Ectopic in the right fallopian tube Assessment and Plan This is a 41 y.o. at 3w2d with a right sided ectopic . Right Sided Ectopic -- Hemodynamically stable -- Patient desires surgical resolution as she is unsure if she is able to return for hCG's with methotrexate. -- Risks of the surgery discussed at length with the patient. Bud Bledsoe DO [employer] Phone: 02-24-2022 History and physical note COSTUME MISTRESS CONSULT NOTE: Subjective: Chief Complaint: Pelvic pain History of Present Illness: Low Markham is a 41 y.o. at 3w1d by LMP who presents with pelvic pain which started 3 days prior. The pain initially started with intercourse 3 days prior with intercourse. Yesterday the pain worsened and was at rest. She denies any dizziness. She does have a history of a prior ectopic treated with methotrexate. battery Most recent CBC Lab Results Component Value Date WBC 14.9 (H) 02/24/2022 HGB 13.8 02/24/2022 HCT 41.7 02/24/2022 MCV 96.6 02/24/2022 PLT 290 02/24/2022 Most recent HEPC No results found for: HEPCAB OB History No obstetric history on file. History reviewed. No pertinent past medical history. History reviewed. No pertinent surgical history. Social History Socioeconomic History Marital status: Single Spouse name: Not on file Number of children: Not on file Years of education: Not on file Highest education level: Not on file Occupational History Not on file Tobacco Use Smoking status: Never Smoker Smokeless tobacco: Never Used Vaping Use Vaping Use: Never used Substance and Sexual Activity Alcohol use: Yes Drug use: Not on file Sexual activity: Not on file Other Topics Concern Not on file Social History Narrative Not on file Allergies Allergen Reactions Bee Venom Protein (Honey Bee) Angioedema Reports facial swelling as a child with close contact with a bee . Mom reports that patient wasn't stung. Latex Penicillins Hives Not sure of the reaction. She was told in the past that she is allergic. (Not in a hospital admission) Review of Systems: Constitutional (+as noted in HPI) Eyes (negative for vision changes) ENT (- ringing, loss of hearing) Cardiovascular (no LE edema or leg pain with walking, denies PND, orthopnea) Respiratory (no cough, SOB) Gastrointestinal (no abd pain, constipation, diarrhea) Genitourinary (- dysuria, gross hematuria) Integumentary (no rash) Musculoskeletal (+as noted in HPI) Psych: no depressed mood Objective: Physical Exam: Vitals: 02/24/22 0032 BP: (!) 192/77 Pulse: 99 Resp: 17 Temp: 36.8 C (98.2 F) SpO2: 98% Weight: 110 kg Height: 1.626 m (64 ) General: No acute distress. Well appearing. Abdomen: Soft, non-tender, non-distended Extremities: No tenderness nor erythema bilaterally Psychiatric: normal mood, behavior, speech, dress, and thought processes Labs: Latest Reference Range & Units 02/24/22 00:39 hCG Quant mIU/mL 4,340 Auto WBC 4.6 - 10.2 K/mcL 14.9 (H) RBC 3.80 - 5.10 M/mcL 4.32 Hemoglobin 12.0 - 16.0 g/dL 13.8 Hematocrit 35.0 - 45.0 % 41.7 MCV 80.0 - 97.0 FL 96.6 MCH 27.0 - 34.0 pcg 32.0 MCHC 32.0 - 36.0 g/dL 33.1 RDW 11.0 - 14.8 % 13.5 Platelets 142 - 424 K/mcL 290 MPV 6.2 - 12.1 FL 8.8 (H): Data is abnormally high A+ Imaging: The uterus measures 9.4 x 5.9 x 5.2 cm. Endometrial thickness is 1 cm. No gestational sac is seen in the endometrial cavity. Right ovary measures 65 x 34 x 32 mm and contains a hemorrhagic cyst measuring 36 mm. Medial to the right ovary there is an abnormal ringlike mass consistent with an abnormal fallopian tube containing a yolk sac and a slightly deformed gestational sac. The findings are consistent with right fallopian tubal ectopic . Left ovary measures 57 x 38 x 34 mm and contains a 28 mm cyst/follicle. No free fluid in the pelvic cul-de-sac. IMPRESSION: Ectopic in the right fallopian tube Assessment and Plan This is a 41 y.o. at 3w2d with a right sided ectopic . Right Sided Ectopic -- Hemodynamically stable -- Patient desires surgical resolution as she is unsure if she is able to return for hCG's with methotrexate. -- Risks of the surgery discussed at length with the patient. Bud Bledsoe DO documented in this encounter [facility] 12-07-2021 History of Present illness Narrative Patient presents for acne of the face, submammary skin, axillae, groin. Ongoing for years. Painful at times. Has tried proactive. Pigmented papules, macules notable on the face, neck, inferior abdomen, axillae today. > Acne vulgaris, hidradenitis suppurativa. Patient reports that she takes her lisinopril/hydrochlorothiazide medicine once every 2 weeks as needed for blood pressure. I am going to start her on spironolactone as a replacement with the hope that we can gain control of her acne/hidradenitis as well as improve her regular blood pressure control. Clindamycin lotion Benzoyl peroxide wash Return to clinic in 3 months Mani Schaffer MD FAABrayan Portions of this note were dictated using [employer] dictation. Please excuse any grammatical or spelling errors that may have occurred using the system. documented in this encounter [facility] 02-12-2021 Physician Hospital Discharge summary EMERGENCY DEPARTMENT DISCHARGE SUMMARY PATIENT NAME:LOW MARKHAM AGE: 40 Years SEX: Female PHONE:[id number] DOS: 02/11/2021 19:44:00 : 1980 ATTENDING PHYSICIAN:Shade Crawford MD PCP: Dilip Christensen MD CHIEF COMPLAINT: upper quad pain after drinking last night. Allergies penicillin () Problems Active Headache, migraine HTN (hypertension) Anemia DISCHARGE DIAGNOSIS: DISCHARGE INSTRUCTIONS: Gastritis, Adult ED PHYSICIAN DOCUMENTATION: History of Present Illness The patient is a?40-year-old female presents with?upper abdominal pain after heavy drinking last night. ?Symptoms all day. ?Intermittent nausea and vomiting throughout the day. ?Denies hematemesis. ?No melena or hematochezia.??Epigastric abdominal pain reported.??Denies marijuana,?states she only had a beer and a few shots last night..? Current every day smoker. ?No fevers, chills or sweats. ?No flank pain, back pain. ?No urinary or bowel complaints. ?No falls or trauma. ?No chest pain, shortness of breath, cough or palpitations.? Has a history of migraines, denies headache. ?No dizziness or lightheadedness. ?No visual disturbance. ?No?weakness, numbness or tingling. ?No neck pain or stiffness. No vaginal complaints reported.?No other complaints reported at time of initial evaluation. ? Notified by nursing staff that prior to my evaluation, patient with multiple episodes of nonbilious nonbloody emesis. ? Review of Systems ? All other systems reviewed and are negative except as noted above. ? ? Physical Exam ? ? CONSTITUTIONAL:?Appears uncomfortable, reports nausea.?Alert and oriented x3. Hemodynamically stable.?Neuro intact. ? EYES:? Pupils are equal, round and reactive to light.? Extraocular muscles are intact.? No icterus. ? EARS:? External ears appear normal.? TMs WNL. ? NOSE: The nose is normal in appearance. There is no rhinorrhea. ? NECK:? The trachea is mid-line.? The neck is supple. No crepitus.? No Meningismus. ? CARDIOVASCULAR:? The heart has a regular rate and rhythm without murmur.? Pulses are equal bilaterally and there is brisk capillary refill.? No peripheral edema. ? RESPIRATORY: There is normal chest excursion with respiration.? The lungs are clear and equal to auscultation bilaterally.? There are no rales, rhonchi, or wheezes. No crepitus. ? GASTROINTESTINAL: Abdomen soft, non-distended, epigastric tenderness to palpation, no right upper quadrant tenderness, negative Meeks sign, without rigidity.?No CVA tenderness bilaterally. ? MUSCULOSKELETAL:? There are no deformities noted in all four extremities.? Soft compartment. 2+ distal pulses, pulses intact. ? INTEGUMENTARY:? The skin appears normal for age and race.? It is warm and dry.? No rash. No petechiae or purpuric lesions are noted. ? PSYCHOLOGICAL:? The patient's mood and manner are appropriate.? Grooming and personal hygiene are appropriate. ? NEUROLOGICAL:? Patient is alert and oriented to person, place, and time. Sensory and motor functions are intact. CN 2-12 intact.?Normal gait. ? ? ? Medical Decision Making ? I saw and evaluated the patient. ? The patient's old medical records have been reviewed. ? The patient's presenting pulse oximetry was? % on room air.? This was interpreted as normal. ? The EKG was ordered and interpreted contemporaneously by the attending physician. ?Refer to the scanned ED document.? Normal sinus rhythm, 86 bpm. ?Parable 116. ?QRS 80. ?QTc 500. ?Prolonged QT noted. ?No STEMI. ? ? Patient presents with epigastric abdominal pain to palpation. Reports nausea and vomiting. States she drank?some alcohol last night.?Denies any blood in her emesis or blood in stools. No other complaints reported. Imaging discussed with the patient, she declines. States she needs fluids and symptom control. Per shared decision making, imaging deferred at this time. Labs reviewed. She has some ketones in her urine, she is hydrated in the emergency department. Her labs are largely unremarkable except for mild leukocytosis. She is afebrile, hemodynamically stable, nontoxic in appearance throughout ED stay.?P.o. challenge performed, Patient tolerated p.o.?He needs to complain of some epigastric tenderness to palpation. GI cocktail given. Patient tolerated this without difficulty.?She is offered admission, states she feels okay to go home. She is discharged home in stable and improved condition. Strict return precautions provided, all questions answered.? DC home in stable condition.?Those PCP follow-up recommended. Patient expressed understanding. ? Impression ? 1.?Gastritis ? 2. ? 3. ? ? DISPOSITION: Time of Departure From ER 02/11/2021 23:39 Discharge/Transfer From ER Home 01 MEDICATION LISTS: CURRENT MEDICATION LIST cyclobenzaprine (Flexeril 10 mg oral tablet) 1 Tab(s) By Mouth As Needed as needed for 30 Days. gabapentin (gabapentin 300 mg oral capsule) 1 Capsule (more content not included)... [facility] 10-22-2020 Physician Hospital Discharge summary EMERGENCY DEPARTMENT DISCHARGE SUMMARY PATIENT NAME:LOW MARKHAM AGE: 40 Years SEX: Female PHONE:[id number] DOS: 10/22/2020 15:55:00 : 1980 ATTENDING PHYSICIAN:Vandana Rutledge DO PCP: Dilip Christensen MD CHIEF COMPLAINT: LOWER BACK PAIN Allergies penicillin () Problems Active Headache, migraine HTN (hypertension) Anemia DISCHARGE DIAGNOSIS: DISCHARGE INSTRUCTIONS: Tailbone Injury, [id number] ED PHYSICIAN DOCUMENTATION: History of Present Illness ?EMERGENCY MEDICINE ATTENDING NOTE Vandana Schmidt. Jr. Yan, , FACEP, FAAEM ? ? TRIAGE CHIEF COMPLAINT:? LOWER BACK PAIN ? ? HISTORY OF PRESENT ILLNESS:? LOW MARKHAM ?is a? 40 Years ? Female ?who presents?with?sacrococcygeal pain. ?The patient?states she was?sitting?in a computer chair for 10 hours the other day?but was able to stand up when she started to feel pain and walk around. ?States the next day?she was?sitting but in a different area and was sitting on a metal chair and can only get up during breaks. ?She states after that?started to feel severe pain into her sacrococcygeal region. ?Does not radiate. ?She cannot?get?a comfortable position. ?She denies any numbness or tingling or weakness. ?Denies any actual injury.? She denies any urinary or?bowel complaints. ?No fevers or chills.? She states this has happened in the past but not as severe as this. ?She did?have a long drive from [place] here?as well?and had difficulty getting?situated for that?but was the passenger.? Has no other new complaints or concerns. ? REVIEW OF SYSTEMS: All systems have been reviewed and are negative unless noted in the HPI. I have reviewed the nursing triage documentation and agree unless otherwise noted below. ? PHYSICAL EXAM: VITAL SIGNS:? Vital Signs (First and Last Sets of This Visit): Date?Route?Temp?Resp ?SBP/DBP ? ? Pulse ? ? O2 Sat ? ? ? O2 Flow ? ? ?O2 Delivery 10/22/20 15:59?-?98.1?22?1 80/102?113?99? -?Room air ? PHYSICAL: CONSTITUTIONAL:?Uncomfortable-ap pearing and well-nourished.? EYES:? PERRLA.? EOMI.? No conjunctival injection.? No icterus. HENT:? External ears normal, external nose normal.? Mouth and throat clear. Neck supple non-tender. Head atraumatic. RESPIRATORY: Normal chest excursion with respiration.? Clear to auscultation bilaterally. CARDIOVASCULAR: Regular rate and rhythm. No cyanosis. No peripheral edema. GASTROINTESTINAL: Abdomen soft, non-distended, non-tender, no rebound, guarding or rigidity. Bowel sounds present. NEUROLOGICAL: Awake, alert and oriented. ?No extremity weakness or sensory deficit. PSYCHOLOGICAL: The patient's mood and manner are appropriate. Grooming and personal hygiene are appropriate. INTEGUMENTARY: Warm and dry. No rash noted. MUSCULOSKELETAL:? There are no deformities noted. ? BRIEF DIFFERENTIAL DIAGNOSES: 1. ?Coccygeal injury 2.? Sacroiliitis 3.? Sciatica ? EKG:?? None. ? RADIOLOGY: None. ? ED COURSE and MEDICAL DECISION MAKING: Pertinent Labs and Imaging studies reviewed. (See chart for details) The patient was seen and evaluated by myself.??The patient does present with?sacrococcygeal pain. ?This is likely?coccydynia?from?sitting on it?for?10 hours?a day for 2 days in a row.? It is tender to palpation. ?I do not feel that x-ray would be of benefit. ?I have given her a dose of Toradol?and Robaxin here as well as a dose of steroids. ?She will be sent home with naproxen and Robaxin. ?She otherwise looks well and has no red flags. ?She will be able to be discharged. ? PROCEDURES: None. ? FINAL IMPRESSION: Coccydynia ? DISPOSITION: Patient is discharged in stable condition. ? I have personally seen and examined this patient. I have fully participated in the care of this patient and I have reviewed and agree with all pertinent clinical information including history, physical exam, and plan. I have also reviewed and agree with the medications, allergies and past medical history section for this patient. ? ? Electronically signed by: Vandana Rutledge Jr., DO, FACEP, FAAPAT,? 10/22/2020 16:12:19 ? DISPOSITION: Time of Departure From ER 10/22/2020 17:14 Discharge/Transfer From ER Home 01 MEDICATION LISTS: CURRENT MEDICATION LIST cyclobenzaprine (Flexeril 10 mg oral tablet) 1 Tab(s) By Mouth As Needed as needed for 30 Days. gabapentin (gabapentin 300 mg oral capsule) 1 Capsule By Mouth 3 Times a day. hydroCHLOROthiazide (hydroCHLOROthiazide 12.5 mg oral tablet) 1 Tab(s) By Mouth once a day for 7 Days. Refills: 0. lisinopril By Mouth once a day. meloxicam 15 Milligram By Mouth once a day. methocarbamol (Robaxin 500 mg oral tablet) 1 Tab(s) By Mouth 3 Times a day for 5 Days. Refills: 0. naproxen (Naprosyn 500 mg oral tablet) 1 Tab(s) By Mouth Twice a day as needed for pain. Refills: 0. Diagnosis: Acute bilateral low back pain [M (more content not included)... [facility] 07-27-2020 Note [employer] COVID-19 Di rect assay_[employer] EUA [facility] Comment on above: Performed By: #### [id number] #### [facility] [address] [place] [address] 07-27-2020 Physician Hospital Discharge summary EMERGENCY DEPARTMENT DISCHARGE SUMMARY PATIENT NAME:LOW MARKHAM MRN: [id number] AGE: 39 Years SEX: Female PHONE:[id number] DOS: 07/27/2020 09:08:00 : 1980 ATTENDING PHYSICIAN:Eneida Alba PCP: Dilip Christensen MD CHIEF COMPLAINT: Covid exposure Allergies penicillin () Problems Active Headache, migraine HTN (hypertension) Anemia DISCHARGE DIAGNOSIS: DISCHARGE INSTRUCTIONS: COL COVID 19 Discharge Instructions Send Out Testing (Custom) ED PHYSICIAN DOCUMENTATION: DISPOSITION: Time of Departure From ER 07/27/2020 09:52 Discharge/Transfer From ER Home 01 MEDICATION LISTS: CURRENT MEDICATION LIST cyclobenzaprine (Flexeril 10 mg oral tablet) 1 Tab(s) By Mouth As Needed as needed for 30 Days. gabapentin (gabapentin 300 mg oral capsule) 1 Capsule By Mouth 3 Times a day. hydroCHLOROthiazide (hydroCHLOROthiazide 12.5 mg oral tablet) 1 Tab(s) By Mouth once a day for 7 Days. Refills: 0. lisinopril By Mouth once a day. meloxicam 15 Milligram By Mouth once a day. naproxen (Naprosyn 500 mg oral tablet) 1 Tab(s) By Mouth Twice a day as needed for pain. Refills: 0. Diagnosis: Acute bilateral low back pain [M54.5] ondansetron (Zofran 4 mg oral tablet) 1 Tab(s) By Mouth 3 Times a day as needed Nausea and Vomitting for 5 Days. Refills: 0. ondansetron (Zofran ODT 4 mg oral tablet, disintegrating) 1 Tab(s) By Mouth 3 Times a day as needed Nausea and Vomitting for 3 Days. Refills: 0. triamterene By Mouth Twice a day. MEDICATIONS GIVEN DURING MEDICAL VISIT None LAB RESULTS: LABORATORY TESTS: Pending Lab Result(s): Date Order Results 07/27/2020 09:22 Coronavirus (COVID-19/SARS-CoV-2) (Ordered RADIOLOGY: FOLLOW UP: FOLLOW-UP APPOINTMENTS: Provider: Specialty: Address: Date: Return to Emergency Department 1 to 2 days Comment: Follow-up as needed IF YOU WORSEN COME BACK Provider: Specialty: Address: Date: Your family doctor 3 to 4 days Comment: Call for an Appointment Call [phone] if you do not have one and they can help you become established with a family physician Provider: Specialty: Address: Date: CORONAVIRUS SELF QUARANTINE Follow-up as needed Comment: CDC guidelines for return to work/self quarantine as of 03/14/20: Covid+ with symptoms/Covid negative with symptoms concerning for COVID: 10 days since onset, 24 hours with no fever and improved symptoms Covid + asymptomatic: 10 days after first positive test if remain asymptomatic, repeat testing only for immunocompromised COVID exposure: asymptomatic- 14 days since known exposure [facility] Evaluation note Diagnosis Acne, unspecified acne type- Primary documented in this encounter [facility] note* Diagnosis Acne, unspecified acne type- Primary Encounter for long-term (current) use of high-risk medication Encounter for long-term (current) use of other medications Hidradenitis suppurativa Hidradenitis documented in this encounter [facility] note* Diagnosis Ectopic of right ovary- Primary Ectopic , unspecified location, unspecified whether intrauterine present documented in this encounter [facility] note* Diagnosis Missed menses- Primary Abdominal cramping in left lower quadrant documented in this encounter [facility] note* Diagnosis Lateral epicondylitis of left elbow- Primary documented in this encounter [facility] note* Diagnosis Strain of left elbow, initial encounter- Primary [facility] Diagnosis Chest wall pain- Primary Painful respiration [facility] Diagnosis Chest pain, unspecified type- Primary documented in this encounter [facility] note* Diagnosis Cellulitis of head except face- Primary documented in this encounter [facility] Discharge instructions* Attachments The following attachments cannot be sent through Care Everywhere. * Ectopic : Surgery (Serbian) * Salpingectomy: General Info (Serbian) * Anesthesia: General: General Info (Serbian) [facility] Attachments The following attachments cannot be sent through Care Everywhere. * Chest Pain: Musculoskeletal (Serbian) [facility]* Attachments The following attachments cannot be sent through Care Everywhere. * [facility] (Serbian) [facility] * Karolina Gasca, PLANNER CHIEF - 06/29/2018 Formatting of this note may be different from the original. Learning About How to Have a Healthy Back What causes back pain? Back pain is often caused by overuse, strain, or injury. For example, people often hurt their backsplaying sports or working in the yard, being jolted in a car accident, or lifting something too heavy. Aging plays a part too. Your bones and muscles tend to lose strength as you age, which makes injurymore likely. The spongy discs between the bones of the spine (vertebrae) may suffer from wear and tear and no longer provide enough cushion between the bones. A disc that bulges or breaks open (herniated disc) can press on nerves, causing back pain. In some people, back pain is the result of arthritis, broken vertebrae caused by bone loss (osteoporosis), illness, or a spine problem. Although most people have back pain at one time or another, there are steps you can take to make itless likely. How can you have a healthy back? Reduce stress on your back through good posture Slumping or slouching alone may not cause low back pain. But after the back has been strained or injured, bad posture can make pain worse. Sleep in a position that maintains your back's normal curves and on a mattress that feels comfortable. Sleep on your side with a pillow between your knees, or sleep on your back with a pillow under your knees. These positions can reduce strain on your back. Stand and sit up straight. Good posture generally means your ears, shoulders, and hips are in a straight line. If you must stand for a long time, put one foot on a stool, ledge, or box. Switch feet every now and then. Sit in a chair that is low enough to let you place both feet flat on the floor with both knees nearly level with your hips. If your chair or desk is too high, use a footrest to raise your knees. Place a small pillow, a rolled-up towel, or a lumbar roll in the curve of your back if you need extra support. Try a kneeling chair, which helps tilt your hips forward. This takes pressure off your lower back. Try sitting on an exercise ball. It can rock from side to side, which helps keep your back loose. When driving, keep your knees nearly level with your hips. Sit straight, and drive with both hands on the steering wheel. Your arms should be in a slightly bent position. Reduce stress on your back through careful lifting Squat down, bending at the hips and knees only. If you need to, put one knee to the floor and extend your other knee in front of you, bent at a right angle (half kneeling). Press your chest straight forward. This helps keep your upper back straight while keeping a slight arch in your low back. Hold the load as close to your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
--- NOTE | 2024-05-27 21:08 | ED_ITS ---
HPI HPI - General Adult General Chief complaint: Headache Stated complaint: HEADACHE, HIGH BLOOD PRESSURE Time Seen by Provider: 05/27/24 20:54 Source: patient Mode of arrival: walk-in History of Present Illness HPI narrative: This 43-year-old female who is on lisinopril for hypertension and has a history of migraine headaches presents for evaluation of a headache that started this morning upon awakening. She states she got up and took her blood pressure medication but had a persistent migraine headache all day. It is not associated with nausea, vomiting or photophobia. She states it is in the front of her head and radiates down to the back of her scalp and down her neck. She went to work tonight and after taking vqxf-lqo-[id number] migraine medications, eating and drinking her headache did not resolve and she told her boss that she thought she needed to come to the emergency department because her headache was likely related to her blood pressure. She does not have any slurred speech, blurred vision, confusion or other focal neurologic symptoms. She has no chest pain or shortness of breath. She has no dizziness. She has not had a fever. There was no thunderclap presentation of this headache and it is a typical migraine for her. Related Data Home Medications ?Medication ?Instructions ?Recorded ?Confirmed lisinopril 20 1 tab PO BID 05/27/24 05/27/24 mg-hydrochlorothiazide 12.5 mg tablet Allergies Allergy/AdvReac Type Severity Reaction Status Date / Time Penicillins Allergy Severe Hives Verified 04/07/24 18:45 Opioid HPI Opioid Management Most Recent Opioid Data: No Data to Display Review of Systems ROS Status of ROS 10 or more systems reviewed and unremark able except as noted in history and below Exam Narrative Exam Narrative: Vital signs and Nursing Notes reviewed: Patient is afebrile with a normal pulse, blood pressure is elevated at 198/93, she is not hypoxic with pulse ox of 98% on room air General: Awake, alert, oriented, no acute distress, lying comfortably on the stretcher, talking on the phone, no distress noted HEENT: Normocephalic atraumatic, mucous membranes are moist and pink, eyes are clear, normal conjunctiva, vision is grossly intact, posterior pharynx is normal in appearance. Neck: Supple, no meningeal signs, no anterior or posterior cervical lymphadenopathy Chest: Lungs are clear to auscultation with good air entry, there is no wheezing rhonchi or rales appreciated no accessory muscle use, patient is speaking in complete sentences-no chest wall tenderness to palpation CVS: Regular rate and rhythm S1-S2, no murmurs rubs or gallops, pulses are brisk and equal bilaterally ABD: Soft, nondistended, nontender, no rebound guarding or rigidity, bowel sounds are normal, no pulsatile masses appreciated Extremities: Moving all extremities, no lower extremity tenderness or swelling noted, negative Homans' sign, pulses are brisk and equal bilaterally Skin: Normal in appearance without rash,pallor, petechiae or purpura Neuro: No focal deficits, speech is clear, there is no facial droop, 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, upper and lower extremity strength and sensation is intact- NIH stroke scale is 0 Constitutional Vital Signs, click to edit/add: Last Vital Signs Temp 98.2 F 05/27/24 20:44 Pulse 79 05/27/24 20:44 Resp 16 05/27/24 20:44 BP 147/66 H 05/27/24 21:53 Pulse Ox 98 05/27/24 20:44 O2 Del Method Room Air 05/27/24 20:44 Course Vital Signs Vital signs: Vital Signs Temperature 98.2 F 05/27/24 20:44 Pulse Rate 79 05/27/24 20:44 Respiratory Rate 16 05/27/24 20:44 Blood Pressure 198/93 H 05/27/24 20:44 Pulse Oximetry 98 05/27/24 20:44 Oxygen Delivery Method Room Air 05/27/24 20:44 Temperature 98.2 F 05/27/24 20:44 Pulse Rate 79 05/27/24 20:44 Respiratory Rate 16 05/27/24 20:44 Blood Pressure 147/66 H 05/27/24 21:53 Pulse Oximetry 98 05/27/24 20:44 Oxygen Delivery Method Room Air 05/27/24 20:44 Medical Decision Making MDM Narrative Medical decision making narrative: This 43-year-old female with a history of hypertension who is a former but not current smoker presents for evaluation of a migraine headache that started earlier in the day. Despite taking several [id number]-igm-[id number] medications her headache did not resolve. She denies any thunderclap presentation of the headache and stated it was a typical migraine for her. She was also concerned that her blood pressure may be elevated because despite taking blood pressure medication she continues to have high blood pressure. She denied any chest pain or shortness of breath. Her neuroexam is normal. An IV was placed and she was medicated with IV fluids, Reglan, 10 mg of IV labetalol and Toradol. Routine labs are reviewed. She has a normal troponin. She has normal electrolytes with a mild elevation in her creatinine of 1.08. CBC and differential are normal. Her blood pressure has steadily come down and at the time of this dictation is 147/66. Her headache has resolved and she feels comfortable being discharged home. She does request a prescription for a beta-jimi because she feels this will be more helpful for both her headaches and blood pressure control. She was given a prescription for Toprol 50 mg to take on a daily basis until she can follow-up with her family physician. Lab Data Lab results reviewed: Yes I reviewed the patient's lab results Labs: Lab Results 05/27/24 Range/Units 21:18 WBC 10.5 (4.0-11.0) 10^3/uL RBC 3.68 L (4.20-5.40) 10^6/uL Hgb 12.0 (12.0-16.0) g/dL Hct 36.4 (36.0-48.0) % MCV 98.9 (81.0-99.0) fL MCH 32.6 (26.7-34.0) pg MCHC 33.0 (29.9-35.2) g/dL RDW 12.9 (11.0-15.0) % Plt Count 308 (150-450) 10^3/uL MPV 10.1 (9.5-13.5) fL Neut % (Auto) 60.5 (43.0-75.0) % Lymph % (Auto) 30.2 (20.5-60.0) % Darke % (Auto) 7.2 (1.7-12.0) % Eos % (Auto) 1.4 (0.9-7.0) % Baso % (Auto) 0.4 (0.2-2.0) % Neut # (Auto) 6.4 (1.4-6.5) 10^3/uL Lymph # (Auto) 3.2 (1.2-3.8) 10^3/uL Darke # (Auto) 0.8 (0.3-0.8) 10^3/uL Eos # (Auto) 0.2 (0.0-0.7) 10^3/uL Baso # (Auto) 0.0 (0.0-0.1) 10^3/uL Abs Immat Gran (auto) 0.03 (0.00-0.03) 10^3/uL Imm/Tot Granulo (auto) 0.3 (0.0-0.5) % Sodium 140 (136-145) mmol/L Potassium 3.6 (3.5-5.1) mmol/L Chloride 104 (98-107) mmol/L Carbon Dioxide 28.1 (21.0-32.0) mmol/L Anion Gap 11.5 BUN 13.0 (7.0-18.0) mg/dL Creatinine 1.08 H (0.55-1.02) mg/dL Est GFR ( Amer) >60 (>=60 mL/min/1.73m^2) Est GFR (Non-Af Amer) 56 L (>=60 mL/min/1.73m^2) BUN/Creatinine Ratio 12.0 Glucose 120 H (74-106) mg/dL Calcium 9.0 (8.5-10.1) mg/dL Total Bilirubin 0.2 (0.2-1.0) mg/dL AST 18 (15-37) U/L ALT 20 (14-59) U/L Alkaline Phosphatase 61 (46-116) U/L Troponin I High Sens 7.3 (4.0-51.3) pg/mL Total Protein 6.4 (6.4-8.2) g/dL Albumin 3.2 L (3.4-5.0) g/dL Globulin 3.2 g/dL Albumin/Globulin Ratio 1.0 Discharge Plan Discharge Chief Complaint: Headache Clinical Impression: Migraine, Hypertension Patient Disposition: Home, Self-Care Time of Disposition Decision: 22:04 Condition: Good Prescriptions / Home Meds: No Action lisinopril-hydrochlorothiazide 20-12.5 mg tablet 1 tab PO BID Print Language: Dominican Instructions: Migraine Headache (ED), Hypertension (ED) Referrals: Physician,Non-Staff, MD [Primary Care Provider] - 1 week
[2024-05-27 21:27] LABS: Basophils Percent Auto 0.4 % (0.2-2.0); Eosinophils Absolute Auto 0.2 10^3/uL (0.0-0.7); Eosinophils Percent Auto 1.4 % (0.9-7.0); Hematocrit 36.4 % (36.0-48.0); Immature Granulocytes Abs Auto 0.03 10^3/uL (0.00-0.03); Immature Granulocytes Pct Auto 0.3 % (0.0-0.5); Lymphocytes Absolute Auto 3.2 10^3/uL (1.2-3.8); Lymphocytes Percent Auto 30.2 % (20.5-60.0); Mean Corpuscular Hemoglobin 32.6 pg (26.7-34.0); Mean Corpuscular Volume 98.9 fL (81.0-99.0); Mean Platelet Volume 10.1 fL (9.5-13.5); Monocytes Absolute Auto 0.8 10^3/uL (0.3-0.8); Monocytes Percent Auto 7.2 % (1.7-12.0); Neutrophils Absolute Auto 6.4 10^3/uL (1.4-6.5); Neutrophils Percent Auto 60.5 % (43.0-75.0); Platelet Count 308 10^3/uL (150-450); Red Blood Count 3.68 10^6/uL (4.20-5.40); Red Cell Distribution Width 12.9 % (11.0-15.0); White Blood Count 10.5 10^3/uL (4.0-11.0)
[2024-05-27] MEDS: KETOROLAC TROMETHAMINE 30 MG/ML VIAL IVP (21:28)
[2024-05-27] MEDS: LABETALOL HCL 20 MG/4 ML SYRINGE 10 MG IVP (21:28)
[2024-05-27] MEDS: METOCLOPRAMIDE HCL 10 MG/2 ML VIAL IVP (21:28)
[2024-05-27 21:35] VITALS: BP 188/80
[2024-05-27 21:49] LABS: Alanine Aminotransferase 20 U/L (14-59); Albumin Level 3.2 g/dL (3.4-5.0); Alkaline Phosphatase 61 U/L (46-116); Anion Gap 11.5; Aspartate Amino Transferase 18 U/L (15-37); Bilirubin Total 0.2 mg/dL (0.2-1.0); Carbon Dioxide 28.1 mmol/L (21.0-32.0); Chloride 104 mmol/L (98-107); Estimated GFR (African America >60 (>=60 mL/min/1.73m^2); Estimated GFR (Non-African Ame 56 (>=60 mL/min/1.73m^2); Globulin 3.2 g/dL; Glucose 120 mg/dL (74-106); Potassium 3.6 mmol/L (3.5-5.1); Sodium 140 mmol/L (136-145); Total Protein 6.4 g/dL (6.4-8.2)
[2024-05-27 21:53] VITALS: BP 147/66
[2024-05-27 21:54] LABS: Troponin I High Sensitivity 7.3 pg/mL (4.0-51.3)
[2024-05-27 22:18] VITALS: BP 150/72; PULSE 81; O2SAT 98
== END 2024-05-27 22:20 | disposition home or self-care (01) ==
PROVIDERS: Emergency Provider Emergency Medicine
DX: G43.909 Migraine, unspecified, not intractable, without status migrainosus (principal); I10 Essential (primary) hypertension
CPT/HCPCS: 36415; 80053; 84484; 85025; 96374; 96375; 99284; J1885; J1920; J2765